=== PATIENT | female | born 1945 | race Caucasian/White ===

== ENCOUNTER 2023-09-12 13:47 | Outpatient (AMB) | payer MEDICARE, OTHER, SELFPAY ==
--- NOTE | 2023-09-12 13:58 | HO.NEPHOV_ITS ---
HPI HPI Comments History of Present Illness Details I had the privilege of seeing Destiny in follow-up of her chronic kidney disease and hypertension. She has history of diabetes and hypertension. She also has history of Raynaud's as well as arthritic symptoms. Her A1c is 6.2. She had seen a sewing machine tester in the past. She was taking nonsteroidal anti- inflammatory medications in the past. She is on RADHA-inhibitor and diuretics. She feels her blood sugar and blood pressure well controlled. She has no history of coronary disease, CVA, CARLOS, CHF, renal stones. She has a new diagnosis of carotid / subclavian stenosis She is due to have CT chest next week to R/O a lung disorder giving SOB.. [facility] Medical History (Updated 09/12/23 @ 14:28 by Aleksander Granados MD) Type 2 diabetes mellitus with renal complication Obstructive sleep apnea Lichen planus of tongue Irritable bowel syndrome Hypersomnia with sleep apnea Hyperlipidemia Hallux valgus of left foot Chronic kidney disease, stage 3a Chronic headache disorder Acquired hypothyroidism Hypertension Vital Signs 09/12/23 14:00 Height 5 ft 7 in Weight 245 lb BMI 38.4 BP 140/80 H Blood Pressure Location Rt brachial Position Sitting Physical Exam Vital Signs: Last Vital Signs BP 140/80 H 09/12/23 14:00 BMI result Body Mass Index 38.4 Const General: comfortable and no acute distress Orientation/consciousness: patient oriented x3 HEENT Head: Yes normocephalic Mouth: Normal oral and palatal mucosa present Eyes EOM: EOMs intact bilaterally Neck Neck: Yes supple Resp Auscultation: clear to auscultation bilaterally Cardio Jugular venous distension: no JVD Rate: regular rate GI Palpation (GI): Soft to palpation Auscultation: normal bowel sounds General: Yes no CVA tenderness Back/Spine/Pelvis Back: no CVA tenderness Skin General skin exam: no rashes or lesions noted Neuro General: patient oriented x3 and moves all extremities Extrem Other: Raynaud's in both upper and lower extremities but more so in the lower extremities. 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 She is on RADHA-inhibitor. She had sulfa allergy and takes only amiloride. She was encouraged to minimize nonsteroidal anti-inflammatories and maintain good hyd ration. She needs good blood sugar and blood pressure control. She may be a candidate for Doppler of renal arteries in the future. Follow-up lab work was ordered. Follow-up appointment was given. Answered all questions. Orders: Orders Creatinine Today I10 - Essential (primary) hypertension, N18.2 - Chronic kidney disease, stage 2 (mild), R80.9 - Proteinuria, unspecified Blood Urea Nitrogen Today I10 - Essential (primary) hypertension, N18.2 - Chronic kidney disease, stage 2 (mild), R80.9 - Proteinuria, unspecified Electrolytes Today I10 - Essential (primary) hypertension, N18.2 - Chronic kidney disease, stage 2 (mild), R80.9 - Proteinuria, unspecified Protein Creatinine Ratio, Ur Today I10 - Essential (primary) hypertension, N18.2 - Chronic kidney disease, stage 2 (mild), R80.9 - Proteinuria, unspecified Coding Level of Care Code Est Pt Level 3 (10828) Diagnoses Primary hypertension I10 Hypertension type: primary hypertension Other proteinuria R80.8 Proteinuria type: other CKD (chronic kidney disease) stage 2, GFR 60-89 ml/min N18.2 Results Reviewed Nephrology Results: No Data to Display
[2023-09-12 14:00] VITALS: BP 140/80; BMI 38.4
== END 2023-09-12 14:38 | disposition home or self-care (01) ==
PROVIDERS: PCP Internal Medicine; Visit Provider Internal Medicine Nephrology
DX: I12.9 Hypertensive chronic kidney disease with stage 1 through stage 4 chronic kidney disease, or unspecified chronic kidney disease (principal); R80.8 Other proteinuria; N18.2 Chronic kidney disease, stage 2 (mild)
CPT/HCPCS: 99213

== ENCOUNTER → 2023-09-12 13:47 | Outpatient (BNVA) | payer MEDICARE, OTHER, SELFPAY | PROVIDERS: PCP Internal Medicine; Visit Provider Internal Medicine Nephrology | DX: I12.9 Hypertensive chronic kidney disease with stage 1 through stage 4 chronic kidney disease, or unspecified chronic kidney disease (principal); N18.2 Chronic kidney disease, stage 2 (mild); R80.8 Other proteinuria | CPT/HCPCS: 99212 ==

== ENCOUNTER 2024-03-12 13:18 | Outpatient (AMB) | payer MEDICARE, OTHER, SELFPAY ==
--- NOTE | 2024-03-12 13:30 | HO.NEPHOV ---
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 She has history of diabetes and hypertension. She also has history of Raynaud's as well as arthritic symptoms. Her A1c is good. She had seen a portfolio manager in the past. She was taking nonsteroidal anti-inflammatory medications in the past. She is on RADHA-inhibitor and diuretics. She feels her blood sugar and blood pressure well controlled. She has no history of coronary disease, CVA, CARLOS, CHF, renal stones. She has a new diagnosis of carotid / subclavian stenosis She had CT chest which has R/O out a lung malignancy. [facility] Medical History (Updated 09/12/23 @ 14:28 by Aleksander Granados MD) Type 2 diabetes mellitus with renal complication Obstructive sleep apnea Lichen planus of tongue Irritable bowel syndrome Hypersomnia with sleep apnea Hyperlipidemia Hallux valgus of left foot Chronic kidney disease, stage 3a Chronic headache disorder Acquired hypothyroidism Hypertension Surgical History History of knee surgery History of tubal ligation History of appendectomy History of tonsillectomy Family History Father Diabetes Social History Alcohol intake: current Patient Tobacco Use Status: Former Tobacco user Use of substances other than those prescribed or required for medical reasons: No Review of Systems Const All systems reviewed & are unremarkable except as noted in HPI and below Physical Exam Vital Signs: Last Vital Signs BP 132/70 03/12/24 13:34 BMI result Body Mass Index 36.2 Const General: comfortable and no acute distress Orientation/consciousness: patient oriented x3 HEENT Head: Yes normocephalic Mouth: Normal oral and palatal mucosa present Eyes EOM: EOMs intact bilaterally Neck Neck: Yes supple Resp Auscultation: clear to auscultation bilaterally Cardio Jugular venous distension: no JVD Rate: regular rate GI Palpation (GI): Soft to palpation Auscultation: normal bowel sounds General: Yes no CVA tenderness Back/Spine/Pelvis Back: no CVA tenderness Skin General skin exam: no rashes or lesions noted Neuro General: patient oriented x3 and moves all extremities Results Reviewed Nephrology Results: No Data to Display Assessment & Plan Assessment & Plan (1) CKD (chronic kidney disease) stage 2, GFR 60-89 ml/min: Code(s): N18.2 - Chronic kidney disease, stage 2 (mild) Category: Medical (2) Hypertension: Code(s): I10 - Essential (primary) hypertension Category: Medical Qualifiers: Hypertension type: primary hypertension Qualified Code(s): I10 - Essential (primary) hypertension Plan 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 She is on RADHA-inhibitor. She had sulfa allergy and takes only amiloride. She was encouraged to minimize nonsteroidal anti-inflammatories and maintain good hydration. She needs good blood sugar and blood pressure control. She may be a candidate for Doppler of renal arteries in the future. Follow-up lab work was ordered. Follow-up appointment was given. Answered all questions Orders: Orders Creatinine Today I10 - Essential (primary) hypertension, N18.2 - Chronic kidney disease, stage 2 (mild) Blood Urea Nitrogen Today I10 - Essential (primary) hypertension, N18.2 - Chronic kidney disease, stage 2 (mild) Electrolytes Today I10 - Essential (primary) hypertension, N18.2 - Chronic kidney disease, stage 2 (mild) Coding Level of Care Code Est Pt Level 4 (15140) Diagnoses CKD (chronic kidney disease) stage 2, GFR 60-89 ml/min N18.2 Primary hypertension I10 Hypertension type: primary hypertension
[2024-03-12 13:34] VITALS: BP 132/70; BMI 36.2
== END 2024-03-12 13:48 | disposition home or self-care (01) ==
PROVIDERS: PCP Internal Medicine; Visit Provider Internal Medicine Nephrology
DX: I12.9 Hypertensive chronic kidney disease with stage 1 through stage 4 chronic kidney disease, or unspecified chronic kidney disease (principal); N18.2 Chronic kidney disease, stage 2 (mild)
CPT/HCPCS: 99214

== ENCOUNTER → 2024-03-12 13:18 | Outpatient (BNVA) | payer MEDICARE, OTHER, SELFPAY | PROVIDERS: PCP Internal Medicine; Visit Provider Internal Medicine Nephrology | DX: I12.9 Hypertensive chronic kidney disease with stage 1 through stage 4 chronic kidney disease, or unspecified chronic kidney disease (principal); N18.2 Chronic kidney disease, stage 2 (mild) | CPT/HCPCS: 99212 ==

== ENCOUNTER 2024-05-16 11:15 | Outpatient (REF) | payer MEDICARE, OTHER, SELFPAY | END 2024-05-16 11:16 | disposition home or self-care (01) | LOC: HO.HOSX 11:15 | PROVIDERS: Visit Provider Orthopaedic Surgery | DX: Z13.89 Encounter for screening for other disorder (principal) ==

== ENCOUNTER 2024-05-22 07:52 | Outpatient (AMB) | payer MEDICARE, OTHER, SELFPAY ==
--- NOTE | 2024-05-22 07:59 | A.OFFVIS_ITS ---
Intake Visit Reasons: Bilateral knee pains Intake Note: Destiny is a 78 year old female who presents with complaints of progressively worsening bilateral knee pains. The patient describes her pains as sharp in nature. Her pains have gotten worse over the last few years in spite of continued non operative treatments. She has done physical therapy exercises which aggravated her pain. She has also had cortisone injections in the past which gave her temporary relief. She has tried Tylenol and anti-inflammatory medicines which gave her minimal relief. She would like to hold off on total knee replacement surgery for as long as possible. Allergies Sulfa (Sulfonamide Antibiotics) Allergy (Verified 05/22/24 08:00) Unknown Medication List - Last Reconciled 05/22/24 by Ever Martin MD acetaminophen ER (Tylenol Arthritis Pain) 1,300 mg PO BID albuterol sulfate 90 mcg/actuation inhalation amiloride mg PO aspirin 81 mg PO BID atorvastatin 80 mg PO DAILY coenzyme Q10 (CoQ-10) 100 mg PO DAILY fluticasone propion-salmeterol 115-21 mcg/actuation (Advair HFA) 2 puffs inhalation BID levothyroxine 25 mcg PO DAILY lisinopril 20 mg PO DAILY magnesium oxide 400 mg PO DAILY mirtazapine 15 mg PO BEDTIME multivitamin 1 tab PO DAILY nortriptyline 50 mg PO BEDTIME PRN omega 0-atp-jml-fish oil 1,000 mg (120 mg-180 mg) (Fish Oil) 1 cap PO BID pen needle, diabetic (BD Ultra-Fine Mini Pen Needle) As directed semaglutide (Ozempic) mg subcut vitamin B complex 1 tab PO DAILY vitamin E mixed units PO BID [facility] Medical History Type 2 diabetes mellitus with renal complication Obstructive sleep apnea Lichen planus of tongue Irritable bowel syndrome Hypersomnia with sleep apnea Hyperlipidemia Hallux valgus of left foot Chronic kidney disease, stage 3a Chronic headache disorder Acquired hypothyroidism Hypertension Surgical History History of knee surgery History of tubal ligation History of appendectomy History of tonsillectomy Family History Father Diabetes Social History Alcohol intake: current Patient Tobacco Use Status: Former Tobacco user Physical Exam Const Other: Well-nourished well-developed very friendly female awake alert and oriented x3 in no acute distress Extrem Other: Bilateral lower extremity examination shows good capillary refill, no skin lesions noted, normal sensation light touch Bilateral knee examination shows minimal effusions, palpable crepitus with range of motion, pain with range of motion, range of motion from -3 degrees to 115 degrees, no instability Office Procedures AMB Joint Injection/Aspiration Joint Injection/Aspiration Primary Site: right knee Prep: site was prepped using aseptic technique Injected: 40 mg of, DepoMedrol and 1% plain lidocaine Procedure: The patient tolerated the procedure well Coding 57975 - Large joint Procedure code (CPT) selection complete AMB Joint Injection/Aspiration Joint Injection/Aspiration Primary Site: left knee Prep: site was prepped using aseptic technique Injected: 40 mg of, DepoMedrol and 1% plain lidocaine Procedure: The patient tolerated the procedure well Coding 14484 - Large joint Procedure code (CPT) selection complete Results Reviewed Results Reviewed: X-rays of the patient's bilateral knee show severe joint space narrowing most significant in the medial compartments and patellofemoral joints, subchondral sclerosis, osteophyte formation, no acute bony abnormalities Assessment & Plan Assessment & Plan (1) Left knee pain: Code(s): M25.562 - Pain in left knee Category: Medical (2) Right knee pain: Code(s): M25.561 - Pain in right knee Category: Medical Plan Destiny presents with bilateral knee pains due to degenerative joint disease. I had a lengthy discussion with the patient regarding the treatment options. The risks and benefits of bilateral knee cortisone injections were discussed at length with the patient. The patient wished to proceed. She tolerated the injections well. She will continue with her home exercise program. She will contact me prior to her follow-up appointment in 3 months should any questions o r concerns arise. Feel free to call me at any time should questions regarding her orthopedic management arise. Thank you very much for asking me to see this very friendly patient. I spent 21 minutes in reviewing the patient's records and imaging studies, seeing the patient and documenting in the medical record. Orders: Orders XR knee LT 3V 05/22/24 M25.562 - Pain in left knee XR knee RT 3V 05/22/24 M25.561 - Pain in right knee AMB Joint Injection/Aspiration 05/22/24 M25.562 - Pain in left knee AMB Joint Injection/Aspiration 05/24/24 M25.561 - Pain in right knee Coding Level of Care Code Est Pt Level 3 (78389) Complex EM visit Add On G2211 Diagnoses Left knee pain M25.562 Right knee pain M25.561 CPT Codes Coding - 38372 Large joint: 36774 - Large joint ([id number]) Coding - 78821 Large joint: 92038 - Large joint ([id number])
== END 2024-05-22 08:37 | disposition home or self-care (01) ==
PROVIDERS: PCP Internal Medicine; Visit Provider Orthopaedic Surgery
DX: M25.562 Pain in left knee (principal); M25.561 Pain in right knee
CPT/HCPCS: 20610; 99213

== ENCOUNTER → 2024-05-22 07:54 | Outpatient (BNV) | payer MEDICARE, OTHER, SELFPAY | PROVIDERS: Visit Provider Radiology Diagnostic Radiology | DX: M21.062 Valgus deformity, not elsewhere classified, left knee (principal); M17.12 Unilateral primary osteoarthritis, left knee | CPT/HCPCS: 73562 ==

== ENCOUNTER 2024-05-22 09:16 | Outpatient (REF) | payer MEDICARE, OTHER, SELFPAY | END 2024-05-22 09:17 | disposition home or self-care (01) | LOC: HO.HOSX 09:16 | PROVIDERS: Visit Provider Orthopaedic Surgery | DX: M25.562 Pain in left knee (principal); M25.561 Pain in right knee | CPT/HCPCS: 20610; 73562; 99212; J1010; J2003 ==

== ENCOUNTER 2024-08-22 12:42 | Outpatient (AMB) | payer MEDICARE, OTHER, SELFPAY ==
--- OUTSIDE RECORDS SUMMARY | 2024-08-22 12:44 | XMS_ITS | Clinical Summary ---
Author Organization [facility] Address [address] [facility] [place] [address] Phone Care Team Providers Care Workers' Compensation Claims Supervisor Name Role Phone ElissarosarioGeoffrey doran Primary Care Provider [phone] Allergies Active Allergy Reactions Criticality Noted Date Comments Sulfa Antibiotics Hives 04/12/2005 Medications levothyroxine (SYNTHROID, LEVOTHROID) 25 MCG tablet Take 1 tablet by mouth 1 (one) time each day 7 Active Diclofenac Sodium 1.6 % gel Apply 1 g topically 2 Active aMILoride (MIDAMOR) 5 MG tablet Take 1 tablet by mouth 1 (one) time each day 7 Active lisinopril 20 MG tablet Take 1 tablet by mouth 1 (one) time each day 8 Active mirtazapine (REMERON) 15 MG tablet Take 15 mg by mouth every night 1 hour before bed 0 Active atorvastatin (LIPITOR) 80 MG tablet Take 1 tablet by mouth 1 (one) time each day 7 Active nortriptyline (PAMELOR) 50 MG capsule Take 1 capsule by mouth at bed time 7 Active liraglutide (Victoza) 18 MG/3ML injection Inject 1.2 mg under the skin 1 (one) time each day 8 Active albuterol HFA (PROVENTIL HFA;VENTOLIN HFA) 108 (90 Base) MCG/ACT inhaler Inhale 2 puffs every 4 (four) hours if needed For wheezing 1 Active clobetasol (TEMOVATE) 0.05 % gel Apply 1 applicator topically every night 7 Active fluticasone (FLONASE) 50 MCG/ACT nasal spray Administer 1 spray into each nostril 2 (two) times a day 7 Active omega-3 (FISH OIL) 1000 MG capsule Active sertraline (ZOLOFT) 50 MG tablet Take 50 mg by mouth 1 (one) time each day 0 Active Vitamin E 500 UNIT/GM powder Activ e Bromfenac Sodium (Prolensa) 0.07 % solution INSTILL 1 DROP IN OPERATED EYE AT BEDTIME FOR 3 WEEKS Active Active Problems Problem Noted Date Diagnosed Date Stage 3a chronic kidney disease 09/15/2022 Hypertension 09/15/2022 Obstructive sleep apnea syndrome 09/25/2020 03/27/2023 Type 2 diabetes mellitus 07/09/2020 023 Hallux valgus of left foot 12/03/201903/27 Arthritis of left knee 05/03/2018 3 Primary gonarthrosis, bilateral 02/01/2018 03/27/2023 Osteoarthritis of knee 07/12/2017 3 Overview (03/27/2023): Bilateral Supartz injections by Dr Martin 06/27/17 Acquired hypothyroidism 12/01/2016 03/27/20 23 Chronic headache disorder 06/15/20112022 Irritable bowel syndrome 06/15/2011 023 Overview (03/27/2023): Alt c/d, onset age 22. Hypertensive retinopathy 12/24/2008 023 Lichen planus 12/24/2008 03/27/2023 Severe obesity 11/28/2007 03/27/2023 Hyperlipidemia 04/12/2005 03/27/2023 Hypersomnia with sleep apnea 04/12/2005 Overview (03/27/2023): IMO update Social History Tobacco Use Types Packs/Day Years Used Date Smoking Tobacco: Never Assessed Comments Unknown Sex and Gender Information Value Date Recorded Sex Assigned at Not on file Legal Sex Female 8:02 AM EST Gender Identity Not on file Sexual Orientation Not on file Last Filed Vital Signs Vital Sign Reading Time Taken Comments Blood Pressure 121/68 03/28/2023 1:37 PM EDT Pulse 102 03/28/2023 1:37 PM EDT Temperature - - Respiratory Rate - - Oxygen Saturation 96% 03/28/2023 1:37 PM EDT Inhaled Oxygen Concentration - - Weight 112 kg (247 lb 6.4 oz) 03/28/2023 1:37 PM EDT Height 167.6 cm (5' 6 ) 09/15/2022 3:13 PM EST Body Mass Index 39.93 09/15/2022 3:13 PM EST Plan of Treatment Health Maintenance Due Date Last Done Comments Diabetes: Ophthalmology Exam 06/30/2022 Diabetes: Pedal Pulse Checked 06/30/2022 Diabetes: Sensory Foot Exam 06/30/2022 Diabetes: Visual Foot Exam 06/30/2022 Diabetes: Hemoglobin A1C 05/18/2023 02/15/2023, 11/0 02/2022 Influenza Vaccine (#1) 2024 , 02/22/2020, 03/30/2019, Additional history exists Hepatitis B Vaccine Aged Out 09/09/2008, 10/13/2001, 09/18/2001 No longer eligible based on patient's age to complete this topic Pneumococcal Vaccine: 65+ Years Completed 10/06/2015, 03/13/2013 Insurance MEDICARE [facility] MEDICARE [facility] Care Teams Workers' Compensation Claims Supervisor Relationship Specialty Start Date End Date Geoffrey Dooley [address] [place] [id number] PCP - General Internal Medicine 03/28/23
--- OUTSIDE RECORDS SUMMARY | 2024-08-22 12:45 | XMS_ITS | Encounter Summary ---
Author Organization [facility] Address [address] [place] [address] Care Team Providers Care Plant Anatomy Teacher Name Role Phone Geoffrey Velasco MD Primary Care Provider [phone] Reason for Visit * Reason Onset Date Comments DME request 08/12/2024 Encounter Details Date Type Department Care Team ([facility] Contact Info) Description 08/19/2024 Telephone [facility] [address] [place] [address] [place] DME request Social History Tobacco Use Types Packs/Day Years Used Date Smoking Tobacco: Former Cigarettes 1.5 28.7 0 07/10/1965 - 04/09/1994 Smokeless Tobacco: Never Alcohol Use Standard Drinks/Week Comments Yes 0 (1 standard drink = 0.6 oz pur e alcohol) Housing Instability Answer Date Recorde d Are you worried that in the next 2 months you may not have stable housing? No 05/27/2024 Food Access & Nutrition Answer Date Rec orded Do you have access to a vari ety of food including fruits and vegetables? Yes 05/27/2024 Access to Healthcare Answer Date Record ed Within the last 3 months, ho w many times did you visit the emergency department for your medical care? 0 05/27/2024 Health Literacy Answer Date Recorded How often do you need to hav e someone help you when you read instructions, pamphlets, or other written material from your doctor or pharmacy? Never 05/27/2024 Caregiver: How often do you need to have someone help you when you read instructions, pamphlets, or other written material from your doctor or pharmacy? Not on file 05/27/2024 Financial Risk Answer Date Recorded How hard is it for you to pa y for the very basics like food, housing, medical care, and air conditioning / heating? Not very hard 05/27/2024 Transportation Answer Date Recorded Has the lack of transportati on kept you from meetings, work, or from getting things needed for daily living? No Has the lack of transportati on kept you from medical appointments or from getting medications? No 05/27/2024 Social Isolation Answer Date Recorded How often do you feel lonely or isolated from th ose around you? Never 05/27/2024 Food Risk Answer Date Recorded Within the past 12 months we worried whether our food would run out before we got money to buy more. Never true 05/27/2024 Within the past 12 months th e food we bought just didn't last and we didn't have money to get more. Never true 05/27/2024 Dependent Care Answer Date Recorded Do you need help finding or paying for care for your loved ones. For example, child care associate or elderly care for an older adult? No 05/27/2024 Education Answer Date Recorded Do you think completing more education or training, like finishing a GED, going to college, or learning a trade, would be helpful for you? No 05/27/2024 Employment and Income Answer Date Recor ded During the last four weeks, have you been actively looking for work? No 05/27/2024 Living Situation Answer Date Recorded What is your living situation? 1 07/27/2023 Comments Unknown Sex and Gender Information Value Date Recorded Sex Assigned at Not on file Legal Sex Female 2:35 AM EST Gender Identity Not on file Sexual Orientation Not on file documented as of this encounter Progress Notes * [address] [place] - 08/19/2024 10:39 AM EST Order for overnight oximetry faxed to [facility]. Fax confirmation received documented in this encounter Plan of Treatment Upcoming Encounters Date Type Department Care Team (Late st Contact Info) Description 10/04/2024 3:00 PM EDT Office Visit Internal Medicine - [facility] [address] [facility] [place] [place] [address] Tami Young, GRAEME [address] [place] [address] 12/12/2024 1:00 PM EDT Office Visit Pulmonolgy - [place] [address] [place] [address] Mignon Denis NP [address] [place] [address] 12/23/2024 12:00 PM EDT Ancillary Procedure [facility] [address] [facility] [address] [place] [phone] 03/13/2025 11:00 AM EDT Office Visit Vascular Surgery - [place] [address] [place] [address] Jez Koenig MD [address] [place] [address] documented as of this encounter Visit Diagnoses Not on filedocumented in this encounter Additional Health Concerns Assessment Noted Time PHQ-9 Depression Total Score: 0 05/27/20 24 6:16 PM EST documented as of this encounter Care Teams Plant Anatomy Teacher Relationship Specialty Start Date End Date Geoffrey Velasco MD [address] [place] [address] PCP - General Internal Medicine 04/21/20 documented as of this encounter
--- OUTSIDE RECORDS SUMMARY | 2024-08-22 12:45 | XMS_ITS | Clinical Summary ---
Author Organization [facility] Address [address] [place] [address] Care Team Providers Care Pr Specialist Name Role Phone Vy France MD Primary Care Provider [phone] Allergies Active Allergy Reactions Criticality Noted Date Comments Sulfa Antibiotics 03/20/2017 Medications Medication Sig Dispensed Refills Start Date End Date Status AMILoride (MIDAMOR) 5 MG tablet TAKE 1 TABLET BY MOUTH EVERY DAY 1 02/10/2017 Active atorvastatin (LIPITOR) tablet 80 mg TAKE 1 TABLET BY MOUTH EVERY DAY 1 02/26/2017 Active clobetasol (TEMOVATE) 0.05 % GEL APPLY TOPICALLY AT BEDTIME DIRECTED BY DR CORNELL 1 01/01/2017 Active diltiazem (CARDIZEM CD) 240 MG 24 hr capsule Take 240 mg by mouth daily. 1 01/30/2017 Active fluticasone (FLONASE) 50 MCG/ACT nasal spray USE 1 SPRAY INTO EACH NOSTRIL TWICE DAILY 5 12/19/2016 Active levothyroxine (SYNTHROID, LEVOXYL) tablet 25 mcg TAKE 1 TABLET BY MOUTH EVERY DAY 3 02/26/2017 Active lisinopril (PRINIVIL,ZESTRIL) tablet 10 mg Take 10 mg by mouth daily. 1 02/03/2017 Active nortriptyline (PAMELOR) 50 MG capsule Take 50 mg by mouth every night at bedtime. 5 02/14/2017 Active B Complex Vitamins (VITAMIN-B COMPLEX) TABS Take by mouth. 0 Active Calcium Citrate-Vitamin D (CALCIUM + D PO) Take by mouth. 0 Acti ve Coenzyme Q10 (CO Q-10) 30 MG CAPS Take by mouth. 0 Acti ve cycloSPORINE (RESTASIS) 0.05 % ophthalmic emulsion Apply to eye. 0 Ac tive Yantis-3 Fatty Acids (FISH OIL PO) by Does not apply route. 0 Active glucosamine-chondroit in 500-400 MG tablet Take by mouth. 0 Active MAGNESIUM CHLORIDE PO Take by mouth. 0 Active Melatonin ER 3 MG TBCR Take by mouth. 0 Active Multiple Vitamins-Minerals (MULTIVITAMIN PO) Take by mouth. 0 Act renetta NUTRITIONAL SUPPLEMENTS PO Take 2 tablets by mouth. 0 Active aspirin (SB LOW DOSE ASA EC) 81 MG EC tablet 1 TABLET DAILY 0 10/26/2007 Active Vitamin E 500 UNIT/GM POWD by Does not apply route. 0 Active Insulin Pen Needle (PEN NEEDLES 09/22 ) 31G X 5 MM MISC 1 each by Does not apply route. 0 01/24/2018 Active liraglutide (VICTOZA) injection 18 mg/3 mL Inject 1.2 mg under the skin. 0 01/24/2018 Active aMILoride (MIDAMOR) 5 MG tablet TAKE 1 TABLET BY MOUTH EVERY DAY 0 10/13/2017 Active atorvastatin (LIPITOR) tablet 80 mg TAKE 1 TABLET BY MOUTH EVERY DAY 0 11/20/2017 Active glucosamine-chondroit in 500-400 MG tablet Take by mouth. 0 Active levothyroxine (SYNTHROID, LEVOXYL) tablet 25 mcg TAKE 1 TABLET BY MOUTH EVERY DAY 0 11/20/2017 Active lisinopril (PRINIVIL,ZESTRIL) tablet 20 mg Take 20 mg by mouth. 0 08/29/2017 Active nortriptyline (PAMELOR) 50 MG capsule TAKE ONE CAPSULE BY MOUTH AT BEDTIME 0 09/18/2017 Active albuterol (PROVENTIL HFA;VENTOLIN HFA) 108 (90 Base) MCG/ACT inhaler Inhale 2 puffs into the lungs. 0 Active liraglutide (VICTOZA) injection 18 mg/3 mL Inject 1.2 mg under the skin. 0 10/24/2018 Active meloxicam (MOBIC) 15 MG tablet Take 15 mg by mouth. 0 05/15/2019 Active sertraline (ZOLOFT) 50 MG tablet Take 50 mg by mouth daily. 0 01/17/2020 Active mirtazapine (REMERON) 15 MG tablet TAKE 1 TABLET BY MOUTH ONE HOUR BEFORE BEDTIME 0 12/02/2019 Active ibuprofen 800 MG tablet TAKE 1 TABLET BY MOUTH 2 TIMES DAILY NEEDED FOR PAIN. 0 01/08/2021 Active methocarbamol (ROBAXIN) 500 MG tablet 0 07/16/2021 Active Diclofenac Sodium 1.6 % GEL Apply 1 g topically. 0 11/12/2021 Active Active Problems Problem Noted Date Diagnosed Date Arthritis of knee, right 05/03/2018 Arthritis of knee, left 05/03/2018 Primary osteoarthritis of both knees 02/01/2018 Family History Medical History Relation Name Comments Diabetes Father Hypertension Father Heart disease Mother Hyperlipidemia Mother Relation Name Status Comments Father Mother Social History Tobacco Use Types Packs/Day Years Used Date Smoking Tobacco: Former Smokeless Tobacco: Never Alcohol Use Standard Drinks/Week Comments Yes 0 (1 standard drink = 0.6 oz pur e alcohol) Sex and Gender Information Value Date Recorded Sex Assigned at Not on file Gender Identity Not on file Sexual Orientation Not on file Job Start Date Occupation Industry Not on file Not on file Not on file Last Filed Vital Signs Vital Sign Reading Time Taken Comments Blood Pressure - - Pulse - - Temperature - - Respiratory Rate - - Oxygen Saturation - - Inhaled Oxygen Concentration - - Weight 64.4 kg (141 lb 15.6 oz) 07/28/2017 2:36 PM EST Height 170 cm (5' 6.93 ) 07/28/2017 2:36 PM EST Body Mass Index 22.28 07/28/2017 2:36 PM EST Plan of Treatment Health Maintenance Due Date Last Done Comments Hepatitis C Screening 1945 COVID-19 Vaccine (#1) 03/30/1946 Depression Screening 1959 Preventative Health Evaluation 09/27/1965 Fall Risk Assessment 09/27/2012 Osteoporosis Screening (DEXA Scan) 09/27/2012 RSV Adult > 60+ Yrs or (1 - 1-dose 75+ series) 09/27/2022 Influenza Vaccine (#1) 2024 2, 02/22/2020, 03/30/2019, Additional history exists DTap / Tdap / Td (3 - Td or Tdap) 11/02/2028 11/02/2018, 09/09/2008, 07/24/1998 Pneumococcal Vaccine Completed 10/06/2015, 03/13/20 13 Shingrix-Zoster Vaccine Completed 01/24/2020, 09/19 Hepatitis B Vaccines Aged Out No long er eligible based on patient's age to complete this topic RSV Ped < 20 months Aged Out No longe r eligible based on patient's age to complete this topic Care Teams Pr Specialist Relationship Specialty Start Date End Date Vy France MD PCP - General Internal Medicine 02/27/17
--- OUTSIDE RECORDS SUMMARY | 2024-08-22 12:45 | XMS_ITS | Data Portability ---
Author Organization [place] [facility] Yordan Magana AONE [place] Address [address] [facility] [address] [place] [address] Care Team Providers Care Manager Vehicle Name Role Phone ABI KELLY Referring Provider ABI KELLY Primary Care Provider [phone] Assessment Encounter Date Assessment Date Assessment LastModified by Organization Details LastModified Time 11/25/2022 11/25/2022 Pleasant 77-year-old female bilateral knee arthritis grade 4 she states she is not interested in total joint replacement surgery. She gets good relief with cortisone injections. After verbal consent was obtained. The procedures were carried out independently and bilaterally on the knees. She is right these procedures well. Aftercare instructions were discussed in detail. Should her symptoms not improve or worsen she should contact my office. Otherwise I will see her back in 3 months time for repeat clinical exam. I did review her radiographs with her in detail at today's visit. Indirect care and treatment in conjunction with Dr. Corral Additional treatment plan discussed with the patient in detail included the following; - Provider focused nonsteroidal anti-inflammator y regimen (discussed were the pros, cons, benefits and risks as well as any black box warnings) in patients over 60 years old they should be very cautious in taking these medications due to potential decreased kidney function and or elevated blood pressure. - Analgesic pain medication for pain suppression (discussed were the pros, cons, benefits and risks as well as any black box warnings) - The use of topical pain relieving medication were discussed - The use of ice to decrease inflammation and pain - The use of assistive ambulatory devices for ambulation and fall prevention - Formal specific guided physical therapy program I reviewed my findings at length with the patient today. ??We discussed the nature and etiology of this problem along with current treatment options. We discussed the expected course and outcomes and what to expect. We also discussed risks and benefits. ?? All of their questions were answered today, and there was exhibited understanding and comprehension of all that was discussed. Time Spent: 10 minutes were spent reviewing previous imaging and charting. ??10 minutes were spent obtaining patient history. ??5 minutes were spent on physical exam. ??5??minutes were spent explaining diagnosis and assessment. Today's documentation was made using voice recognition software. This note may contain grammatical errors secondary to the software. Not available 11/25/2022 10:35:04 02/23/2023 02/23/2023 Pleasant 77-year-old female bilateral knee arthritis who is not interested in total joint replacement surgery. She gets good relief with cortisone injections. After verbal consent was obtained. The procedures were carried out independently and bilaterally on the knees. She tolerated the procedures well aftercare instructions were discussed in detail. Should her symptoms not improve or worsen she should contact my office. Otherwise I will see her back in 3 months time for repeat clinical exam. I did review her radiographs with her in detail at today's visit. Indirect care and treatment in conjunction with Dr. Corral Additional treatment plan discussed with the patient in detail included the following; - Provider focused nonsteroidal anti-inflammator y regimen (discussed were the pros, cons, benefits and risks as well as any black box warnings) in patients over 60 years old they should be very cautious in taking these medications due to potential decreased kidney function and or elevated blood pressure. - Analgesic pain medication for pain suppression (discussed were the pros, cons, benefits and risks as well as any black box warnings) - The use of topical pain relieving medication were discussed - The use of ice to decrease inflammation and pain - The use of assistive ambulatory devices for ambulation and fall prevention - Formal specific guided physical therapy program I reviewed my findings at length with the patient today. ??We discussed the nature and etiology of this problem along with current treatment options. We discussed the expected course and outcomes and what to expect. We also discussed risks and benefits. ?? All of their questions were answered today, and there was exhibited understanding and comprehension of all that was discussed. Time Spent: 10 minutes were spent reviewing previous imaging and charting. ??10 minutes were spent obtaining patient history. ??5 minutes were spent on physical exam. ??5??minutes were spent explaining diagnosis and assessment. Today's documentation was made using voice recognition software. This note may contain grammatical errors secondary to the software. Not available 02/24/2023 08:01:25 06/08/2023 06/08/2023 Pleasant 77-year-old female bilateral knee arthritis who is still not interested in total joint replacement surgery. She gets good relief with cortisone injections. After verbal consent was obtained. The procedures were carried out independently and bilaterally on the knees. She tolerated the procedures well aftercare instructions were discussed in detail. Should her symptoms not improve or worsen she should contact my office. Otherwise I will see her back in 3 months time for repeat clinical exam. I did review her radiographs with her in detail at today's visit. Patient was seen and evaluated by Michael Augustin PA-C in indirect conjuction with Documenting Provider: Camacho Corral MD . He/She agrees with history, physical examination, tests/diagnostic imaging, and treatment plan. Additional treatment plan discussed with the patient (only initiated if in boldface font) otherwise not applicable. Treatment may include the following; - Provider focused nonsteroidal anti-inflammator y regimen (discussed were the pros, cons, benefits and risks as well as any black box warnings) in patients over 60 years old they should be very cautious in taking these medications due to potential decreased kidney function and or elevated blood pressure. - Analgesic pain medication for pain suppression (discussed were the pros, cons, benefits and risks as well as any black box warnings) - The use of topical pain relieving medication were discussed - The use of ice to decrease inflammation and pain - The use of assistive ambulatory devices for ambulation and fall prevention - Formal specific guided physical therapy program I reviewed my findings at length with the patient today. ??We discussed the nature and etiology of this problem along with current treatment options. We discussed the expected course and outcomes and what to expect. We also discussed risks and benefits. ?? All of their questions were answered today, and there was exhibited understanding and comprehension of all that was discussed. Time Spent: 10 minutes were spent reviewing previous imaging and charting. ??10 minutes were spent obtaining patient history. ??5 minutes were spent on physical exam. ??5??minutes were spent explaining diagnosis and assessment. Today's documentation was made using voice recognition software. This note may contain grammatical errors secondary to the software. Not available 06/08/2023 12:50:18 09/14/2023 09/14/2023 Pleasant 77-year-old female bilateral knee arthritis who is still not interested in total joint replacement surgery. She gets good relief with cortisone injections. After verbal consent was obtained. The procedures were carried out independently and bilaterally on the knees. She tolerated the procedures well aftercare instructions were discussed in detail. Should her symptoms not improve or worsen she should contact my office. Patient was seen and evaluated by Michael Augustin PA-C in indirect conjuction with Documenting Provider: Camacho Corral MD . He/She agrees with history, physical examination, tests/diagnostic imaging, and treatment plan. Additional treatment plan discussed with the patient (only initiated if in boldface font) otherwise not applicable. Treatment may include the following; - Provider focused nonsteroidal anti-inflammator y regimen (discussed were the pros, cons, benefits and risks as well as any black box warnings) in patients over 60 years old they should be very cautious in taking these medications due to potential decreased kidney function and or elevated blood pressure. - Analgesic pain medication for pain suppression (discussed were the pros, cons, benefits and risks as well as any black box warnings) - The use of topical pain relieving medication were discussed - The use of ice to decrease inflammation and pain - The use of assistive ambulatory devices for ambulation and fall prevention - Formal specific guided physical therapy program I reviewed my findings at length with the patient today. ??We discussed the nature and etiology of this problem along with current treatment options. We discussed the expected course and outcomes and what to expect. We also discussed risks and benefits. ?? All of their questions were answered today, and there was exhibited understanding and comprehension of all that was discussed. Time Spent: 10 minutes were spent reviewing previous imaging and charting. ??10 minutes were spent obtaining patient history. ??5 minutes were spent on physical exam. ??5??minutes were spent explaining diagnosis and assessment. Today's documentation was made using voice recognition software. This note may contain grammatical errors secondary to the software. Not available 09/15/2023 08:47:32 12/28/2023 12/28/2023 78-year-old female with bilateral knee pain. History, examination and x-rays are consistent with advanced oaeo-sj-gdbe osteoarthritis. After discussion regarding treatment options she wishes to proceed with cortisone injections to bilateral knees. See the attached procedure note. Follow-up is as needed. This patient was seen and evaluated by Michael Robert MS, PAConcepción in indirect conjunction with documenting/supe rvising provider Camacho Corral MD. He agrees with history, physical examination, tests/diagnostic imaging, and treatment plan. This document was generated using voice recognition software. As a result, there may be unintended spelling, grammatical and/or textual errors. Not available 12/28/2023 11:12:27 Plan of Treatment Reminders Order Date Submit Date Provider Last Modified By Organization Details Last Modified Time Details Appointments None recorded. Lab None recorded. Referral None recorded. Procedures None recorded. Surgeries None recorded. Imaging XR, knee, 4 or more view 2023 024 [email or web address] 2 [facility], [address], [place], [address], 4 11:22:24 XR, knee, 4 or more view 2023 024 [email or web address] 2 [facility], [address], [place], [address], 4 11:22:24 XR, knee, 1 or 2 view - Left Knee Pain 2022 023 [facility], [address], [place], [address], 3 12:17:33 XR, knee, 1 or 2 view - Right Knee Pain 2022 023 [facility], [address], [place], [address], 3 12:17:33 XR, knee, weightbeari ng - Bilateral Knee Pain 2022 023 [facility], [address], [place], [address], 3 12:17:33 Medication Orders Marcaine (PF) 0.5 % (5 mg/mL) injection solution [address]/[id number], [address], [place], [address], 4 11:14:32 lidocaine (PF) 100 mg/5 mL (2 %) injection syringe [address], [address], [place], [address], 4 11:14:32 triamcinolo ne acetonide 40 mg/mL suspension for injection [address], [address], [place], [address], 4 11:14:32 Marcaine (PF) 0.5 % (5 mg/mL) injection solution [address]/[facility], [address], [place], [address], 4 11:14:32 lidocaine (PF) 100 mg/5 mL (2 %) injection syringe [address]/[facility]17, [address], [place], [address], 4 11:14:32 triamcinolo ne acetonide 40 mg/mL suspension for injection [address]/[facility]17, [address] [place], [address], 4 11:14:32 Kenalog 40 mg/mL suspension for injection 2023 024 Not available 4 13:26:02 lidocaine (PF) 10 mg/mL (1 %) injection solution 2023 024 Not available 4 13:26:02 Kenalog 40 mg/mL suspension for injection 2023 024 Not available 4 13:26:02 lidocaine (PF) 10 mg/mL (1 %) injection solution 2023 024 Not available 4 13:26:02 Kenalog 40 mg/mL suspension for injection 2022 023 [email or web address] Not available 4 11:32:00 lidocaine (PF) 10 mg/mL (1 %) injection solution 2022 023 [email or web address] Not available 4 11:32:03 Kenalog 40 mg/mL suspension for injection 2022 023 [email or web address] Not available 4 11:32:00 lidocaine (PF) 10 mg/mL (1 %) injection solution 2022 023 [email or web address] Not available 4 11:32:03 Kenalog 40 mg/mL suspension for injection 2022 023 [email or web address] Not available 4 11:32:00 lidocaine (PF) 10 mg/mL (1 %) injection solution 2022 023 [email or web address] Not available 4 11:32:03 Kenalog 40 mg/mL suspension for injection 2022 023 [email or web address] Not available 4 11:32:00 lidocaine (PF) 10 mg/mL (1 %) injection solution 2022 023 [email or web address] Not available 4 11:32:03 Kenalog 40 mg/mL suspension for injection 2022 023 [email or web address] [facility] #[id number], [address], [place], [address], 4 11:32:00 lidocaine (PF) 10 mg/mL (1 %) injection solution 2022 023 [address], [place], [address], 4 11:32:03 Kenalog 40 mg/mL suspension for injection 2022 023 [address], [address], [place], [address], 4 11:32:00 lidocaine (PF) 10 mg/mL (1 %) injection solution 2022 023 [address] [place], [address], 11:32:03 Patient TargetsNo targets recorded. Patient Instructions Encounter Date Encounter Id Patient Instructions Last Modified By Organization Details Last Modified Time 11/25/2022 [id number] You have been provided with a cortisone injection in order to reduce the pain and inflammation that you are experiencing. The injection consists of two medications. Cortisone (an anti-inflammatory that will take 48-72 hours to take effect) and Lidocaine (a numbing agent that will last 2-3 hours). Please note that not everyone will have a lasting response following the injection. PATIENT INSTRUCTIONS Once the Lidocaine wears off, you may have an increase in your pain. I recommend icing the affected area for 20 minutes 3-4 times per day. It is recommended that you refrain from any high level activities using the joint or limb that was injected for approximately 24-48 hours. Normal day-to-day activities are generally not a problem. POSSIBLE SIDE EFFECTS Individuals with dark complexions may experience some skin discoloration locally at the site of the injection. There is the possibility of an increase in discomfort within 48 hours following the injection. This is called a ? flare? . To help minimize the chances of this, please see the post-injection instructions above. There is a less than 1% chance of an infection. If you notice any signs of infection (redness, warmth, drainage, fever greater than 100 degrees) please call our office or contact us through the portal [facility]. Not available 11/25/2022 10:34:22 Bilateral knee x-rays 4 view AP, Alaniz, lateral, sunrise view reveals bilateral knee arthritis predominantly in the medial compartment with subchondral sclerosis, osteophyte formation. As well as notable bilateral patellofemoral joint space narrowing grade 4 no acute bony abnormality is observed. Not available 11/25/2022 10:35:40 02/23/2023 [id number] You have been provided with a cortisone injection in order to reduce the pain and inflammation that you are experiencing. The injection consists of two medications. Cortisone (an anti-inflammatory that will take 48-72 hours to take effect) and Lidocaine (a numbing agent that will last 2-3 hours). Please note that not everyone will have a lasting response following the injection. PATIENT INSTRUCTIONS Once the Lidocaine wears off, you may have an increase in your pain. I recommend icing the affected area for 20 minutes 3-4 times per day. It is recommended that you refrain from any high level activities using the joint or limb that was injected for approximately 24-48 hours. Normal day-to-day activities are generally not a problem. POSSIBLE SIDE EFFECTS Individuals with dark complexions may experience some skin discoloration locally at the site of the injection. There is the possibility of an increase in discomfort within 48 hours following the injection. This is called a ? flare? . To help minimize the chances of this, please see the post-injection instructions above. There is a less than 1% chance of an infection. If you notice any signs of infection (redness, warmth, drainage, fever greater than 100 degrees) please call our office or contact us through the portal [facility]. Not available 02/24/2023 07:59:38 06/08/2023 [id number] You have been provided with a cortisone injection in order to reduce the pain and inflammation that you are experiencing. The injection consists of two medications. Cortisone (an anti-inflammatory that will take 48-72 hours to take effect) and Lidocaine (a numbing agent that will last 2-3 hours). Please note that not everyone will have a lasting response following the injection. PATIENT INSTRUCTIONS Once the Lidocaine wears off, you may have an increase in your pain. I recommend icing the affected area for 20 minutes 3-4 times per day. It is recommended that you refrain from any high level activities using the joint or limb that was injected for approximately 24-48 hours. Normal day-to-day activities are generally not a problem. POSSIBLE SIDE EFFECTS Individuals with dark complexions may experience some skin discoloration locally at the site of the injection. There is the possibility of an increase in discomfort within 48 hours following the injection. This is called a ? flare? . To help minimize the chances of this, please see the post-injection instructions above. There is a less than 1% chance of an infection. If you notice any signs of infection (redness, warmth, drainage, fever greater than 100 degrees) please call our office or contact us through the portal [facility]. Not available 06/08/2023 12:48:41 09/14/2023 [id number] You have been provided with a cortisone injection in order to reduce the pain and inflammation that you are experiencing. The injection consists of two medications. Cortisone (an anti-inflammatory that will take 48-72 hours to take effect) and Lidocaine (a numbing agent that will last 2-3 hours). Please note that not everyone will have a lasting response following the injection. PATIENT INSTRUCTIONS Once the Lidocaine wears off, you may have an increase in your pain. I recommend icing the affected area for 20 minutes 3-4 times per day. It is recommended that you refrain from any high level activities using the joint or limb that was injected for approximately 24-48 hours. Normal day-to-day activities are generally not a problem. POSSIBLE SIDE EFFECTS Individuals with dark complexions may experience some skin discoloration locally at the site of the injection. There is the possibility of an increase in discomfort within 48 hours following the injection. This is called a ? flare? . To help minimize the chances of this, please see the post-injection instructions above. There is a less than 1% chance of an infection. If you notice any signs of infection (redness, warmth, drainage, fever greater than 100 degrees) please call our office or contact us through the portal [facility]. Not available 09/15/2023 08:46:31 12/28/2023 [id number] {{2 3 4 5 6 7 8* 9 }} view X-ray study obtained during today's office encounter show evidence of {{mild moderate se alex*}} {{right left bilat eral*}} {{hip knee*}} osteoarthritis. There is joint space narrowing, subchondral sclerosis and marginal osteophytosis. Kellgren-Alex grade {{0 1 2 3 4*}}. No evidence of acute fracture or osteolytic findings. There is complete collapse of medial joint space bilaterally. Not available 12/28/2023 11:14:18 Reason for Referral None Reported. Problems Name Problem SNOMED Code Status Onset Date Resolution Date Notes Provider Name and Address Organization Details Recorded Time Pain of bilateral knee joints 1261722074171 04 Active 2022 MICHAEL AUGUSTIN PA-C [address], [place], [address], [place] [facility] 3 07:59:43 Osteoarthri tis of right knee joint 0840421588444 00 Active 2022 MICHAEL AUGUSTIN PA-C [address], [place], [address], [place] [facility], [facility] 3 10:32:55 Osteoarthri tis of left knee joint 5265265837708 09 Active 2022 MICHAEL AUGUSTIN PA-C [address], [place], [address], [place] [facility], [facility] 3 10:33:00 Problem Notes None recorded. Procedures Surgical History Date Name Laterality Status Provider Name and Address Organization Details Recorded Time 4 MJG Knee injection w/US completed MICHAEL ROBERT PA-C [address], [place], [address], [place] [facility], P 12/28/2023 11:11:46 4 Knee Joint/Bursa Asp & Inj completed MICHAEL AUGUSTIN PA-C [address], [place], [address], [place] [facility], P 09/15/2023 08:46:31 3 Knee Joint/Bursa Asp & Inj completed MICHAEL AUGUSTIN PA-C [address], [place], [address], [place] [facility], P 06/08/2023 12:48:41 3 Knee Joint/Bursa Asp & Inj completed MICHAEL AUGUSTIN PA-C [address], [place], [address], [place] [facility], P 02/24/2023 07:59:38 3 Knee Joint/Bursa Asp & Inj completed MICHAEL AUGUSTIN PA-C [address], [place], [address], [place] [facility] P 11/25/2022 10:32:45 Imaging Results None recorded. Procedure Notes None recorded. Medical Equipment None Reported. Allergies Allergen ID Allergen Name Allergen Category Reaction Reaction Severity Criticality Documentation Date Start Date Code Code System Note Provider Name and Address Organization Details Recorded Time 89623 Substance with sulfonami de structure and antibacte rial mechanism of action (substanc e) medicatio n Not available Not available Not available 06/08/2023 77726 8003 SNOMED [facility], [place] [facility], [facility] 3 13:05:26 Medications Name Sig Start Date Stop Date Status Note LastModified by Organization Details LastModified Time atorvastati n 80 mg tablet TAKE 1 TABLET BY MOUTH EVERY DAY active Not Available Not Available No t Available lisinopril 20 mg tablet TAKE 1 TABLET BY MOUTH EVERY DAY active Not Available Not Available No t Available methylpredn isolone 4 mg tablet PLEASE SEE ATTACHED FOR DETAILED DIRECTION S active Not Available Not Available No t Available levothyroxi ne 25 mcg tablet TAKE 1 TABLET BY MOUTH EVERY DAY active Not Available Not Available No t Available amiloride 5 mg tablet TAKE 1/2 TABLET BY MOUTH DAILY FOR 180 DAYS active Not Available Not Available No t Available prednisolon e acetate 1 % eye drops,suspe nsion INSTILL 1 DROP IN LASERED EYE 3 TIMES A DAY FOR 5 DAYS active Not Available Not Available No t Available triamcinolo ne acetonide 40 mg/mL suspension for injection Take 40 mg by injection route. 2023 active Not Available Not Available Not Avai lable mirtazapine 15 mg tablet TAKE 1 TABLET BY MOUTH ONE HOUR BEFORE BEDTIME active Not Available Not Available No t Available albuterol sulfate HFA 90 mcg/actuati on aerosol inhaler INHALE 2 PUFFS BY MOUTH EVERY 4 HOURS NEEDED FOR WHEEZE OR FOR SHORTNESS OF BREATH active Not Available Not Available No t Available nortriptyli ne 50 mg capsule TAKE 1 CAPSULE BY MOUTH EVERYDAY AT BEDTIME active Not Available Not Available No t Available cyclobenzap rine 5 mg tablet TAKE 1 TABLET BY MOUTH 3 TIMES DAILY NEEDED FOR MUSCLE SPASMS FOR UP TO 5 DAYS *NOT COVD* 06/08 completed Not Available Not Available Not Available Marcaine (PF) 0.5 % (5 mg/mL) injection solution Take 4 mL by injection route. 2023 active Not Available Not Available Not Avai lable BD Ultra-Fine Mini Pen Needle 31 gauge x /16 USE 1 PEN NEEDLE ONCE DAILY active Not Available Not Available No t Available lidocaine (PF) 10 mg/mL (1 %) injection solution Take 2 mL by injection route. 2023 active Not Available Not Available Not Avai lable Advair HFA 115 mcg-21 mcg/actuati on aerosol inhaler PLEASE SEE ATTACHED FOR DETAILED DIRECTION S active Not Available Not Available No t Available lidocaine (PF) 100 mg/5 mL (2 %) injection syringe Take 4 mL by injection route. 2023 active Not Available Not Available Not Avai lable Prolensa 0.07 % eye drops INSTILL 1 DROP IN OPERATED EYE AT BEDTIME FOR 3 WEEKS 06/08 completed Not Available Not Available Not Available Victoza 3-Jeffery 0.6 mg/0.1 mL (18 mg/3 mL) subcutaneou s pen injector INJECT 1.2 MG UNDER THE SKIN ONCE DAILY active Not Available Not Available No t Available Ozempic 0.25 mg or 0.5 mg (2 mg/3 mL) subcutaneou s pen injector INJECT 0.25 MG INTO THE SKIN EVERY 7 DAYS FOR 14 DAYS, THEN 0.5 MG EVERY 7 DAYS FOR 90 DAYS. active Not Available Not Available No t Available Vitals None Recorded Social History None recorded. Functional Status None recorded. Mental Status None recorded. Family History Nothing Reported. Medical History No medical history recorded. Gynecological HistoryNo gynecological history recorded. Obstetrics History GPAL:G 0 P 0 0 0 0 Past Encounters Encounter ID Performer Location Encounter Start Date Encounter Closed Date Diagnosis/Indication Diagnosis SNOMED-CT Code Diagnosis ICD10 Code Diagnosis Note [id number] MD ADOLFO [facility]ek[facility] [address] [place] [address] 11/25/2022 10:01:15 11/25/2022 10:39:21 Pain of bilateral knee joints 4711757234 04148 M25.561 M25.562 Osteoarthr itis of right knee joint 3245556787 M17.11 Osteoarthr itis of left knee joint 8459275748 90581 M17.12 [id number] [facility] [address] [address] 02/23/2023 12:55:08 02/23/2023 13:29:47 Osteoarthritis of right knee joint 8039836473 M17.11 Osteoarthr itis of left knee joint 3950768891 18874 M17.12 Pain of bi lateral knee joints 2978182820 09873 M25.561 M25.562 [id number] MD ADOLFO Cheek [address] [place] [address] 06/08/2023 12:47:14 06/08/2023 13:30:34 Osteoarthritis of right knee joint 3440948099 21885 M17.11 Osteoarthr itis of left knee joint 9642703460 86002 M17.12 Pain of bi lateral knee joints 6468500601 80695 M25.561 M25.562 [id number] MD ADOLFO [facility]eky[facility] [address] [address] 09/14/2023 11:29:49 09/14/2023 11:50:47 Osteoarthritis of left knee joint 3493982748 01573 M17.12 Osteoarthr itis of right knee joint 4064113386 M17.11 Pain of bi lateral knee joints 6158338326 02261 M25.561 M25.562 [id number] [facility] [address] [address] 12/28/2023 10:35:48 12/28/2023 11:22:24 Pain of right knee joint 5263168693 40227 M25.561 Additional diagnosis detail: Pain in joint of right knee Pain of le ft knee joint 3982870700 70825 M25.562 Additional diagnosis detail: Pain in joint of left knee Osteoarthr itis of right knee joint 7948293058 95215 M17.11 Osteoarthr itis of left knee joint 0998366049 80546 M17.12 Health Concerns Section Related Observation LastModified by Organization Detai ls LastModified Time None Recorded Concern Status LastModified by Organization Details LastModified Time None Recorded Advance Directives Directive None Recorded Payers Encounter Date Sequence Insurance Name Policy Number Policy Harman Covered Member ID Harman Member ID Guarantor Name 11/25/2022 2 [facility] 1 (MEDICARE SUPPLEMENT) [id number] Destiny A Papirio [id number] Destiny Papirio 11/25/2022 1 [place] [employer] Destiny A Papirio [id number] Destiny Papirio 02/23/2023 2 [facility] 1 (MEDICARE SUPPLEMENT) [id number] 1 Destiny A Papirio [id number] Destiny Papirio 02/23/2023 1 [place] Destiny A Papirio [id number] Destiny Papirio 06/08/2023 2 [facility] 1 (MEDICARE SUPPLEMENT) [id number] Destiny A Papirio [id number] Destiny Papirio 06/08/2023 1 [place] [employer] Destiny A Papirio [id number] Destiny Papirio 09/14/2023 2 [facility] 1 (MEDICARE SUPPLEMENT) [id number] 1 Destiny A Papirio [id number] Destiny Papirio 09/14/2023 1 [place] Destiny A Papirio [id number] Destiny Papirio 12/28/2023 2 [facility] 1 (MEDICARE SUPPLEMENT) [id number] 1 Destiny A Papirio [id number] Destiny Papirio 12/28/2023 1 [place] [employer] Destiny A Papirio [id number] Destiny Lundy Notes Date Note Type Note Provider Name and Address Organization Details Recorded Time 11/25/2022 text/html This is a 77-year-old female last seen by Dr. Martin on 08/16/2022. Patient had bilateral cortisone injections at that time. She states this gave her good relief however they have since worn off. She is not interested in surgery. She states her pain is medial nature that is worse with walking. No other complaints at this time. MICHAEL AUGUSTIN PA-C 299 [facility],[address], [place], [address], [place] [facility] 11/25/2022 10:36:26 02/23/2023 text/html This is a 77-year-old female last seen on 11/25/2022 for which she had cortisone injections which gave her good satisfactory relief. She states this gives her approximately 3 months of relief however her symptoms have started to return of medial joint space pain. She takes dnav-vrw-cjtwslh pain medication which gives her some relief. Denies swelling denies fevers or chills here for evaluation and treatment. MICHAEL AUGUSTIN PA-C 299 [facility],[address] [facility], [place], [address], [facility] - [facility] 02/24/2023 08:02:14 06/08/2023 text/html This is a 77-year-old female last seen on 02/23/2023 for which she had cortisone injections which gave her good satisfactory relief. She states this gives her approximately 3 months of relief however her symptoms have started to return of medial/generalized bilateral joint space pain. She takes xnvs-jwd-zgxrbyu pain medication which gives her some relief. Denies swelling denies fevers or chills here for evaluation and treatment. MICHAEL AUGUSTIN PA-C [address] [facility],[address], [place], [address], [facility] - [facility], [facility] 06/08/2023 13:30:46 09/14/2023 text/html This is a 77-year-old female last seen on 06/08/2023 for which she had cortisone injections which gave her good satisfactory relief. She states this gives her approximately 3 months of relief however her symptoms have started to return of medial/generalized bilateral joint space pain. She takes qrmk-ogj-pcvscow pain medication which gives her some relief. Denies swelling denies fevers or chills here for evaluation and treatment. MICHAEL AUGUSTIN PA-C 299 [facility],[address] [address], [place], [address], [place] [facility] 09/15/2023 13:26:31 12/28/2023 text/html 78-year-old fema quinn presents with bilateral knee pain. She is known to have advanced osteoarthritis of the knees. She reports that her cortisone injection 3 months ago gave her significant relief of her pain but only lasted for 2 to 2-1/2 months. She has been using Tylenol as well as CBD products topically and Voltaren gel. These I will give her some slight reduction of the severity of her pain. She describes for me a constant ache even while at rest which is made worse with standing and walking. She reports that it also become disruptive of sleep. She understands the potential role for joint arthroplasty though she declines this intervention as she has self described vascular issues with her lower extremities and does not consider herself to be a good surgical candidate. MICHAEL ROBERT PA-C 299 [facility] [address], [place], [address], [place] - [facility] 12/28/2023 11:14:25 OBGyn Episode No OBEpisode recorded.
--- OUTSIDE RECORDS SUMMARY | 2024-08-22 12:45 | XMS_ITS | Clinical Summary ---
Author Organization 175 [facility] Address [address] [place] [address] Phone Care Team Providers Care Assistant Associate Full Professor Name Role Phone Geoffrey Velasco MD Primary Care Provider [phone] Allergies Active Allergy Reactions Criticality Noted Date Comments Sulfa (Sulfonamide Antibiotics) Hives 10/2004 Medications levothyroxine (SYNTHROID, LEVOTHROID) 25 mcg tablet Take 1 tablet (25 mcg total) by mouth 1 (one) time each day. 02/27/20 17 Active nortriptyline (PAMELOR) 50 mg capsule Take 1 capsule (50 mg total) by mouth at bedtime. 02/15/20 17 Active atorvastatin (LIPITOR) 80 mg tablet Take 1 tablet (80 mg total) by mouth 1 (one) time each day. 02/27/20 17 Active Pen Needle 31 gauge x 3/16 needle 1 each by Not Applicable route. 01/25/20 18 Active omega-3 acid ethyl esters (LOVAZA) 1 gram capsule Take 1 capsule (1 g total) by mouth 1 (one) time each day. Active clobetasoL (TEMOVATE) 0.05 % gel Apply 1 applicator topically 1 (one) time each day. APPLY TOPICALLY AT BEDTIME DIRECTED BY DR ULLOA - Topical 01/02/20 17 Active magnesium chloride 71.5 mg tablet,delayed release (DR/EC) Take 1 tablet (71.5 mg total) by mouth 1 (one) time each day. Active aspirin 81 mg EC tablet Take 1 tablet (81 mg total) by mouth 1 (one) time each day. 10/26/19 08 Active glucosamine cordova 2KCl-chondroit 500-400 mg tablet Take 1 tablet by mouth 1 (one) time each day. Active ubidecarenone (COENZYME Q10 ORAL) Take by mouth daily. Active B complex tablet Take by mouth. Active docosahexaenoic acid/epa (FISH OIL ORAL) by Does not apply route. Active medical supply, miscellaneous (MISCELLANEOUS MEDICAL SUPPLY [facility]) 8 cm at bedtime. Nasal pillows/ [employer] Active calcium carbonate/vitami n D3 (CALCIUM + D ORAL) 1 cap bid Active vitamin E acetate (VITAMIN E ORAL) daily Active MULTIVITAMIN ORAL None Entered Active fluticasone propion-salmeter oL (ADVAIR HFA) 230-21 mcg/actuation inhaler Inhale 2 puffs by mouth 2 (two) times a day. Rinse mouth with water after use to reduce aftertaste and incidence of candidiasis. Do not swallow. Active albuterol HFA (PROAIR HFA ; PROVENTIL HFA ; VENTOLIN HFA) 90 mcg/actuation inhalerIndicatio ns:Obstructive sleep apnea (adult) (pediatric),Mild intermittent asthma, uncomplicated INHALE 2 PUFFS BY MOUTH EVERY 4 HOURS NEEDED FOR WHEEZE OR FOR SHORTNESS OF BREATH 8.5 each 3 06/05/20 24 Active aMILoride (MIDAMOR) 5 mg tablet Take 0.5 tablets (2.5 mg total) by mouth 1 (one) time each day. 45 each 06/19/20 24 032 Active Ozempic 0.25 mg or 0.5 mg (2 mg/3 mL) injection penIndications:T ype 2 diabetes mellitus without complication, without long-term current use of insulin ([facility]) Inject 0.5 mg under the skin every 7 (seven) days. 9 mL 1 07/02/20 24 Active mirtazapine (REMERON) 7.5 mg tabletIndication s:Psychophysiolo gic insomnia TAKE 1 TABLET BY MOUTH EVERYDAY AT BEDTIME 90 tablet 1 07/22/19 25 Active lisinopriL (PRINIVIL,ZESTRI L) 20 mg tabletIndication s:Essential (primary) hypertension,Chr onic kidney disease, stage 3 unspecified (CMS/HCC) TAKE 1 TABLET BY MOUTH EVERY DAY 90 tablet 1 08/16/19 25 Active lisinopriL (PRINIVIL,ZESTRI L) 20 mg tablet Take 1 tablet (20 mg total) by mouth 1 (one) time each day. 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 She is on aspirin and statin therapy. If his dizziness worsens, she will require surgery. Dyspnea 06/27/2023 Overview (09/13/2023): Last Assessment & Plan: . Echocardiogram demonstrated normal biventricular size and systolic function without obvious valvular abnormalities. She has multiple risk factor for coronary artery disease. I will schedule a pharmacological nuclear stress test for further evaluation. She was a former smoker and quit many years ago. I will suggest her to have a PFT and possible chest CT. Obstructive sleep apnea syndrome 09/25/2020 Type 2 diabetes mellitus 07/09/2020 DM (diabetes mellitus), type 2 with renal compli cations 07/09/2020 Assessment & Plan (05/28/2024 6:06 PM EST): Diabetic diet discussed. Will monitor A1c. Continue current regimen of Ozempic. Patient is on an RADHA inhibitor for microalbuminuria. Orders: Hemoglobin A1c; Future Hallux valgus of left foot 12/03/2019 Osteoarthritis of knee 07/12/2017 Overview (04/16/2024): DJD (degenerative joint disease) of knee Bilateral Supartz injections by Dr Martin 06/27/17 Bilateral Supartz injections by Dr Martin 06/27/17 Acquired hypothyroidism 12/01/2016 Assessment & Plan (05/28/2024 6:06 PM EST): Continue regimen of levothyroxine. CKD (chronic kidney disease) stage 3, GFR 30-59 ml/min 02/25/2014 Overview (09/13/2023): Assessment & Plan (05/28/2024 6:06 PM EST): She does follow-up nephrology. Patient avoid NSAIDs. Will monitor creatinine routinely. IBS (irritable bowel syndrome) 06/15/2011 Overview (09/13/2023): Alt c/d, onset age 22. Alt c/d, onset age 22. Chronic headache disorder 06/15/2011 Lichen planus 12/24/2008 Overview (04/16/2024): left tongue Hypertensive retinopathy 12/24/2008 Overview (04/16/2024): stage II Severe obesity 11/28/2007 Overview (04/16/2024): (BMI 35.0-39.9) with comorbidity (HCC) Hypertension 04/12/2005 Overview (09/13/2023): Last Assessment & Plan: Control reasonably well. Assessment & Plan (05/28/2024 6:06 PM EST): Patient follow sodium diet. Continue current regimen of amiloride, lisinopril. Hypersomnia with sleep apnea 04/12/2005 Overview (04/16/2024): HYPERSOMNIA W SLEEP APNEA NOS IMO update IMO update Hyperlipidemia 04/12/2005 Overview (09/13/2023): Last Assessment & Plan: LDL at target. Triglycerides slightly elevated. Continue current regimen. Assessment & Plan (05/28/2024 6:06 PM EST): Follow low-cholesterol diet. Continue atorvastatin. Encounters Date Type Department Care Team Description [facility] [address] [phone] [place] DME request 08/09/2024 11:30 AM EST [facility] [address] [phone] Mignon Denis NP Obstructive sleep apnea syndrome (Primary Dx); Insomnia, unspecified type; Moderate persistent reactive airway disease without complication; Pneumonia due to infectious organism, unspecified laterality, unspecified part of lung 05/28/2024 2:45 PM EST Office Visit Internal Medicine - [facility] [address] [place] [phone] Geoffrey Velasco MD Steal syndrome, subclavian (Primary Dx); Type 2 diabetes mellitus with diabetic microalbuminuria, without long-term current use of insulin (CMS/HCC); Hypertension, unspecified type; Hyperlipidemia, unspecified hyperlipidemia type; Acquired hypothyroidism; Stage 3 chronic kidney disease, unspecified whether stage 3a or 3b CKD (CMS/HCC) from Last 3 Months Immunizations Name Administration Dates Next Due H1N1 Inj Preservative Free 06/26/2009 Hepatitis A Adult (Havrix; V aqta) 19yo and older 09/18/2001 Hepatitis A Pediatric (Havri x; Vaqta) 12mo to less than 19yo 09/03/2008 Hepatitis B (Tizrmto-K-Jrbue , Recombivax HB-Adult) 19yo and older 09/09/2008,10/13/2001,09/18/2001 IPV Inactivated polio (Ipol) 6wks and older 09/03/2008,09/03/2008 Influenza Quadravalent, 0.5m l (Fluad) 65yo and older 03/30/2023,04/04/2021 Influenza Quadravalent, MDCK , 0.5ml, with preservative (Flucelvax) 6mo and older 05/24/2017 Influenza trivalent, 0.5mL ( Fluzone High-dose) 65yo and older 03/07/2024,03/30/2023,05/17/2022,02/21,03/30/2019,03/31/2018 Influenza trivalent, with pr eservative (Fluzone; Afluria) 6mo and older 05/10/2016,04/30/2015,04/08/2014,03/13,06/08/2012,05/27/2011,05/10/2010 ,06/26/2009,06/03/2008,06/21/2007 Moderna (age 6mo-5yr) Bivale nt Additional Dose, COVID-19 05/17/2022 Moderna SARS-CoV-2 COVID-19, mRNA, LNP-S, preservative free 03/30/2023,12/02/2021,02/21/2021,09/26,08/29/2020 Pfizer (ages 12 & older) Biv alent, COVID-19 12/02/2022 Pfizer SARS-CoV-2 COVID-19, mRNA, LNP-S, preservative free 03/07/2024 Pneumococcal conjugate 13 va lent (Prevnar 13, PCV13) 2mo and older 10/06/2015 Pneumococcal polysaccharide 23 valent (Pneumovax 23) 2yo and older 03/13/2013 Td Tetanus diptheria (Tdvax) 7yo and older 11/02/2018,07/24/1998 Tdap Tetanus diptheria acell ular pertussis (Boostrix; Adacel) 7yo and older 09/09/2008 Typhoid VICPS (Typhim Vi) 2y o and older 09/03/2008 Zoster Live 11/25/2011 Zoster recombinant (Shingrix ) 19yo and older 01/24/2020,09/20/2019 Surgical History Surgery Date Site/Laterality Comments APPENDECTOMY PROCEDURE: HISTORICAL APPENDECTOMY TONSILLECTOMY PROCEDURE: HISTORICAL TONSILLECTOMY OTHER SURGICAL HISTORY left lateral 10/16 PROCEDURE: IL BIOPSY TONGUE ANTERIOR TWO-THIRDS; COMMENT: Leukoplakia, 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 Also sees Dr. Ulloa ANKLE FRACTURE SURGERY 05/03/2009 Left PROCEDURE: IL OPEN TREATMENT MEDIAL MALLEOLUS FRACTURE; COMMENT: trimalleolar ORIF TUBAL LIGATION PROCEDURE: HISTORICAL TUBAL LIGATION COLONOSCOPY 11/05/2003 PROCEDURE: HISTORICAL COLONOSCOPY; COMMENT: good for 10 yrs. OTHER SURGICAL HISTORY 01/28/2014 PROCEDURE: COLON CA SCRN NOT HI RSK IND; COMMENT: tics; completed to hepatic flexure; would not repeat OTHER SURGICAL HISTORY 01/09/2024 PROCEDURE: IL SLCTV CATH CAROTID/INNOM ART ANGIO INTRCRANL ART OTHER SURGICAL HISTORY 01/09/2024 Bilateral PROCEDURE: IL SLCTV CATH SUBCLAVIAN ART ANGIO VERTEBRAL ARTERY Medical History Medical History Date Comments Hypersomnia with sleep apnea , unspecified 04/12/2005 DX:Hypersomnia with sleep ap lola, unspecified Symptomatic menopausal or fe male climacteric states 04/12/2005 DX:Symptomatic menopausal or female climacteric states Mixed hyperlipidemia 04/12/2005 DX:Mixed hy perlipidemia Foot fracture 11/13/07 DX:Foot fracture ; COMMENT: right 5th metatarsal Obesity 11/28/2007 DX:Obesity Essential hypertension, benign 04/12/2005 D X:Essential hypertension, benign Fracture of ankle, trimalleo lar, left, closed 11/12/2010 DX:Fracture of ankle, trimal leolar, left, closed IBS (irritable bowel syndrome) 06/15/2011 D X:IBS (irritable bowel syndrome) Chronic headache disorder 06/15/2011 DX:Chr onic headache disorder Chest pain, atypical 06/15/2011 DX:Chest pa in, atypical Diet-controlled type 2 diabe gayla mellitus ([facility]/HCC) 10/07/2015 DX:Diet-controlled type 2 di abetes mellitus (HCC) Acquired hypothyroidism 12/01/2016 DX:Acqui red hypothyroidism Severe obesity (BMI 35.0-39. 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, subclavian 07/27/2023 DX:St eal syndrome, subclavian Family History Medical History Relation Name Comments Liver cancer Brother 1 Hypertension Brother 2 Stroke Brother 2 Diabetes Father late Hypertension Father Arthritis Mother Coronary artery disease Mother Hypertension Mother Leukemia Mother Colon cancer Paternal Grandfather Heart attack Sister 1 Arthritis Sister 2 Hypertension Sister 2 Heart attack Sister 3 No Known Problems Son Breast cancer Neg Hx Ovarian cancer Neg Hx Relation Name Status Comments Brother 1 (Age 40's) Pancreat ic cancer Brother 2 Alive HTN, stroke age 39 Father Diabetes, HTN, Mother (Age 53) aggressive leukemia Paternal Grandfather Sister 1 (Age 49) unknown, m assive [place]?, niece wouldn't share autopsy results Sister 2 Alive Lupus & HTN Sister 3 (Age 45) cerebral h emorrhage Sister 4 Alive Son Alive Social History Tobacco Use Types Packs/Day Years Used Date Smoking Tobacco: Former Cigarettes 1.5 28.7 0 07/10/1965 - 04/09/1994 Smokeless Tobacco: Never Tobacco Cessation:Counseling Given: Not Answered Alcohol Use Standard Drinks/Week Comments Yes 0 [...] care for your loved ones. For example, children's service worker or elderly care for an older adult? [...] on file Sexual Orientation Not on file Obstetrics History Last Filed Vital Signs Vital Sign Reading Time Taken Comments Blood Pressure 132/70 08/09/2024 11:22 AM EST Pulse 102 08/09/2024 11:22 AM EST Temperature 36.4 ??C (97.6 ??F) 08/09/2024 11:[address] Respiratory Rate 16 08/09/2024 11:22 AM EST Oxygen Saturation 98% 08/09/2024 11:22 AM EST Inhaled Oxygen Concentration - - Weight 102 kg (225 lb 12.8 oz) 08/09/2024 11:22 AM EST Height 170.2 cm (5' 7 ) 08/09/2024 11:22 AM EST Body Mass Index 35.37 08/09/2024 11:22 AM EST Plan of Treatment Upcoming Encounters Date Type Department Care Team (Late st Contact Info) Description 10/04/2024 3:00 PM EDT Office Visit Internal Medicine - [facility] [address] [place] [phone] Tami Young, GRAEME [address] [place] [address] 12/12/2024 1:00 PM EDT Office Visit Pulmonolgy - [place] 175 [facility] [address] [place] [phone] Mignon Denis NP 175 [facility] [address] [place] [address] 12/23/2024 12:00 PM EDT Ancillary Procedure [facility] [address] [facility] [address] [place] [address] 03/13/2025 11:00 AM EDT Office Visit Vascular Surgery - [place] [address] [facility] [address] [place] [address] Jez Koenig MD [address] [facility] [address] [place] [address] Health Maintenance Due Date Last Done Comments IPV Vaccines (2 of 3 - Adult catch-up series) 10/01/2008 09/03/2008, 09/03/2008 Falls Risk Assessment 11/16/2023 11/15/2022 Osteoporosis Screening (Bone Density Screening) 11/27/2023 11/26/2018 COVID-19 Vaccine (3 - Pfizer risk series) 04/04/2024 03/07/2024, 03/30/2023, 12/02/2022, Additional history exists Medicare Annual Wellness Visit 05/16/2024 05/16/2023 Diabetes: Annual Foot Exam 05/17/202405/17, 05/17/2022, 05/17/2022, Additional history exists Diabetes: Annual Retina Eye Exam 10/08/2024 10/09/2023, 11/08/2022 Diabetes: Blood Sugar Control Test (HGBA1C) 11/25/2024 05/28/2024, 01/25/2024, 01/25/2024, Additional history exists Diabetes: Annual Urine Albumin-Creatinine Ratio (uACR) 01/24/2025 01/25/2024, 11/10/2022 Diabetes: Annual GFR (Glomerular Filtration Rate) 02/05/2025 02/06/2024, 02/06/2024, 01/25/2024 Hypertension/CHF/CAD Annual BMP Blood Test 02/05/2025 02/06/2024, 02/06/2024, 01/25/2024, Additional history exists Depression Screening 05/27/2025 05/27/2024, 05/16/2023, 05/16/2023 Social Influencers of Health Screening 05/27/2025 05/27/2024 DTaP,Tdap,and Td Vaccines (4 - Td or Tdap) 11/02/2028 11/02/2018, 09/09/2008, 07/24/1998 Cholesterol Screening (Lipid Panel) 01/24/2029 01/25/2024, 01/25/2024, 11/10/2022 Colorectal Cancer Screening: Colonoscopy Discontinued 11/05/2003 Hepatitis A Vaccines Aged Out 09/03/2008, 09/19/19 02 No longer eligible based on patient's age to complete this topic Hepatitis B Vaccines Completed 09/09/2008, 10/13/2001, 09/18/2001 Pneumococcal Vaccine: 50+ Years Completed 10/06/2015, 03/13/2013 Zoster Vaccines Completed 01/24/2020, 09/07, 11/25/2011 Breast Cancer Screening Discontinued 11/19/19, 06/12/2020, 01/28/2019, Additional history exists Hepatitis C Screening Completed 06/09/2022, 014 Influenza Vaccine Completed 03/07/2024, , 03/30/2023, Additional history exists RSV Immunization Patients 60+ Years Old Completed 05/09/2024 HIB Vaccines Aged Out No longer eligi ble based on patient's age to complete this topic HPV Vaccines Aged Out No longer eligi ble based on patient's age to complete this topic MMR Vaccines Aged Out No longer eligi ble based on patient's age to complete this topic Meningococcal ACWY Vaccine Aged Out N o longer eligible based on patient's age to complete this topic Meningococcal B Vacine Aged Out No lo nger eligible based on patient's age to complete this topic RSV Immunization Patients Under 20 months Aged Out No longer eligible based on patient's age to complete this topic Varicella Vaccines Aged Out No longer eligible based on patient's age to complete this topic Procedures Procedure Name Priority Date/Time Associated Diagnosis Comments HEMOGLOBIN A1C Routine 05/28/2024 4:17 PM EST Type 2 diabetes mellitus with diabetic microalbuminuria, without long-term current use of insulin ([facility]) ANNUAL BMP BLOOD TEST Routine 02/06/2024 URINE ALBUMIN CREATININE RATIO Routine 01/25/2024 LIPID PANEL Routine 01/25/2024 DIABETES EYE EXAM Routine 10/09/2023 DEPRESSION SCREENING Routine 05/16/2023 HEPATITIS C SCREENING Routine 06/09/2022 DEBORAH SCREENING DIGITAL Routine 11/18/2021 6:52 PM EDT Encounter for screening mammogram for malignant neoplasm of breast DXA BONE DENSITY STUDY 1+ SITS AXIAL SKEL Routine 11/26/2018 3:53 PM EDT Asymptomatic menopausal state from Last 3 Months or Most Recently Relevant to Health Maintenance Results * Hemoglobin A1c (05/28/2024 4:17 PM EST) Hemoglobin A1C 5.8 <6.5 % LAB CHEMISTRY METHOD 05/29/2024 12:59 PM EST [facility] Mean Bld Glu Estim. 120 mg/dL LAB CHEMISTRY METHOD 05/29/2024 12:59 PM EST [facility] Blood Venous blood specimen / Unknown Venipuncture / Unknown 05/28/2024 4:17 PM EST 05/28/2024 4:17 PM EST Result [facility] Geoffrey Velasco MD LAB BLOOD ORDERABLES Kyara l Result [facility] [address] [place] [address], [place] [phone] * Annual BMP Blood Test (02/06/2024) [facility] Annual BMP Blood Test Abstracted [facility] Provider HEALTH MAINTENANCE Final Result * Urine Albumin Creatinine Ratio (01/25/2024) [facility] Urine Albumin Creatinine Ratio Abstracted Result [facility] Provider HEALTH MAINTENANCE Final Result * (ABNORMAL) Lipid panel (01/25/2024) [facility] LDL/HDL Ratio 3 0 - 4 Triglycerides 207(A) 0 - 150 mg/dL Cholesterol 167 0 - 200 mg/dL HDL 61 >=40 mg/dL LDL Cholesterol 65 0 - 100 mg/dL Blood Venous blood specimen / Unknown Result [facility] Provider LAB BLOOD ORDERABLES Kyara l Result * Diabetes Eye Exam (10/09/2023) [facility] Diabetes: Annual Retina Eye Exam Abstracted Historical Provider HEALTH MAINTENANCE Final Result * Depression Screening (05/16/2023) [facility] Depression Screening Abstracted Historical Provider HEALTH MAINTENANCE Final Result * Hepatitis C Screening (06/09/2022) [facility] Hepatitis C Screening Abstracted Result [facility] Provider HEALTH MAINTENANCE Final Result * DEBORAH SCREENING DIGITAL (11/18/2021 6:52 PM EDT) Anatomical Region Laterality Modality Mammography 11/18/2021 2:08 PM EDT Narrative 11/18/2021 6:52 PM EDT [facility] Diagnostic Imaging Department [address] [place] [address] Patient: ??LIUDMILA LUNDYRA Pruett ?/Age/Sex: 1945 76 - F Unit#: ??[id number] ? Location/Status: ??SPDIMAM/REG CLI ? Mnemonic/Ordering Site: ??DIGSC/SPMAM Ordering Physician: ??SHEILA AGUILAR NP [facility] Screening Digital - 11/18/21 - 1445 History: Bilateral breast cancer screening. Technique: Digital mammography. Conventional CC and MLO projections with tomosynthesis MLO views and computer aided detection. Comparison: 06/12/2020 through 01/04/2017. Findings: ??Breast tissue consists of a combination of fatty and fibroglandular elements (category b density) (as calculated by [employer] Vol[employer] software). There are benign calcifications and stable asymmetries bilaterally. ??No suspicious group of calcification, architectural distortion, suspicious mass or suspicious asymmetry. Impression: ??No evidence of malignancy. BIRADS Category 2, benign findings, 3342F [address]5488, [id number] Note: Patient information entered into a reminder system with a target due date for the next mammogram: ??CPT II 7025F Dictating Physician: ??BIJAN YOU MD Electronically Signed by: ??BIJAN YOU MD Dic Date/Time: ??11/18/211849 Sign date/Time: ??11/18/211851 Procedure Note Bijan You MD - 06/29/2022 [facility] Diagnostic Imaging Department [address] [place] [address] Patient: RUDOLPHLATONIADESTINYRA Seble ChaseB./Age/Sex: 1945 - 76 - F Unit#: [id number] [facility] CLI Mnemonic/Ordering Site: [facility] Ordering Physician: SHEILA AGUILAR NEONATAL DOCTOR Deborah Screening Digital - 11/18/21 - 1445 History: Bilateral breast cancer screening. Technique: Digital mammography. Conventional CC and MLO projections with tomosynthesis MLO views and computer aided detection. Comparison: 06/12/2020 through 01/04/2017. Findings: Breast tissue consists of a combination of fatty andfibroglandular elements (category b density) (as calculated by [employer] software).There are benign calcifications and stable asymmetries bilaterally. Nosuspicious group of calcification, architectural distortion, suspicious mass orsuspicious asymmetry. Impression: No evidence of malignancy. BIRADS Category 2, benign findings, 3342F 12711, [id number] Note: Patient information entered into a reminder system with a target duedate for the next mammogram: CPT II 7025F Dictating Physician: BIJAN YOU MD Electronically Signed by: BIJAN YOU MD Dic Date/Time: 11/18/211849 Sign date/Time: 11/18/211851 us Sheila Aguilar NEONATAL DOCTOR IMG BI PROCEDURES Final Result * DXA BONE DENSITY STUDY 1+ SITS AXIAL SKEL (11/26/2018 3:53 PM EDT) Anatomical Region Laterality Modality Bone Densitometr y 11/02/2018 3:06 PM EDT Narrative 11/26/2018 4:40 PM EDT BONE DENSITY ? Lumbar Spine T-score is +2.2 ?? (SD relative to 20-29 y/o adult) Z-score is +4.3 ??(SD relative to age matched peers) This is normal by criteria defined by the WHO. Left Hip T-score is -2.0 Z-score is -0.2 This is consistent with osteopenia by criteria defined by the WHO. Comparison exam(s): significant increase in bone density of ??hip and lumbar spine when compared to most recent bone density examination ?? Confidence level is +/-95%. Impression: Based on the World Health Organization criteria, Destiny Lundy should be classified as having osteopenia. This patient has a 11% risk of major osteoporotic fracture and a 2% risk of hip fracture over the next 10 years. (World Health Organization Fracture Risk Assessment) [facility] Department of Internal Medicine recommends using National Osteoporosis Foundation (NOF) guidelines in treatment decisions related to osteoporosis. NOF guidelines suggest considering treatment for postmenopausal women and men aged 50 or older presenting with the following: History of hip or vertebral fracture. T-score less than or equal to -2.5 (DXA) at the femoral neck, total hip, or spine, after appropriate evaluation to exclude secondary causes. Low bone mass (T-score between -1.0 and -2.5 at the femoral neck or spine) AND a 10-year probability of a hip fracture greater than or equal to 3% OR a 10-year probability of a major osteoporosis-related fracture greater than or equal to 20% based on the [place]-adapted WHO algorithm Please note that all treatment decisions require clinical judgment and consideration of individual patient factors, including patient preferences, co-morbidities, previous drug use, risk factors not captured in the FRAX model (e.g., frailty, falls, vitamin D deficiency, increased bone turnover, interval significant decline in bone density) and possible under- or over-estimation of fracture risk by FRAX. Procedure Note Nicole Golden MD - 06/28/2022 BONE DENSITY Lumbar Spine T-score is +2.2 (SD relative to 20-29 y/o adult) Z-score is +4.3 (SD relative to age matched peers) This is normal by criteria defined by the WHO. Left Hip T-score is -2.0 Z-score is -0.2 This is consistent with osteopenia by criteria defined by the WHO. Comparison exam(s): significant increase in bone density of hip andlumbar spine when compared to most recent bone density examination Confidence level is +/-95%. Impression: Based on the World Health Organization criteria, Destiny Lundy shouldbe classified as having osteopenia. This patient has a 11% risk of majorosteoporotic fracture and a 2% risk of hip fracture over the next 10years. (World Health Organization Fracture Risk Assessment) [facility] Department of Internal Medicine recommendsusing National Osteoporosis Foundation (NOF) guidelines in treatmentdecisions related to osteoporosis. NOF guidelines suggest consideringtreatment for postmenopausal women and men aged 50 or older presentingwith the following: History of hip or vertebral fracture. T-score less than or equal to -2.5 (DXA) at the femoral neck, total hip,or spine, after appropriate evaluation to exclude secondary causes. Low bone mass (T-score between -1.0 and -2.5 at the femoral neck or spine)AND a 10-year probability of a hip fracture greater than or equal to 3% ORa 10-year probability of a major osteoporosis-related fracture greaterthan or equal to 20% based on the [place]-adapted WHO algorithm Please note that all treatment decisions require clinical judgment andconsideration of individual patient factors, including patientpreferences, co-morbidities, previous drug use, risk factors not capturedin the FRAX model (e.g., frailty, falls, vitamin D deficiency, increasedbone turnover, interval significant decline in bone density) and possibleunder- or over-estimation of fracture risk by FRAX. Vy France MD IMG DXA PROCEDURES Final Re sult from Last 3 Months or Most Recently Relevant to Health Maintenance Insurance MEDICARE [facility] [address] [place] [address] Care Teams Assistant Associate Full Professor Relationship Specialty Start Date End Date Geoffrey Velasco MD [address] [place] [id number] PCP - General Internal Medicine 04/21/20
--- OUTSIDE RECORDS SUMMARY | 2024-08-22 12:45 | XMS_ITS ---
Author Name [facility] Organization Unknown History of Medication Use Medication Directions Dispensed Refills Start Date End Date Stat us Ozempic 0.25 mg or 0.5 mg (2 mg/3 mL) subcutaneous pen injector INJECT 0.25 MG INTO THE SKIN EVERY 7 DAYS FOR 14 DAYS, THEN 0.5 MG EVERY 7 DAYS FOR 90 DAYS. active amiloride 5 mg tablet TAKE 1 TABLET BY MOUTH EVERY DAY active prednisolone acetate 1 % eye drops,suspension PLACE 1 DROP BOTH EYES 4 TIMES A DAY DIRECTED FOR 3 WEEKS 3 completed lidocaine (PF) 10 mg/mL (1 %) injection solution Take 2 mL by injection route. 11/25/2022 3 active lidocaine (PF) 100 mg/5 mL (2 %) injection syringe Take 4 mL by injection route. 12/28/2023 active Prolensa 0.07 % eye drops INSTILL 1 DROP IN OPERATED EYE AT BEDTIME FOR 3 WEEKS 3 completed cyclobenzaprine 5 mg tablet TAKE 1 TABLET BY MOUTH 3 TIMES DAILY NEEDED FOR MUSCLE SPASMS FOR UP TO 5 DAYS *NOT COVD* 3 completed Allergies Allergen Reaction Severity Comment Documented Date Source Statu s SULFA (SULFONAMIDE ANTIBIOTICS) ENS_AONECT Problems Problem Status Onset Date Problem Type Date of Resoluti on Source Osteoarthritis of right knee joint active 2022-11-25 ProblemAct ENS_[facility] Osteoarthritis of left knee joint active 2022-11-25 ProblemAct E[facility] Pain of bilateral knee joints active 2023-02-24 ProblemAct ENS_[facility]
--- OUTSIDE RECORDS SUMMARY | 2024-08-22 12:45 | XMS_ITS | Encounter Summary ---
Author Organization [facility] Address [address] [place] [address] Care Team Providers Care Food Mixer Repairer Name Role Phone Geoffrey Velasco MD Primary Care Provider [phone] Reason for Visit * Reason Comments Asthma Sleep Apnea Encounter Details Date Type Department Care Team ([facility] st Contact Info) Description 08/09/2024 11:30 AM EST Office Visit Pulmonolgy - [place] [address] [place] [address] Mignon Denis NP [address] [place] [address] Obstructive sleep apnea syndrome (Primary Dx); Insomnia, unspecified type; Moderate persistent reactive airway disease without complication; Pneumonia due to infectious organism, unspecified laterality, unspecified part of lung Social History Tobacco Use Types Packs/Day Years [...] care for your loved ones. For example, home child care provider or elderly care for an older adult? [...] on file documented as of this encounter Last Filed Vital Signs Vital Sign Reading [...] Mass Index 35.37 08/09/2024 11:22 AM EST documented in this encounter Progress Notes * Mignon Denis, GRAEME - 08/09/2024 11:30 AM EST ADULT PULMONARY CONSULT CHIEF COMPLAINT or REASON FOR CONSULTATION: Asthma and Sleep Apnea IDENTIFIER Destiny Lundy is a 78 y.o. years old, female History of Present Illness The patient is a 78-year-old female who comes for reevaluation of asthma and sleep apnea. Her last visit was on 05/09/2024, and she reports no hospitalizations but had prednisone/antibiotic treatment. She began experiencing respiratory distress following the holiday season, which necessitated a medical consultation on 07/15/2024 at [facility]. She was diagnosed with pneumonia and bronchitis, severe enough to cause dyspnea during speech. She was advised to rest and avoid talking until her breathing improved. She was prescribed a course of prednisone and doxycycline, which she completed. She reports animprovement in her condition, with the resolution of her cough towards the end of the treatment. However, she continues to experience fatigue. Her cough has transitioned from productive, with yellow-greenish phlegm, to a dry cough. She reports occasional mild wheezing but no chest tightness. She exp eriences shortness of breath during physical exertion, such as walking, but notes a gradual improvement. She can ascend one flight of stairs but requires a minute or two to recover her breath. She iscurrently not on any allergy medications. She had previously taken Flonase daily for unspecified allergies but discontinued it due to nasal and sinus irritation. She reports no change in her symptomssince stopping Flonase. She experiences postnasal drip and uses pillows for support. She also reports frequent throat clearing and increased coughing. She underwent a chest x-ray at the urgent care center but has not had a follow-up x-ray since. Her current medication regimen includes Advair 230/21, administered as 2 puffs in the morning and 2 puffs at night, and albuterol, used sparingly once ortwice a week. ACT is 18 today due to [place]. She has received her CPAP supplies and uses CPAP daily. She reports that the CPAP machine has improved her energy levels and sleep quality but still have fatigue. She does not snore unless she is extremely fatigued. She did not receive the overnight oxymetry that was supposed to be sent to her. She continues to experience intermittent insomnia. She takes amitriptyline an hour before bedtime and mirtazapine at bedtime. She reports that these medications help her sleep well for 3 days, after which she experiences disrupted sleep for the next 2 or 3 days. She often wakes up hourly, either to use the bathroom or check the time. She sometimes falls asleep immediately but wakes up after an hour and a half, and then struggles to fall back asleep for the next 2 or 3 hours. ALLERGIES: Allergies Allergen Reactions Sulfa (Sulfonamide Antibiotics) Hives ACTIVE MEDICATIONS: Outpatient Medications Marked as Taking for the 08/09/24 encounter (Office Visit) with Mignon Denis NP Medication Sig Dispense Refill albuterol HFA (PROAIR HFA ; PROVENTIL HFA ; VENTOLIN HFA) 90 mcg/actuation inhaler INHALE 2 PUFFS BY MOUTH EVERY 4 HOURS NEEDED FOR WHEEZE OR FOR SHORTNESS OF BREATH 8.5 each 3 aMILoride (MIDAMOR) 5 mg tablet Take 0.5 tablets (2.5 mg total) by mouth 1 (one) time each day. 45 each 0 aspirin 81 mg EC tablet Take 1 tablet (81 mg total) by mouth 1 (one) time each day. atorvastatin (LIPITOR) 80 mg tablet Take 1 tablet (80 mg total) by mouth 1 (one) time each day. clobetasoL (TEMOVATE) 0.05 % gel Apply 1 applicator topically 1 (one) time each day. APPLY TOPICALLY AT BEDTIME DIRECTED BY DR CORNELL - Topical docosahexaenoic acid/epa (FISH OIL ORAL) by Does not apply route. fluticasone propion-salmeteroL (ADVAIR HFA) 230-21 mcg/actuation inhaler Inhale 2 puffs by mouth 2 (two) times a day. Rinse mouth with water after use to reduce aftertaste and incidence of candidiasis. Do not swallow. glucosamine cordova 2KCl-chondroit 500-400 mg tablet Take 1 tablet by mouth 1 (one) time each day. levothyroxine (SYNTHROID, LEVOTHROID) 25 mcg tablet Take 1 tablet (25 mcg total) by mouth 1 (one) time each day. lisinopriL (PRINIVIL,ZESTRIL) 20 mg tablet Take 1 tablet (20 mg total) by mouth 1 (one) time each day. magnesium chloride 71.5 mg tablet,delayed release (DR/EC) Take 1 tablet (71.5 mg total) by mouth 1 (one) time each day. medical supply, miscellaneous (MISCELLANEOUS MEDICAL SUPPLY MISC) 8 cm at bedtime. Nasal pillows/ [employer] mirtazapine (REMERON) 7.5 mg tablet TAKE 1 TABLET BY MOUTH EVERYDAY AT BEDTIME 90 tablet 1 MULTIVITAMIN ORAL None Entered nortriptyline (PAMELOR) 50 mg capsule Take 1 capsule (50 mg total) by mouth at bedtime. omega-3 acid ethyl esters (LOVAZA) 1 gram capsule Take 1 capsule (1 g total) by mouth 1 (one) time each day. Ozempic 0.25 mg or 0.5 mg (2 mg/3 mL) injection pen Inject 0.5 mg under the skin every 7 (seven) days. 9 mL 1 Pen Needle 31 gauge x 3/16 needle 1 each by Not Applicable route. ubidecarenone (COENZYME Q10 ORAL) Take by mouth daily. vitamin E acetate (VITAMIN E ORAL) daily PROVIDER ATTESTS THAT THE MEDICATION LIST WAS OBTAINED, REVIEWED AND UPDATED. REVIEW OF SYSTEMS: GENERAL: Negative for malaise, significant weight loss and fever,+fatigue HEENT: No changes in hearing or vision, no nose bleeds or other nasal problems NECK: Negative for lumps, goiter, pain and significant neck swelling RESPIRATORY: see HPI CARDIOVASCULAR: No chest pain, leg swelling or palpitations GI: No abdominal discomfort, blood in stools or black stools, or acid reflex : No dysuria, frequency or incontinence or nocturia x 2-3 MUSCULOSKELETAL: No joint pain or swelling, back pain, or muscle pain. SKIN: No lesions, rash or itching PSYCH: +sleep disturbance, but no anxiety, depression, claustrophobia or SI/HI. HEMATOLOGY/LYMPHOLOGY No prolonged bleeding, easy bruisability or swollen nodes ENDOCRINE: No cold or heat intolerance, polyuria, polydipsia or goiter. 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, subclavian 07/27/2023 Dyspnea 06/27/2023 Obstructive sleep apnea syndrome 09/25/2020 Type 2 diabetes mellitus ([facility]) 07/09/2020 DM (diabetes mellitus), type 2 with renal complications ([facility]) 07/09/2020 Hallux valgus of left foot 12/03/2019 Osteoarthritis of knee 07/12/2017 Acquired hypothyroidism 12/01/2016 CKD (chronic kidney disease) stage 3, GFR 30-59 ml/min ([facility]) 02/25/2014 IBS (irritable bowel syndrome) 06/15/2011 Chronic headache disorder 06/15/2011 Lichen planus 12/24/2008 Hypertensive retinopathy 12/24/2008 Severe obesity ([facility]) 11/28/2007 Hypertension 04/12/2005 Hypersomnia with sleep apnea 04/12/2005 Hyperlipidemia 04/12/2005 Past Surgical History: Procedure Laterality Date ANKLE FRACTURE SURGERY Left 05/03/2009 PROCEDURE: MA OPEN TREATMENT MEDIAL MALLEOLUS FRACTURE; COMMENT: trimalleolar ORIF APPENDECTOMY PROCEDURE: HISTORICAL APPENDECTOMY COLONOSCOPY 11/05/2003 PROCEDURE: HISTORICAL COLONOSCOPY; COMMENT: good for 10 yrs. 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 Also sees Dr. Cornell OTHER SURGICAL HISTORY 01/28/2014 PROCEDURE: COLON CA SCRN NOT HI RSK IND; COMMENT: tics; completed to hepatic flexure; would not repeat OTHER SURGICAL HISTORY 01/09/2024 PROCEDURE: MA SLCTV CATH CAROTID/INNOM ART ANGIO INTRCRANL ART OTHER SURGICAL HISTORY Bilateral 01/09/2024 PROCEDURE: MA SLCTV CATH SUBCLAVIAN ART ANGIO VERTEBRAL ARTERY TONSILLECTOMY PROCEDURE: HISTORICAL TONSILLECTOMY TUBAL LIGATION PROCEDURE: HISTORICAL TUBAL LIGATION SOCIAL HISTORY: TOBACCO: Started 18 years old, Quit: 46(1993), around 1.5 pack daily at the most, for at least 30 years. Patient is 47 PPY. ALCOHOL: socially DRUGS: none OCCUPATION OR OCCUPATION EXPOSURE:not that she knows. LUNGS FAMILY HISTORY: IMMUNIZATION: 2021 Influenza Vaccine 2016 Pneumococcal 13 2012 Pneumococcal 23 2021 Moderna x5 PULMONARY HOSPITALIZATION Hx: Never PHYSICAL EXAM: Visit Vitals BP 132/70 Pulse 102 Temp 36.4 ??C (97.6 ??F) (Temporal) Resp 16 Ht 1.702 m (67 ) Wt 102 kg (225 lb 12.8 oz) SpO2 98% BMI 35.37 kg/m?? Smoking Status Former BSA 2.13 m?? Physical Exam General Appearance: Obese(35.37). Alert and in no acute distress. Speaks in full sentences. No stridor. Eyes: Conjunctiva and sclera normal. Nose/Sinus: Nares normal. Septum midline. Mucosa pink with no drainage or sinus tenderness. Mouth/Throat: Moist, pink with excudates or erythema, Mallampati class IV Neck: Neck supple, thyroid symmetric and neck size 15.5 inches. Respiratory: Vesicular sounds adequate bilaterally without wheezes,crackles, rhonchi, rales or rubs. Normal chest expansion and tactile fremitus. Cardiovascular: RRR with normal S1 and S2, no murmurs, no gallops, no JVD appreciated. Gastrointestinal: Bowel sounds normoactive, soft, non-tender. Lymphatic: No cervical and supra-clavicular lymphadenopathy. Extremities: Warm, well perfused without clubbing, cyanosis, or edema. Skin: Warm and dry, no rash. Neurological: Awake, alert and oriented x 3, no focalization. DIAGNOSTIC DATA: Peripheral oxygen saturation or SpO2 on RA today is 98%. SLEEP TESTS: Polysomnogram: Merc 12-03 RDI 49.8, Optimal CPAP 8-> RDI 29 Merc CPAP titration 03-03-06 SE 88% PLMs <5, no time spent supine, Optimal CPAP 5-8, at 5 for 129 min AHI 2.7, at 8for 133 min AHI 0.6 ASSESSMENT: 1. Obstructive sleep apnea syndrome 2. Insomnia, unspecified type 3. Moderate persistent reactive airway disease without complication 4. Pneumonia due to infectious organism, unspecified laterality, unspecified part of lung Assessment & Plan 1. Asthma: Stable. Occasional mild wheezing and dry cough, no significant chest tightness but shortness of breath with exertion. Her oxygen is 98% today on RA which is good - Continue Advair 230/21, 2 puffs twice daily - Continue albuterol as needed - Request chest x-[facility] from [facility] for 07/15/2024 - Obtain CXR in 2 weeks to reevaluate. 2. Sleep Apnea: - Continue using CPAP machine daily - Send oximeter to monitor oxygen levels during sleep - If oxygen levels are low, order sleep study to adjust CPAP settings 3. Insomnia: - Continue nortriptyline and mirtazapine - Monitor sleep patterns 4. Postnasal Drip: - Use nasal saline gel with aloe twice daily - Restart Flonase - Apply nasal saline gel an hour before bedtime and upon waking, followed by Flonase after 30 minutes - The patient was educated about respiratory problems, where assessment and plan was reviewed and explained, some educational material about his pulmonary problems was given with the discharge summary. All questions were answered.The above assessment and plan was discussed with Stephanie Bautista MD ( ). Diagnostic testing results were available for review during the discussion. Based on physical exam, symptomatology, tests requested and baseline pulmonary evaluation/disease, I instructed the patient to follow-up with in 4 months and as needed in the interim if other concerns/worsening symptoms. - Follow up with Geoffrey Velasco MD for the other co-morbidities. Thanks Geoffrey Velasco MD for allowing me to have the opportunity to assist in the care of this patient. I have obtained verbal consent from Destiny Lundy prior to the recording. I have advised Destiny Seble Lundy that she may refuse the recording and require the recording to be turned off at any time during this encounter. documented in this encounter Plan of Treatment Upcoming Encounters Date Type Department Care Team (Late st Contact Info) Description 10/04/2024 3:00 PM EDT [facility] [address] [place] [address] Tami Young, GRAEME [address] [place] [address] 12/12/2024 1:00 PM EDT Office Visit Pulmonolgy - [place] [address] [place] [address] Mignon Denis NP [address] [place] [address] 12/23/2024 12:00 PM EDT Ancillary Procedure [facility] - [facility] [address] [facility] [address] [place] [address] 03/13/2025 11:00 AM EDT Office Visit Vascular Surgery - [place] [address] [place] [address] Jez Koenig MD [address] [place] [address] Scheduled Orders Name Type Priority Associated Diagnoses Orde r Schedule Overnight Pulse Oximetry Respiratory Care Routine Obstructive sleep apnea syndrome Insomnia, unspecified type Expected: 08/09/2024, Expires: 08/09/2025 XR Chest 2 Views Imaging Routine Moderate persistent reactive airway disease without complication Pneumonia due to infectious organism, unspecified laterality, unspecified part of lung Expected: 08/23/2024, Expires: 08/09/2025 documented as of this encounter Visit Diagnoses Diagnosis Obstructive sleep apnea syndrome- Primary Obstructive sleep apnea (adult) (pediatric) Insomnia, unspecified type Moderate persistent reactive airway disease without complication Pneumonia due to infectious organism, unspecified laterality, unspecified part of lung documented in this encounter Additional Health Concerns Assessment Noted Time PHQ-9 Depression Total Score: 0 05/27/20 24 6:16 PM EST documented as of this encounter Care Teams Food Mixer Repairer Relationship Specialty Start Date End Date Geoffrey Velasco MD [address] [place] [place] [id number] PCP - General Internal Medicine 04/21/20 documented as of this encounter
--- NOTE | 2024-08-22 12:51 | MHC.OFFVIS ---
Vital Signs 08/22/24 12:56 Height 5 ft 7 in Weight 231 lb 6 oz BMI 36.2 Intake Visit Reasons: Bilateral knee pains Intake Note: Destiny is a 78 year old female who presents with complaints of bilateral knee pains. She describes her pains as sharp in nature. She has tried Tylenol and anti-inflammatory medicines which gave her minimal relief. She has had cortisone injections in the past which gave her fairly good relief. She wishes to hold off on surgery for as long as possible. Allergies Sulfa (Sulfonamide Antibiotics) Allergy (Verified 08/22/24 12:56) Unknown Medication List - Last Reconciled 08/22/24 by Ever Martin MD acetaminophen ER (Tylenol Arthritis Pain) 1,300 mg PO BID albuterol sulfate 90 mcg/actuation inhalation amiloride mg PO aspirin 81 mg PO BID atorvastatin 80 mg PO DAILY coenzyme Q10 (CoQ-10) 100 mg PO DAILY fluticasone propion-salmeterol 115-21 mcg/actuation (Advair HFA) 2 puffs inhalation BID levothyroxine 25 mcg PO DAILY lisinopril 20 mg PO DAILY magnesium oxide 400 mg PO DAILY mirtazapine 15 mg PO BEDTIME multivitamin 1 tab PO DAILY nortriptyline 50 mg PO BEDTIME PRN omega 4-ufm-pli-fish oil 1,000 (120-180) mg (Fish Oil) 1 cap PO BID pen needle, diabetic (BD Ultra-Fine Mini Pen Needle) As directed semaglutide (Ozempic) mg subcut vitamin B complex 1 tab PO DAILY vitamin E mixed units PO BID [facility] Medical History Type 2 diabetes mellitus with renal complication Obstructive sleep apnea Lichen planus of tongue Irritable bowel syndrome Hypersomnia with sleep apnea Hyperlipidemia Hallux valgus of left foot Chronic kidney disease, stage 3a Chronic headache disorder Acquired hypothyroidism Hypertension Surgical History History of knee surgery History of tubal ligation History of appendectomy History of tonsillectomy Family History Father Diabetes Social History Alcohol intake: current Patient Tobacco Use Status: Former Tobacco user Physical Exam Vital Signs: BMI result Body Mass Index 36.2 Const Other: Well-nourished well-developed very friendly female awake alert and oriented x3 in no acute distress Extrem Other: Bilateral upper extremity examination shows good capillary refill, no skin lesions noted, normal sensation light touch Bilateral knee examination shows minimal effusions, palpable crepitus with range of motion, pain with range of motion, range of motion from -3 degrees to 115 degrees, no instability Office Procedures AMB Joint Injection/Aspiration Joint Injection/Aspiration Primary Site: left knee Prep: site was prepped using aseptic technique Injected: 40 mg of, DepoMedrol and 1% plain lidocaine Procedure: The patient tolerated the procedure well Coding 13781 - Large joint Procedure code (CPT) selection complete AMB Joint Injection/Aspiration Joint Injection/Aspiration Primary Site: right knee Prep: site was prepped using aseptic technique Injected: 40 mg of, DepoMedrol and 1% plain lidocaine Procedure: The patient tolerated the procedure well Coding 06281 - Large joint Procedure code (CPT) selection complete Results Reviewed Results Reviewed: X-rays of the patient's bilateral knees taken previously show joint space narrowing, subchondral sclerosis, no acute bony abnormalities Assessment & Plan Assessment & Plan (1) Arthritis of left knee: Code(s): M17.12 - Unilateral primary osteoarthritis, left knee Category: Medical (2) Arthritis of right knee: Code(s): M17.11 - Unilateral primary osteoarthritis, right knee Category: Medical Plan Ms. Lundy presents with bilateral knee pains due to degenerative joint disease. The risks and benefits of bilateral knee cortisone injections were discussed at length with the patient. The patient wished to proceed. She tolerated the injections well. She will continue with her home exercise program. She will contact me prior to her follow-up appointment in 3 months should any questions or concerns arise. Feel free to call me at any time should questions regarding her orthopedic management arise. I spent 22 minutes in reviewing the patient's records and imaging studies, seeing the patient and documenting in the medical record. Orders: Orders AMB Joint Injection/Aspiration 08/22/24 M17.12 - Unilateral primary osteoarthritis, left knee AMB Joint Injection/Aspiration 08/22/24 M17.11 - Unilateral primary osteoarthritis, right knee Coding Level of Care Code Est Pt Level 3 (80697) Complex EM visit Add On G2211 Diagnoses Arthritis of left knee M17.12 Arthritis of right knee M17.11 CPT Codes Coding - 17136 Large joint: 01453 - Large joint ([id number]) Coding - 85974 Large joint: 34111 - Large joint ([id number])
[2024-08-22 12:56] VITALS: BMI 36.2
== END 2024-08-22 13:17 | disposition home or self-care (01) ==
PROVIDERS: PCP Internal Medicine; Visit Provider Orthopaedic Surgery
DX: M17.0 Bilateral primary osteoarthritis of knee (principal)
CPT/HCPCS: 20610; 99213

== ENCOUNTER → 2024-08-22 12:42 | Outpatient (BNVA) | payer MEDICARE, OTHER, SELFPAY | PROVIDERS: PCP Internal Medicine; Visit Provider Orthopaedic Surgery | DX: M17.0 Bilateral primary osteoarthritis of knee (principal) | CPT/HCPCS: 20610; 99212; J1010; J2003 ==

== ENCOUNTER 2024-09-12 13:28 | Outpatient (AMB) | payer MEDICARE, OTHER, SELFPAY ==
--- NOTE | 2024-09-12 13:30 | HO.NEPHOV_ITS ---
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 She has history of diabetes and hypertension. She also has history of Raynaud's as well as arthritic symptoms. Her A1c is good. She had seen a plate painter apprentice in the past. She was taking nonsteroidal anti-inflammatory medications in the past. She is on RADHA-inhibitor and diuretics. She feels her blood sugar and blood pressure well controlled. She has no history of coronary disease, CVA, CARLOS, CHF, renal stones. She has a diagnosis of carotid / subclavian stenosis. She had a pneumonia this July. [facility] Medical History Type 2 diabetes mellitus with renal complication Obstructive sleep apnea Lichen planus of tongue Irritable bowel syndrome Hypersomnia with sleep apnea Hyperlipidemia Hallux valgus of left foot Chronic kidney disease, stage 3a Chronic headache disorder Acquired hypothyroidism Hypertension Surgical History History of knee surgery History of tubal ligation History of appendectomy History of tonsillectomy Family History Father Diabetes Social History Alcohol intake: current Patient Tobacco Use Status: Former Tobacco user Review of Systems Const All systems reviewed & are unremarkable except as noted in HPI and below Physical Exam Vital Signs: Last Vital Signs Pulse 94 09/12/24 13:36 BP 130/70 09/12/24 13:36 Pulse Ox 98 09/12/24 13:36 Oxygen Delivery Method Room Air 09/12/24 13:36 BMI result Body Mass Index 35.3 Const General: comfortable and no acute distress Orientation/consciousness: patient oriented x3 HEENT Head: Yes normocephalic Mouth: Normal oral and palatal mucosa present Eyes EOM: EOMs intact bilaterally Neck Neck: Yes supple Resp Auscultation: clear to auscultation bilaterally Cardio Jugular venous distension: no JVD Rate: regular rate GI Palpation (GI): Soft to palpation Auscultation: normal bowel sounds Skin General skin exam: no rashes or lesions noted Neuro General: patient oriented x3 and moves all extremities Extrem General: Yes no pedal edema Results Reviewed Nephrology Results: No Data to Display Assessment & Plan Assessment & Plan (1) CKD (chronic kidney disease) stage 2, GFR 60-89 ml/min: Code(s): N18.2 - Chronic kidney disease, stage 2 (mild) Category: Medical (2) Hypertension: Code(s): I10 - Essential (primary) hypertension Category: Medical Qualifiers: Hypertension type: primary hypertension Qualified Code(s): I10 - Essential (primary) hypertension Plan 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 She is on RADHA-inhibitor. She had sulfa allergy and takes only amiloride. She was encouraged to minimize nonsteroidal anti-inflammatories and maintain good hydration. She needs good blood sugar and blood pressure control. Her renal function is quite stable. She may be a candidate for Doppler of renal arteries in the future. Follow-up lab work was ordered. Answered all questions Orders: Orders Protein Creatinine Ratio, Ur 6 Months I10 - Essential (primary) hypertension, N18.2 - Chronic kidney disease, stage 2 (mild) Creatinine 6 Months I10 - Essential (primary) hypertension, N18.2 - Chronic kidney disease, stage 2 (mild) Blood Urea Nitrogen 6 Months I10 - Essential (primary) hypertension, N18.2 - Chronic kidney disease, stage 2 (mild) Electrolytes 6 Months I10 - Essential (primary) hypertension, N18.2 - Chronic kidney disease, stage 2 (mild) Coding Level of Care Code Est Pt Level 4 (25523) Diagnoses CKD (chronic kidney disease) stage 2, GFR 60-89 ml/min N18.2 Primary hypertension I10 Hypertension type: primary hypertension
[2024-09-12 13:36] VITALS: BP 130/70; PULSE 94; O2SAT 98; BMI 35.3
--- OUTSIDE RECORDS SUMMARY | 2024-09-12 16:26 | XMS_ITS | Clinical Summary ---
Author Organization [address] [facility] Address [address] [place] [address] Phone Care Team Providers Care Water Quality Analyst Name Role Phone Geoffrey Velasco MD Primary Care Provider [phone] Allergies Active Allergy Reactions Criticality Noted Date [...] Active medical supply, miscellaneous (MISCELLANEOUS MEDICAL SUPPLY [facility]) 8 cm at bedtime. Nasal pillows/ [employer] [...] complication, without long-term current use of insulin ([facility]) Inject 0.5 mg under the skin [...] Encounters Date Type Department Care Team Description 08/23/2024 12:38 PM EST - 08/23/2024 11:59 PM EST Hospital [facility] [address] [place] [id number] Moderate persistent reactive airway disease without complication; Pneumonia due to infectious organism, unspecified laterality, unspecified part of lung Discharge Disposition: Home or Self Care 08/19/2024 Telephone [facility] [address] [place] [phone] [place] DME request 08/09/2024 11:30 AM EST Office Visit [facility] [address] [place] [phone] Mignon Denis NP Obstructive sleep apnea syndrome (Primary Dx); Insomnia, unspecified type; Moderate persistent reactive airway disease without complication; Pneumonia due to infectious organism, unspecified laterality, unspecified part of lung from Last 3 Months Immunizations Name Administration Dates Next Due H1N1 Inj Preservative Free 06/26/2009 Hepatitis A Adult (Havrix; V aqta) 19yo and older 09/18/2001 Hepatitis A Pediatric (Havri x; Vaqta) 12mo to less than 19yo 09/03/2008 Hepatitis B (Juynawl-D-Brlqx , Recombivax HB-Adult) 19yo and older 09/09/2008,10/13/2001,09/18/2001 [...] OTHER SURGICAL HISTORY left lateral 10/16 PROCEDURE: [place] BIOPSY TONGUE ANTERIOR TWO-THIRDS; COMMENT: Leukoplakia, 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 Also sees Dr. Ulloa ANKLE FRACTURE SURGERY 05/03/2009 Left PROCEDURE: [place] OPEN TREATMENT MEDIAL MALLEOLUS FRACTURE; COMMENT: trimalleolar ORIF TUBAL LIGATION PROCEDURE: HISTORICAL TUBAL LIGATION COLONOSCOPY 11/05/2003 PROCEDURE: HISTORICAL COLONOSCOPY; COMMENT: good for 10 yrs. OTHER SURGICAL HISTORY 01/28/2014 PROCEDURE: COLON CA SCRN NOT HI RSK IND; COMMENT: tics; completed to hepatic flexure; would not repeat OTHER SURGICAL HISTORY 01/09/2024 PROCEDURE: [place] SLCTV CATH CAROTID/INNOM ART ANGIO INTRCRANL ART OTHER SURGICAL HISTORY 01/09/2024 Bilateral PROCEDURE: [place] SLCTV CATH SUBCLAVIAN ART ANGIO VERTEBRAL ARTERY [...] atypical Diet-controlled type 2 diabe gayla mellitus ([facility]/HCC) 10/07/2015 DX:Diet-controlled type 2 di abetes mellitus (HCC) Acquired hypothyroidism 12/01/2016 DX:Acqui red hypothyroidism Severe obesity (BMI 35.0-39. 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 For example, child monitor or elderly care for an older adult? [...] PM EDT Office Visit Internal Medicine - [facility] [address] [place] [address] Tami Young, GRAEME [address] [place] [address] 12/12/2024 1:00 PM EDT Office Visit Pulmonolgy - [place] 175 [facility] [address] [place] [address] Mignon Denis, GRAEME 175 [facility] [address] [place] [address] 12/23/2024 12:00 PM EDT Ancillary Procedure [facility] - [facility] [address] [facility] [address] [place] [address] 02/06/2025 3:10 PM EDT Appointment Radiology Department - [address] [address] 03/13/2025 11:00 AM EDT Office Visit Vascular Surgery - [place] 300 [facility] [address] [place] [address] Jez Koenig MD 300 [facility] [address] [place] [address] Health Maintenance Due Date Last Done Comments [...] Urine Albumin-Creatinine Ratio (uACR) 01/24/2025 01/25/2024, 11/10/2022 Depression Screening 05/27/2025 05/27/2024, 05/16/2023, 05/16/2023 Social Influencers of Health Screening 05/27/2025 05/27/2024 Diabetes: Annual GFR (Glomerular Filtration Rate) 08/23/2025 08/23/2024, 02/06/2024, 02/06/2024, Additional history exists Hypertension/CHF/CAD Annual BMP Blood Test 08/23/2025 08/23/2024, 02/06/2024, 02/06/2024, Additional history exists DTaP,Tdap,and Td Vaccines (4 - Td or [...] Procedure Name Priority Date/Time Associated Diagnosis Comments CREATININE, SERUM Routine 08/23/2024 1:0 4 PM EST Chronic kidney disease, stage II (mild) Essential hypertension, malignant BUN Routine 08/23/2024 1:04 PM EST Chronic kidney disease, stage II (mild) Essential hypertension, malignant ELECTROLYTE PANEL Routine 08/23/2024 1:0 4 PM EST Chronic kidney disease, stage II (mild) Essential hypertension, malignant XR CHEST 2 VIEWS Routine 08/23/2024 12:4 3 PM EST Moderate persistent reactive airway disease without complication Pneumonia due to infectious organism, unspecified laterality, unspecified part of lung HEMOGLOBIN A1C Routine 05/28/2024 4:17 PM EST Type 2 diabetes mellitus with diabetic microalbuminuria, without long-term current use of insulin ([facility]) URINE ALBUMIN CREATININE RATIO Routine 01/25/2024 LIPID [...] Recently Relevant to Health Maintenance Results * (ABNORMAL) Creatinine (08/23/2024 1:04 PM EST) Pathologist [facility] Creatinine 1.07 0.50 - 1.10 mg/dL LAB CHEMISTRY METHOD 08/23/2024 4:11 PM EST [facility] eGFR 54(L) >=60 mL/min/1. 73m2 LAB CHEMISTRY METHOD 08/23/2024 4:11 PM EST [facility] Comment:Calculation based on the??Chronic Kidney Disease Epidemiology Collaboration (CKD-EPI) equation refit??without adjustment for race. Blood Venous blood specimen / Unknown Venipuncture / Unknown 08/23/2024 1:04 PM EST 08/23/2024 1:04 PM EST us Aleksander Granados MD LAB BLOOD ORDERABLES Final Resul t Performing Organization Address City/[facility]/ZIP Co de Phone Number [facility] [address] [place] [address], [place] [phone] * BUN (08/23/2024 1:04 PM EST) [facility] BUN 24 5 - 25 mg/dL LAB CHEMISTRY METHOD 08/23/2024 4:11 PM EST [facility] Blood Venous blood specimen / Unknown Venipuncture / Unknown 08/23/2024 1:04 PM EST 08/23/2024 1:04 PM EST us Aleksander Granados MD LAB BLOOD ORDERABLES Final Resul t [facility] [address] [place] [address], [place] [phone] * Electrolyte panel (08/23/2024 1:04 PM EST) Sodium 137 133 - 145 mmol/L LAB CHEMISTRY METHOD 08/23/2024 4:11 PM EST [facility] Potassium 4.6 3.5 - 5.5 mmol/L LAB CHEMISTRY METHOD 08/23/2024 4:11 PM EST [facility] Chloride 102 96 - 110 mmol/L LAB CHEMISTRY METHOD 08/23/2024 4:11 PM EST [facility] CO2 28 21 - 32 mmol/L LAB CHEMISTRY METHOD 08/23/2024 4:11 PM EST [facility] Anion Gap 7 3 - 11 LAB CHEMISTRY METHOD 08/23/2024 4:11 PM EST [facility] Blood Venous blood specimen / Unknown Venipuncture / Unknown 08/23/2024 1:04 PM EST 08/23/2024 1:04 PM EST us Aleksander Granados MD LAB BLOOD ORDERABLES Final Resul t [facility] [address] [place] [address], [place] [phone] * XR Chest 2 Views (08/23/2024 12:43 PM EST) Anatomical Region Laterality Modality Body Radiographic Lucia ging 08/23/2024 1:16 PM EST Impressions 08/23/2024 1:18 PM EST Streaky opacities within the left lower lung zone could represent atelectasis. ?? -------- FINAL REPORT -------- Dictated By: Tenzin Beckwith Dictated Date: 08/23/2024 13:16 ET Assigned Physician: Tenzin Beckwith Reviewed and Electronically Signed By: Tenzin Beckwith Signed Date: 08/23/2024 13:18 ET Workstation ID: [id number] Transcribed By: Self Edit Transcribed Date: 08/23/2024 13:16 ET Narrative 08/23/2024 1:18 PM EST HISTORY: upper respiratory infection follow up on PNA diagnosed in 07/15/2024 TECHNIQUE: PA and lateral radiographs of the chest COMPARISON: Chest radiograph from 05/16/2023 FINDINGS: There is a normal cardiomediastinal silhouette. ??Atherosclerosis of thoracic aorta. ??Thin linear streaky opacities within the left lower lung zone. ??Mild degenerative changes of thoracic spine. Procedure Note Tenzin Beckwith MD - 08/23/2024 HISTORY: upper respiratory infection follow up on PNA diagnosed in 07/15/2024 TECHNIQUE: PA and lateral radiographs of the chest COMPARISON: Chest radiograph from 05/16/2023 FINDINGS: There is a normal cardiomediastinal silhouette. Atherosclerosis ofthoracic aorta. Thin linear streaky opacities within the left lower lungzone. Mild degenerative changes of thoracic spine. IMPRESSION: Streaky opacities within the left lower lung zone could representatelectasis. -------- FINAL REPORT -------- Dictated By: Tenzin Beckwith Dictated Date: 08/23/2024 13:16 ET Assigned Physician: Tenzin Beckwith Reviewed and Electronically Signed By: Tenzin Beckwith Signed Date: 08/23/2024 13:18 ET Workstation ID: [id number] Transcribed By: Self Edit Transcribed Date: 08/23/2024 13:16 ET Mignon Denis HEAD MILLER IMG XR PROCEDURES Final Result * Hemoglobin A1c (05/28/2024 4:17 PM EST) Hemoglobin A1C 5.8 <6.5 % LAB CHEMISTRY METHOD 05/29/2024 12:59 PM EST [facility] Mean Bld Glu Estim. 120 mg/dL LAB CHEMISTRY METHOD 05/29/2024 12:59 PM EST [facility] Blood Venous blood specimen / Unknown Venipuncture / Unknown 05/28/2024 4:17 PM EST 05/28/2024 4:17 PM EST us Geoffrey Velasco MD LAB BLOOD ORDERABLES Kyara l Result [facility] [address] [place] [address], * Urine Albumin Creatinine Ratio (01/25/2024) [facility] Urine Albumin Creatinine Ratio Abstracted Historical Provider HEALTH MAINTENANCE Final Result * (ABNORMAL) Lipid panel (01/25/2024) [facility] LDL/HDL Ratio 3 0 - 4 Triglycerides 207(A) 0 - 150 mg/dL Cholesterol 167 0 - 200 mg/dL HDL 61 >=40 mg/dL LDL Cholesterol 65 0 - 100 mg/dL Blood Venous blood specimen / Unknown Historical Provider LAB BLOOD ORDERABLES Kyara l Result * Diabetes Eye Exam (10/09/2023) [facility] Diabetes: Annual Retina Eye Exam Abstracted Historical Provider HEALTH MAINTENANCE Final Result * Depression Screening (05/16/2023) [facility] Depression Screening Abstracted Historical Provider HEALTH MAINTENANCE Final Result * Hepatitis C Screening (06/09/2022) [facility] Hepatitis C Screening Abstracted Historical Provider HEALTH MAINTENANCE Final Result * DEBORAH SCREENING DIGITAL (11/18/2021 6:52 PM EDT) Anatomical Region Laterality Modality Mammography 11/18/2021 2:08 PM EDT Narrative 11/18/2021 6:52 PM EDT [facility] Diagnostic Imaging Department [address] [place], [place] [id number] Patient: ??DESTINY LUNDY ?/Age/Sex: 1945 - 76 - F Unit#: ??[id number] ? Location/Status: ??SPDIMAM/REG CLI ? Mnemonic/Ordering Site: ??DIGSC/SPMAM Ordering Physician: ??SHEILA AGUILAR HEAD MILLER Deborah Screening Digital - 11/18/21 - 1445 History: Bilateral breast cancer screening. Technique: Digital mammography. Conventional CC and MLO projections with tomosynthesis MLO views and computer aided detection. Comparison: 06/12/2020 through 01/04/2017. Findings: ??Breast tissue consists of a combination of fatty and fibroglandular elements (category b density) (as calculated by DigitalMRpara software). There are benign calcifications and stable asymmetries bilaterally. ??No suspicious group of calcification, architectural distortion, suspicious mass or suspicious asymmetry. Impression: ??No evidence of malignancy. BIRADS Category 2, benign findings, 3342F 57321, [address]9775 Note: Patient information entered into a reminder system with a target due date for the next mammogram: ??CPT II 7025F Dictating Physician: ??BIJAN YOU MD Electronically Signed by: ??BIJAN YOU MD Dic Date/Time: ??11/18/211849 Sign date/Time: ??11/18/211851 Procedure Note Bijan You MD - 06/29/2022 [facility] Diagnostic Imaging Department [address] [place], [place] [address] Patient: DESTINY LUNDY Seble Mary./Age/Sex: 1945 - 76 - F Unit#: [id number] Location/Status: SPDIMAM/REG CLI Mnemonic/Ordering Site: [facility] Ordering Physician: SHEILA AGUILAR NP Deborah Screening Digital - 11/18/21 - 1445 History: Bilateral breast cancer screening. Technique: Digital mammography. Conventional CC and MLO projections with tomosynthesis MLO views and computer aided detection. Comparison: 06/12/2020 through 01/04/2017. Findings: Breast tissue consists of a combination of fatty andfibroglandular elements (category b density) (as calculated by DigitalMRpara software).There are benign calcifications and stable asymmetries bilaterally. Nosuspicious group of calcification, architectural distortion, suspicious mass orsuspicious asymmetry. Impression: No evidence of malignancy. BIRADS Category 2, benign findings, 3342F 51456, [address]199 Note: Patient information entered into a reminder system with a target duedate for the next mammogram: CPT II 7025F Dictating Physician: BIJAN YOU MD Electronically Signed by: BIJAN YOU MD Dic Date/Time: 11/18/211849 Sign date/Time: 11/18/211851 us Sheila Aguilar HEAD MILLER IMG BI PROCEDURES Final Result * DXA [...] (World Health Organization Fracture Risk Assessment) [facility] Department of Internal Medicine recommends using National [...] (World Health Organization Fracture Risk Assessment) [facility] Department of Internal Medicine recommendsusing National Osteoporosis [...] fracture risk by FRAX. Vy France MD [facility] DXA PROCEDURES Final Re sult from Last 3 Months or Most Recently Relevant to Health Maintenance Insurance [facility]ICARE [facility] Care Teams Water Quality Analyst Relationship Specialty Start Date End Date Geoffrey Velasco MD [address] [place] [id number] PCP - General Internal Medicine 04/21/20
--- OUTSIDE RECORDS SUMMARY | 2024-09-12 16:26 | XMS_ITS | Clinical Summary ---
Author Organization [facility] Address [address] [place] [address] Care Team Providers Care Commissary Helper Name Role Phone Vy France MD Primary Care Provider [phone] Allergies Active Allergy Reactions Criticality Noted Date [...] emulsion Apply to eye. 0 Ac tive Trappe-3 Fatty Acids (FISH OIL PO) by Does [...] age to complete this topic Care Teams Commissary Helper Relationship Specialty Start Date End Date Vy France MD PCP - General Internal Medicine 02/27/17
--- OUTSIDE RECORDS SUMMARY | 2024-09-12 16:26 | XMS_ITS | Data Portability ---
Author Organization [facility] Yordan Magana [place] Address [address] [facility] [address] [place] [address] Care Team Providers Care Training And Documentation Specialist Name Role Phone ABI KELLY Referring Provider [phone] ABI KELLY Primary Care Provider [phone] Assessment Encounter Date Assessment Date Assessment LastModified [...] findings at length with the patient today. ? ? ?We discussed the nature and etiology of this problem along with current treatment options. We discussed the expected course and outcomes and what to expect. We also discussed risks and benefits. ? ? ? All of their questions were answered today, and there was exhibited understanding and comprehension of all that was discussed. Time Spent: 10 minutes were spent reviewing previous imaging and charting. ? ? ?10 minutes were spent obtaining patient history. ? ? ?5 minutes were spent on physical exam. ? ? ?5? ? ?minutes were spent explaining diagnosis and assessment. Today's [...] findings at length with the patient today. ? ? ?We discussed the nature and etiology of this problem along with current treatment options. We discussed the expected course and outcomes and what to expect. We also discussed risks and benefits. ? ? ? All of their questions were answered today, and there was exhibited understanding and comprehension of all that was discussed. Time Spent: 10 minutes were spent reviewing previous imaging and charting. ? ? ?10 minutes were spent obtaining patient history. ? ? ?5 minutes were spent on physical exam. ? ? ?5? ? ?minutes were spent explaining diagnosis and assessment. Today's [...] findings at length with the patient today. ? ? ?We discussed the nature and etiology of this problem along with current treatment options. We discussed the expected course and outcomes and what to expect. We also discussed risks and benefits. ? ? ? All of their questions were answered today, and there was exhibited understanding and comprehension of all that was discussed. Time Spent: 10 minutes were spent reviewing previous imaging and charting. ? ? ?10 minutes were spent obtaining patient history. ? ? ?5 minutes were spent on physical exam. ? ? ?5? ? ?minutes were spent explaining diagnosis and assessment. Today's [...] findings at length with the patient today. ? ? ?We discussed the nature and etiology of this problem along with current treatment options. We discussed the expected course and outcomes and what to expect. We also discussed risks and benefits. ? ? ? All of their questions were answered today, and there was exhibited understanding and comprehension of all that was discussed. Time Spent: 10 minutes were spent reviewing previous imaging and charting. ? ? ?10 minutes were spent obtaining patient history. ? ? ?5 minutes were spent on physical exam. ? ? ?5? ? ?minutes were spent explaining diagnosis and assessment. Today's documentation was made using voice recognition software. This note may contain grammatical errors secondary to the software. Not available 09/15/2023 08:47:32 12/28/2023 12/28/2023 78-year-old female with bilateral knee pain. History, examination and x-rays are consistent with advanced qail-ck-klyv osteoarthritis. After discussion regarding treatment options she wishes to proceed with cortisone injections to bilateral knees. See the attached procedure note. Follow-up is as needed. This patient was seen and evaluated by Michael Robert MS, PACelyC in indirect conjunction with documenting/supe rvising provider [...] view 2023 024 [email or web address] 2 [facility], [address], [place], [address], 4 11:22:24 XR, knee, 4 or more view 2023 024 [email or web address] 2 [facility], [address], [place], [address], 4 11:22:24 XR, knee, 1 or 2 view - Left Knee Pain 2022 023 [facility], [address], [place], [address], 3 12:17:33 XR, knee, 1 or 2 view - Right Knee Pain 2022 023 [facility], [address], [place], [address], 3 12:17:33 XR, knee, weightbeari ng - Bilateral Knee Pain 2022 023 [facility], [address], [place], [address], 3 12:17:33 Medication Orders Marcaine (PF) 0.5 % (5 mg/mL) injection solution [address]/[facility] #0517, [address], [place], [address], 4 11:14:32 lidocaine (PF) 100 mg/5 mL (2 %) injection syringe [address]0517, [address], [place], [address], 4 11:14:32 triamcinolo ne acetonide 40 mg/mL suspension for injection [address]/[facility]0517, [address], [place], [address], 4 11:14:32 Marcaine (PF) 0.5 % (5 mg/mL) injection solution [address]/[facility]0517, [address], [place], [address], 4 11:14:32 lidocaine (PF) 100 mg/5 mL (2 %) injection syringe [address]/[facility] #0517, [address], [place], [address], 4 11:14:32 triamcinolo ne acetonide 40 mg/mL suspension for injection [address]/[facility] #0517, [address], [place], [address], 4 11:14:32 Kenalog 40 mg/mL suspension for [...] mg/mL suspension for injection 2022 023 [email or web address] [facility]acy #5419, [address], [place], [address], 4 11:32:00 lidocaine (PF) 10 mg/mL (1 %) injection solution 2022 023 [address], [address], [place], [address], 11:32:03 Kenalog 40 mg/mL suspension for injection 2022 023 [address], [address], [place], [address], 4 11:32:00 lidocaine (PF) 10 mg/mL (1 %) injection solution 2022 023 [address], [address], [place], [address], 11:32:03 Patient TargetsNo targets recorded. Patient Instructions Encounter Date Encounter Id Patient Instructions Last Modified By Organization Details Last Modified Time 11/25/2022 [id number] You have been provided with a cortisone [...] the injection. This is called a ? f lare? . To help minimize the chances of [...] is observed. Not available 11/25/2022 10:35:40 02/23/2023 [id number] You have been provided with a cortisone [...] the injection. This is called a ? f lare? . To help minimize the chances of this, please see the post-injection instructions above. There is a less than 1% chance of an infection. If you notice any signs of infection (redness, warmth, drainage, fever greater than 100 degrees) please call our office or contact us through the portal GISELA. Not available 02/24/2023 07:59:38 06/08/2023 [id number] You have been provided with a cortisone [...] the injection. This is called a ? f lare? . To help minimize the chances of this, please see the post-injection instructions above. There is a less than 1% chance of an infection. If you notice any signs of infection (redness, warmth, drainage, fever greater than 100 degrees) please call our office or contact us through the portal GISELA. Not available 06/08/2023 12:48:41 09/14/2023 [id number] You have been provided with a cortisone [...] the injection. This is called a ? f lare? . To help minimize the chances of this, please see the post-injection instructions above. There is a less than 1% chance of an infection. If you notice any signs of infection (redness, warmth, drainage, fever greater than 100 degrees) please call our office or contact us through the portal GISELA. Not available 09/15/2023 08:46:31 12/28/2023 [id number] {{2 3 4 5 6 7 8* [...] Recorded Time Pain of bilateral knee joints 4940248139506 04 Active 2022 MICHAEL AUGUSTIN PA-C [address], [place], [address], [place] [facility] 3 07:59:43 Osteoarthri tis of right knee joint 3217797307226 00 Active 2022 MICHAEL AUGUSTIN PA-C [address], [place], [address], [place] [facility], [facility] 3 10:32:55 Osteoarthri tis of left knee joint 4430827059931 09 Active 2022 MICHAEL AUGUSTIN PA-C [address], [place], [address], [place] [facility] 3 10:33:00 Problem Notes None recorded. Procedures Surgical History Date Name Laterality Status Provider Name and Address Organization Details Recorded Time 4 MJG Knee injection w/US completed MICHAEL ROBERT PA-C [address], [place], [address], [place] [facility] 12/28/2023 11:11:46 4 Knee Joint/Bursa Asp & Inj completed MICHAEL AUGUSTIN PA-C [address], [place], [address], [place] [facility] 09/15/2023 08:46:31 3 Knee Joint/Bursa Asp & Inj completed MICHAEL AUGUSTIN PA-C [address], [place], [address], [place] [facility] 06/08/2023 12:48:41 3 Knee Joint/Bursa Asp & Inj completed MICHAEL AUGUSTIN PA-C [address], [place], [address], [place] [facility] 02/24/2023 07:59:38 3 Knee Joint/Bursa Asp & Inj completed MICHAEL AUGUSTIN PA-C [address], [place], [address], [place] [facility] 11/25/2022 10:32:45 Imaging Results None recorded. Procedure Notes None recorded. Medical Equipment None Reported. Allergies Allergen ID Allergen Name Allergen Category Reaction Reaction Severity Criticality Documentation Date Start Date Code Code System Note Provider Name and Address Organization Details Recorded Time 28013 Substance with sulfonami de structure and antibacte rial mechanism of action (substanc e) medicatio n Not available Not available Not available 06/08/2023 39945 8003 SNOMED [facility], [place] [facility] 3 13:05:26 Medications Name Sig Start [...] 2023 active Not Available Not Available Not Avflorida labquinn mirtazapine 15 mg tablet TAKE 1 TABLET [...] 2023 active Not Available Not Available Not Avflorida rossi BD Ultra-Fine Mini Pen Needle 31 gauge x 3/16 USE 1 PEN NEEDLE ONCE DAILY active Not Available Not Available No t Available lidocaine (PF) 10 mg/mL (1 %) injection solution Take 2 mL by injection route. 2023 active Not Available Not Available Not Paty rossi Advair HFA 115 mcg-21 mcg/actuati on aerosol [...] SNOMED-CT Code Diagnosis ICD10 Code Diagnosis Note [id number] [facility] [address] [address] 11/25/2022 10:01:15 11/25/2022 10:39:21 Pain of bilateral knee joints 7307303125 62052 M25.561 M25.562 Osteoarthr itis of right knee joint 4319437130 M17.11 Osteoarthr itis of left knee joint 9704580883 54271 M17.[id number] [facility] [address] [address] 02/23/2023 12:55:08 02/23/2023 13:29:47 Osteoarthritis of right knee joint 1277808469 M17.11 Osteoarthr itis of left knee joint 1447450151 47338 M17.12 Pain of bi lateral knee joints 4876691211 91063 M25.561 M25.562 [id number] [facility] [address] [address] 06/08/2023 12:47:14 06/08/2023 13:30:34 Osteoarthritis of right knee joint 6128638801 M17.11 Osteoarthr itis of left knee joint 0208337311 78489 M17.12 Pain of bi lateral knee joints 3122664627 72806 M25.561 M25.[id number] [facility] [address] [address] 09/14/2023 11:29:49 09/14/2023 11:50:47 Osteoarthritis of left knee joint 8024525683 47957 M17.12 Osteoarthr itis of right knee joint 0758076113 M17.11 Pain of bi lateral knee joints 8109766678 56456 M25.561 M25.562 [address] [place] [address] 12/28/2023 10:35:48 12/28/2023 11:22:24 Pain of right knee joint 8567733752 39758 M25.561 Additional diagnosis detail: Pain in joint of right knee Pain of le ft knee joint 2291889545 22145 M25.562 Additional diagnosis detail: Pain in joint of left knee Osteoarthr itis of right knee joint 8207699776 87426 M17.11 Osteoarthr itis of left knee joint 2582812291 73079 M17.12 Health Concerns Section Related Observation LastModified by Organization Detai ls LastModified Time None Recorded Concern Status LastModified by Organization Details LastModified Time None Recorded Advance Directives Directive None Recorded Payers Encounter Date Sequence Insurance Name Policy Number Policy Harman Covered Member ID Harman Member ID Guarantor Name 11/25/2022 2 [facility] 1 (MEDICARE SUPPLEMENT) [id number] 1 Destiny A Papirio [id number] Destiny Papirio 11/25/2022 1 [place] Destiny A Papirio [id number] Destiny Papirio 02/23/2023 2 [facility] 1 (MEDICARE SUPPLEMENT) [id number] 1 Destiny A Papirio [id number] Destiny Papirio 02/23/2023 1 [place] [employer] Destiny A Papirio [id number] Destiny Papirio 06/08/2023 2 [facility] 1 (MEDICARE SUPPLEMENT) [id number] 1 Destiny A Papirio [id number] Destiny Papirio 06/08/2023 1 [place] [employer] Destiny A Papirio [id number] Destiny Papirio 09/14/2023 2 [facility] 1 (MEDICARE SUPPLEMENT) [id number] 1 Destiny A Papirio [id number] Destiny Papirio 09/14/2023 1 [place] [employer] Destiny A Papirio [id number] Destiny Papirio 12/28/2023 [facility] (MEDICARE SUPPLEMENT) [id number] 1 Destiny Lundy [id number] Destiny Delatorreana m 12/28/2023 1 [place] [facility] Destiny Lundy [id number] Destiny Lundy Notes Date Note Type Note [...] at this time. MICHAEL AUGUSTIN PA-C [address] [facility],[address] [address], [place], [address], [facility] - [facility] P 11/25/2022 10:36:26 02/23/2023 text/html This is a 77-year-old female last seen on 11/25/2022 for which she had cortisone injections which gave her good satisfactory relief. She states this gives her approximately 3 months of relief however her symptoms have started to return of medial joint space pain. She takes iadb-xtf-udlsoql pain medication which gives her some relief. Denies swelling denies fevers or chills here for evaluation and treatment. MICHAEL AUGUSTIN PA-C [address] [facility],[address] [address], [place], [address], [place] [facility] 02/24/2023 08:02:14 06/08/2023 text/html This is a 77-year-old female last seen on 02/23/2023 for which she had cortisone injections which gave her good satisfactory relief. She states this gives her approximately 3 months of relief however her symptoms have started to return of medial/generalized bilateral joint space pain. She takes ejho-oti-tijgalq pain medication which gives her some relief. Denies swelling denies fevers or chills here for evaluation and treatment. MICHAEL AUGUSTIN PA-C [address] [facility],[address], [place], [address], [facility] 06/08/2023 13:30:46 09/14/2023 text/html This is a 77-year-old female last seen on 06/08/2023 for which she had cortisone injections which gave her good satisfactory relief. She states this gives her approximately 3 months of relief however her symptoms have started to return of medial/generalized bilateral joint space pain. She takes hboz-ykh-fucludl pain medication which gives her some relief. Denies swelling denies fevers or chills here for evaluation and treatment. MICHAEL AUGUSTIN PA-C [address] [facility],[address] [address], [place], [address], [place] [facility] 09/15/2023 13:26:31 12/28/2023 text/html 78-year-old fema [...] good surgical candidate. MICHAEL ROBERT PA-C [address] [facility],[address] [address], [place], [address], [place] [facility] 12/28/2023 11:14:25 OBGyn Episode No OBEpisode recorded.
--- OUTSIDE RECORDS SUMMARY | 2024-09-12 16:26 | XMS_ITS | Encounter Summary ---
Author Organization [facility] Address [address] [place] [address] Care Team Providers Care Referral Nurse Name Role Phone Geoffrey Velasco MD Primary Care Provider [phone] Encounter Details Date Type Department Care Team (Latest Contact Info) Description 08/23/2024 12:38 PM EST - 08/23/2024 11:59 PM EST Hospital Encounter [facility] [address] [place] [address] Moderate persistent reactive airway disease without complication; Pneumonia due to infectious organism, unspecified laterality, unspecified part of lung Discharge Disposition: Home or Self Care Social History Tobacco Use Types Packs/Day Years [...] Record ed Within the last 3 months, maribel w many times did you visit the [...] your loved ones. For example, child care sitter or elderly care for an older adult? [...] on file documented as of this encounter Medications at Time of Discharge albuterol HFA (PROAIR HFA ; PROVENTIL HFA ; VENTOLIN HFA) 90 mcg/actuation inhalerIndications: Obstructive sleep apnea (adult) (pediatric),Mild intermittent asthma, uncomplicated INHALE 2 PUFFS BY MOUTH EVERY 4 HOURS NEEDED FOR WHEEZE OR FOR SHORTNESS OF BREATH 8.5 each 3 06/05/2024 aMILoride (MIDAMOR) 5 mg tablet Take 0.5 tablets (2.5 mg total) by mouth 1 (one) time each day. 45 each 06/19/2024 2 aspirin 81 mg EC tablet Take 1 tablet (81 mg total) by mouth 1 (one) time each day. 10/26/2007 atorvastatin (LIPITOR) 80 mg tablet Take 1 tablet (80 mg total) by mouth 1 (one) time each day. 02/26/2017 B complex tablet Take by mouth. calcium carbonate/vitamin D3 (CALCIUM + D ORAL) 1 cap bid clobetasoL (TEMOVATE) 0.05 % gel Apply 1 applicator topically 1 (one) time each day. APPLY TOPICALLY AT BEDTIME DIRECTED BY DR CORNELL - Topical 01/01/2017 docosahexaenoic acid/epa (FISH OIL ORAL) by Does [...] by mouth 1 (one) time each day. 02/26/2017 lisinopriL (PRINIVIL,ZESTRIL) 20 mg tabletIndications:E ssential (primary) hypertension,Chroni c kidney disease, stage 3 unspecified (CMS/HCC) TAKE 1 TABLET BY MOUTH EVERY DAY 90 tablet 1 08/16/2024 magnesium chloride 71.5 mg tablet,delayed release (DR/EC) Take 1 tablet (71.5 mg total) by mouth 1 (one) time each day. medical supply, miscellaneous (MISCELLANEOUS MEDICAL SUPPLY MISC) 8 cm at bedtime. Nasal pillows/ [employer] mirtazapine (REMERON) 7.5 mg tabletIndications:P sychophysiologic insomnia TAKE 1 TABLET BY MOUTH EVERYDAY AT BEDTIME 90 tablet 1 07/22/2024 MULTIVITAMIN ORAL None Entered nortriptyline (PAMELOR) 50 mg capsule Take 1 capsule (50 mg total) by mouth at bedtime. 02/14/2017 omega-3 acid ethyl esters (LOVAZA) 1 gram capsule Take 1 capsule (1 g total) by mouth 1 (one) time each day. Ozempic 0.25 mg or 0.5 mg (2 mg/3 mL) injection penIndications:Type 2 diabetes mellitus without complication, without long-term current use of insulin ([facility]) Inject 0.5 mg under the skin every 7 (seven) days. 9 mL 1 07/02/2024 Pen Needle 31 gauge x /16 needle 1 each by Not Applicable route. 01/24/2018 ubidecarenone (COENZYME Q10 ORAL) Take by mouth daily. vitamin E acetate (VITAMIN E ORAL) daily documented as of this encounter Discharge Disposition Disposition Code Departure Means Destination Home or Self Care documented in this encounter Plan of Treatment Upcoming Encounters Date Type Department Care Team (Late st Contact Info) Description 10/04/2024 3:00 PM EDT Office Visit Internal Medicine - [facility] [address] [place] [address] Tami Young NP [address] [place] [address] 12/12/2024 1:00 PM EDT Office Visit Pulmonolgy - [place] [address] [facility] [address] [place] [address] Mignon Denis NP [address] [facility] [address] [place] [address] 12/23/2024 12:00 PM EDT Ancillary Procedure [facility] - [facility] 101 [address] [facility] [address] [place] [address] 02/06/2025 3:10 PM EDT Appointment Radiology Department - [address] [address] 03/13/2025 11:00 AM EDT Office Visit Vascular Surgery - [place] [address] [facility] [address] [place] [address] Jez Koenig MD [address] [place] [address] documented as of this encounter Procedures Procedure Name Priority Date/Time Associated Diagnosis Comments XR CHEST 2 VIEWS Routine 08/23/2024 12:4 3 PM EST Moderate persistent reactive airway disease without complication Pneumonia due to infectious organism, unspecified laterality, unspecified part of lung documented in this encounter Results * XR Chest 2 Views (08/23/2024 12:43 [...] Signed Date: 08/23/2024 13:18 ET Workstation ID: [id number] Transcribed By: Self Edit Transcribed Date: 08/23/2024 [...] Signed Date: 08/23/2024 13:18 ET Workstation ID: [id number] Transcribed By: Self Edit Transcribed Date: 08/23/2024 13:16 ET us Mignon Denis AIR DRIER MACHINE OPERATOR IMG XR PROCEDURES Final Result documented in this encounter Visit Diagnoses Diagnosis Moderate persistent reactive airway disease without complication Pneumonia due to infectious organism, unspecified laterality, unspecified part of lung documented in this encounter Additional Health Concerns Assessment Noted Time PHQ-9 Depression Total Score: 0 05/27/20 24 6:16 PM EST documented as of this encounter Care Teams Referral Nurse Relationship Specialty Start Date End Date Geoffrey Velasco MD [address] [place] [address] PCP - General Internal Medicine 04/21/20 documented as of this encounter
--- OUTSIDE RECORDS SUMMARY | 2024-09-12 16:26 | XMS_ITS | Clinical Summary ---
Author Organization [facility] Address [address] [facility] [address] [place] [address] Phone Care Team Providers Care Director Consumer Name Role Phone ElissarosarioGeoffrey doran Primary Care Provider [phone] Allergies Active Allergy Reactions Criticality Noted Date [...] 10/06/2015, 03/13/2013 Insurance MEDICARE [facility] MEDICARE [facility] Care Teams Director Consumer Relationship Specialty Start Date End Date Geoffrey Doolye [address] [place] [address] PCP - General Internal Medicine 03/28/23
--- OUTSIDE RECORDS SUMMARY | 2024-09-12 16:26 | XMS_ITS | Encounter Summary ---
Author Organization [facility] Address [address] [place] [address] Care Team Providers Care Skiing Instructor Name Role Phone Geoffrey Velasco MD Primary Care Provider [phone] Reason for Visit * Reason Onset Date Comments DME request 08/12/2024 Encounter Details Date Type Department Care Team ([facility] Contact Info) Description 08/19/2024 Telephone [facility] [address] [facility] [address] [place] [address] [place] DME request [...] care for your loved ones. For example, childbirth and infant care teacher or elderly care for an older adult? [...] Office Visit Internal Medicine - [facility] [address] [place] [address] Tami Young, GRAEME [address] [place] [address] 12/12/2024 1:00 PM EDT Office Visit Pulmonolgy - [place] [address] [place] [address] Mignon Denis NP [address] [place] [address] 12/23/2024 12:00 PM EDT Ancillary Procedure [facility] [address] [facility] [address] [place] [address] 02/06/2025 3:10 PM EDT Appointment Radiology Department - [address] [address] 03/13/2025 11:00 AM EDT Office Visit Vascular Surgery - [place] [address] [place] [address] Jez Koenig MD [address] [facility] [address] [place] [address] documented as of this encounter Visit Diagnoses Not on filedocumented in this encounter Additional Health Concerns Assessment Noted Time PHQ-9 Depression Total Score: 0 05/27/20 24 6:16 PM EST documented as of this encounter Care Teams Skiing Instructor Relationship Specialty Start Date End Date Geoffrey Velasco MD [address] [place] [address] PCP - General Internal Medicine 04/21/20 documented as of this encounter
== END 2024-09-12 13:59 | disposition home or self-care (01) ==
PROVIDERS: PCP Internal Medicine; Visit Provider Internal Medicine Nephrology
DX: I12.9 Hypertensive chronic kidney disease with stage 1 through stage 4 chronic kidney disease, or unspecified chronic kidney disease (principal); N18.2 Chronic kidney disease, stage 2 (mild)
CPT/HCPCS: 99214

== ENCOUNTER → 2024-09-12 13:28 | Outpatient (BNVA) | payer MEDICARE, OTHER, SELFPAY | PROVIDERS: PCP Internal Medicine; Visit Provider Internal Medicine Nephrology | DX: E11.22 Type 2 diabetes mellitus with diabetic chronic kidney disease (principal); I12.9 Hypertensive chronic kidney disease with stage 1 through stage 4 chronic kidney disease, or unspecified chronic kidney disease; N18.2 Chronic kidney disease, stage 2 (mild) | CPT/HCPCS: 99212 ==

== ENCOUNTER 2024-11-21 13:16 | Outpatient (AMB) | payer MEDICARE, OTHER, SELFPAY ==
[2024-11-21 13:18] VITALS: BMI 35.2
--- NOTE | 2024-11-21 13:18 | A.OFFVIS_ITS ---
Vital Signs 11/21/24 13:18 Height 5 ft 7 in Weight 225 lb BMI 35.2 Intake Visit Reasons: Bilateral knee pain Intake Note: Destiny is a 79 year old female who presents with complaints of bilateral knee pains. She describes her pains as sharp in nature. She has had cortisone injections in the past which gave her fairly good relief. She has tried Tylenol and anti-inflammatory medicines which gave her minimal relief. She wishes to hold off on surgery if at all possible. Allergies Sulfa (Sulfonamide Antibiotics) Allergy (Verified 11/21/24 13:23) Unknown Medication List - Last Reconciled 11/21/24 by Ever Martin MD acetaminophen ER (Tylenol Arthritis Pain) 1,300 mg PO BID albuterol sulfate 90 mcg/actuation inhalation amiloride mg PO aspirin 81 mg PO BID atorvastatin 80 mg PO DAILY coenzyme Q10 (CoQ-10) 100 mg PO DAILY fluticasone propion-salmeterol 115-21 mcg/actuation (Advair HFA) 2 puffs inhalation BID levothyroxine 25 mcg PO DAILY lisinopril 20 mg PO DAILY magnesium oxide 400 mg PO DAILY mirtazapine 15 mg PO BEDTIME multivitamin 1 tab PO DAILY nortriptyline 50 mg PO BEDTIME PRN omega 4-gxz-swu-fish oil 1,000 (120-180) mg (Fish Oil) 1 cap PO BID pen needle, diabetic (BD Ultra-Fine Mini Pen Needle) As directed semaglutide (Ozempic) mg subcut vitamin B complex 1 tab PO DAILY vitamin E mixed units PO BID [facility] Medical History Type 2 diabetes mellitus with renal complication Obstructive sleep apnea Lichen planus of tongue Irritable bowel syndrome Hypersomnia with sleep apnea Hyperlipidemia Hallux valgus of left foot Chronic kidney disease, stage 3a Chronic headache disorder Acquired hypothyroidism Hypertension Surgical History History of knee surgery History of tubal ligation History of appendectomy History of tonsillectomy Family History Father Diabetes Social History Alcohol intake: current Patient Tobacco Use Status: Former Tobacco user Physical Exam Vital Signs: BMI result Body Mass Index 35.2 Const Other: Well-nourished well-developed very friendly female awake alert and oriented x3 in no acute distress Extrem Other: Bilateral lower extremity examination shows good capillary refill, no skin lesions noted, normal sensation light touch Bilateral knee examination shows minimal effusions, palpable crepitus with range of motion, pain with range of motion, no instability Office Procedures AMB Joint Injection/Aspiration Joint Injection/Aspiration Primary Site: left knee Prep: site was prepped using aseptic technique Injected: 40 mg of, DepoMedrol and 1% plain lidocaine Procedure: The patient tolerated the procedure well Coding 18804 - Large joint Procedure code (CPT) selection complete AMB Joint Injection/Aspiration Joint Injection/Aspiration Primary Site: right knee Prep: site was prepped using aseptic technique Injected: 40 mg of, DepoMedrol and 1% plain lidocaine Procedure: The patient tolerated the procedure well Coding 00254 - Large joint Procedure code (CPT) selection complete Results Reviewed Results Reviewed: X-rays of the patient's bilateral knee show joint space narrowing, subchondral sclerosis, no acute bony abnormalities Assessment & Plan Assessment & Plan (1) Arthritis of left knee: Code(s): M17.12 - Unilateral primary osteoarthritis, left knee Category: Medical (2) Arthritis of right knee: Code(s): M17.11 - Unilateral primary osteoarthritis, right knee Category: Medical (3) Pain in both knees: Code(s): M25.561 - Pain in right knee; M25.562 - Pain in left knee Plan Ms. Lundy presents with bilateral knee pains due to degenerative joint disease. The risks and benefits of bilateral knee cortisone injections were discussed at length with the patient. The patient wished to proceed. She tolerated the injections well. She will continue with her home exercise program. She will contact me prior to her follow-up appointment in 3 months should any questions or concerns arise. Feel free to call me at any time should questions regarding her orthopedic management arise. I spent 21 minutes in reviewing the patient's records and imaging studies, seeing the patient and documenting in the medical record. Orders: Orders AMB Joint Injection/Aspiration 11/21/24 M17.12 - Unilateral primary osteoarthritis, left knee AMB Joint Injection/Aspiration 11/21/24 M17.11 - Unilateral primary osteoarthritis, right knee Coding Level of Care Code Est Pt Level 3 (76516) Complex EM visit Add On G2211 Diagnoses Arthritis of left knee M17.12 Arthritis of right knee M17.11 Pain in both knees M25.561; M25.562 CPT Codes Coding - 55481 Large joint: 48595 - Large joint ([id number]) Coding - 61634 Large joint: 94394 - Large joint ([id number])
--- OUTSIDE RECORDS SUMMARY | 2024-11-21 13:51 | XMS_ITS | Data Portability ---
Author Organization [facility] [place] Address [address] [facility] [address] [place] [address] Care Team Providers Care Pulp Mill Team Leader Name Role Phone ABI KELLY Referring Provider ABI KELLY Primary Care Provider Assessment Encounter Date Assessment Date Assessment LastModified [...] examination and x-rays are consistent with advanced unfx-or-rpuz osteoarthritis. After discussion regarding treatment options she [...] view 2023 024 [email or web address] 2 [facility], [address], [place], [address], 4 11:22:24 XR, knee, 4 or more view 2023 024 [email or web address] 2 [facility], [address], [place], [address], 4 11:22:24 XR, knee, 1 or 2 view - Left Knee Pain 2022 023 [facility], [address], [place], [address], 3 12:17:33 XR, knee, 1 or 2 view - Right Knee Pain 2022 023 [facility], [address], [place], [address], 3 12:17:33 XR, knee, weightbeari ng - Bilateral Knee Pain 2022 023 [facility], [address], [place], [address], 3 12:17:33 Medication Orders Marcaine (PF) 0.5 % (5 mg/mL) injection solution [address]/[facility]17, [address], [place], [address], 4 11:14:32 lidocaine (PF) 100 mg/5 mL (2 %) injection syringe [address]/[facility]0517, [address], [place], [address], 4 11:14:32 triamcinolo ne acetonide 40 mg/mL suspension for injection [address], [address], [place], [address], 4 11:14:32 Marcaine (PF) 0.5 % (5 mg/mL) injection solution [address]/[facility]0517, [address], [place], [address], 4 11:14:32 lidocaine (PF) 100 mg/5 mL (2 %) injection syringe [address]/[facility]0517, [address], [place], [address], 4 11:14:32 triamcinolo ne acetonide 40 mg/mL suspension for injection [address]/[facility]0517, [address], [place], [address], 4 11:14:32 Kenalog 40 mg/mL suspension for [...] mg/mL suspension for injection 2022 023 [email or web address] [facility]acy #6131, [address], [place], [address], 4 11:32:00 lidocaine (PF) 10 mg/mL (1 %) injection solution 2022 023 [address], [place], [address], 11:32:03 Kenalog 40 mg/mL suspension for injection 2022 023 [address], [address], [place], [address], 4 11:32:00 lidocaine (PF) 10 mg/mL (1 %) injection solution 2022 023 [address], [address], [place], [address], 11:32:03 Patient TargetsNo targets recorded. Patient Instructions Encounter Date Encounter Id Patient Instructions Last Modified By Organization Details Last Modified Time 11/25/2022 [id number] You have been provided with a cortisone [...] is observed. Not available 11/25/2022 10:35:40 02/23/2023 [id number] You have been provided with a cortisone [...] portal GISELA. Not available 02/24/2023 07:59:38 06/08/2023 [id number] You have been provided with a cortisone [...] portal GISELA. Not available 06/08/2023 12:48:41 09/14/2023 [id number] You have been provided with a cortisone [...] portal GISELA. Not available 09/15/2023 08:46:31 12/28/2023 [id number] {{2 3 4 5 6 7 8* [...] Recorded Time Pain of bilateral knee joints 2265388742759 04 Active 2022 MICHAEL AUGUSTIN PA-C [address], [facility] [place], [address], [place] [facility], [facility] 3 07:59:43 Osteoarthri tis of right knee joint 5184726880323 00 Active 2022 MICHAEL AUGUSTIN PA-C [address], [place], [address], [place] [facility], [facility] 3 10:32:55 Osteoarthri tis of left knee joint 7986198802274 09 Active 2022 MICHAEL AUGUSTIN PA-C [address], [place], [address], [place] [facility] 3 10:33:00 Problem Notes None recorded. Procedures Surgical History Date Name Laterality Status Provider Name and Address Organization Details Recorded Time 4 MJG Knee injection w/US completed MICHAEL ROBERT PA-C [address], [place], [address], [place] [facility] P 12/28/2023 11:11:46 4 Knee Joint/Bursa Asp & Inj completed MIHCAEL AUGUSTIN PA-C [address], [place], [address], [place] [facility] 09/15/2023 08:46:31 3 Knee Joint/Bursa Asp & Inj completed MICHAEL AUGUSTIN PA-C [address], [place], [address], [place] [facility] 06/08/2023 12:48:41 3 Knee Joint/Bursa Asp & Inj completed MICHAEL AUGUSTIN PA-C [address], [place], [address], [place] [facility] 02/24/2023 07:59:38 3 Knee Joint/Bursa Asp & Inj completed MICHAEL AUGUSTIN PA-C [address], [place], [address], [place] [facility] 11/25/2022 10:32:45 Imaging Results None recorded. Procedure Notes None recorded. Medical Equipment None Reported. Allergies Allergen ID Allergen Name Allergen Category Reaction Reaction Severity Criticality Documentation Date Start Date Code Code System Note Provider Name and Address Organization Details Recorded Time 28964 Substance with sulfonami de structure and antibacte rial mechanism of action (substanc e) medicatio n Not available Not available Not available 06/08/2023 81710 8003 SNOMED [facility], [place] [facility] 3 13:05:26 Medications Name Sig Start [...] SNOMED-CT Code Diagnosis ICD10 Code Diagnosis Note [id number] GUERRERO BLACK [facility] [address] [address] 11/25/2022 10:01:15 11/25/2022 10:39:21 Pain of bilateral knee joints 8268416206 50223 M25.561 M25.562 Osteoarthr itis of right knee joint 3002610200 M17.11 Osteoarthr itis of left knee joint 9445179290 83775 M17.12 [id number] GUERRERO BLACK [facility] [address] [address] 02/23/2023 12:55:08 02/23/2023 13:29:47 Osteoarthritis of right knee joint 5066839168 M17.11 Osteoarthr itis of left knee joint 6974510159 15494 M17.12 Pain of bi lateral knee joints 7153330179 08719 M25.561 M25.562 [id number] GUERRERO BLACK [facility] [address] [address] 06/08/2023 12:47:14 06/08/2023 13:30:34 Osteoarthritis of right knee joint 2092840040 M17.11 Osteoarthr itis of left knee joint 8960795971 11820 M17.12 Pain of bi lateral knee joints 5363522713 80650 M25.561 M25.562 [id number] GUERRERO BLACK [facility] [address] [address] 09/14/2023 11:29:49 09/14/2023 11:50:47 Osteoarthritis of left knee joint 8623797207 M17.12 Osteoarthr itis of right knee joint 4014408252 19921 M17.11 Pain of bi lateral knee joints 7778395928 78482 M25.561 M25.562 [id number] GUERRERO SMALL [facility] [address] [facility] [address] [place] [address] 12/28/2023 10:35:48 12/28/2023 11:22:24 Pain of right knee joint 6802964377 11364 M25.561 Additional diagnosis detail: Pain in joint of right knee Pain of le ft knee joint 1899672322 24768 M25.562 Additional diagnosis detail: Pain in joint of left knee Osteoarthr itis of right knee joint 0226418724 62562 M17.11 Osteoarthr itis of left knee joint 8707494588 44424 M17.12 Health Concerns Section Related Observation LastModified by Organization Detai ls LastModified Time None Recorded Concern Status LastModified by Organization Details LastModified Time None Recorded Advance Directives Directive None Recorded Payers Encounter Date Sequence Insurance Name Policy Number Policy Harman Covered Member ID Harman Member ID Guarantor Name 11/25/2022 1 [place] [employer] Destiny A Papirio [id number] Destiny Papirio 11/25/2022 2 [facility] 1 (MEDICARE SUPPLEMENT) [id number] Destiny A Papirio [id number] Destiny Papirio 02/23/2023 1 [place] [employer] Destiny A Papirio [id number] Destiny Papirio 02/23/2023 2 [facility] 1 (MEDICARE SUPPLEMENT) [id number] Destiny A Papirio [id number] Destiny Papirio 06/08/2023 1 [place] [employer] Destiny A Papirio [id number] Destiny Papirio 06/08/2023 2 [facility] 1 (MEDICARE SUPPLEMENT) [id number] Destiny A Papirio [id number] Destiny Papirio 09/14/2023 1 [facility] Destiny A Papirio [id number] Destiny Papirio 09/14/2023 2 [facility] 1 (MEDICARE SUPPLEMENT) [id number] 1 Destiny A Papirio [id number] Destiny Lundy 12/28/2023 1 [place] [facility] Destiny Lundy [id number] Destiny Lundy 12/28/2023 2 [facility] 1 (MEDICARE SUPPLEMENT) [id number] 1 Destiny Delatorreo [id number] Destiny Lundy Notes Date Note Type Note [...] at this time. MICHAEL AUGUSTIN PA-C [address] [facility],[address], [address], [place] [facility] 11/25/2022 10:36:26 02/23/2023 text/html This is a 77-year-old female last seen on 11/25/2022 for which she had cortisone injections which gave her good satisfactory relief. She states this gives her approximately 3 months of relief however her symptoms have started to return of medial joint space pain. She takes lkpj-vrv-vqttoqx pain medication which gives her some relief. Denies swelling denies fevers or chills here for evaluation and treatment. MICHAEL AUGUSTIN PA-C [address] [facility],[address], [address], [place] [facility] 02/24/2023 08:02:14 06/08/2023 text/html This is a 77-year-old female last seen on 02/23/2023 for which she had cortisone injections which gave her good satisfactory relief. She states this gives her approximately 3 months of relief however her symptoms have started to return of medial/generalized bilateral joint space pain. She takes ylbi-waw-awgjbgx pain medication which gives her some relief. Denies swelling denies fevers or chills here for evaluation and treatment. MICHAEL AUGUSTIN PA-C [address] [facility],[address] [facility], [place], [address], [place] [facility] 06/08/2023 13:30:46 09/14/2023 text/html This is a 77-year-old female last seen on 06/08/2023 for which she had cortisone injections which gave her good satisfactory relief. She states this gives her approximately 3 months of relief however her symptoms have started to return of medial/generalized bilateral joint space pain. She takes ruvc-qsb-qyuzwad pain medication which gives her some relief. Denies swelling denies fevers or chills here for evaluation and treatment. MICHAEL AUGUSTIN PA-C [address] [address], [place], [address], [facility] P 09/15/2023 13:26:31 12/28/2023 text/html 78-year-old fema [...] good surgical candidate. MICHAEL ROBERT PA-C [address] [address], [place], [address], [facility] - [facility], P 12/28/2023 11:14:25 OBGyn Episode No OBEpisode recorded.
--- OUTSIDE RECORDS SUMMARY | 2024-11-21 13:51 | XMS_ITS | Clinical Summary ---
Author Organization [facility] Address [address] [facility] [address] [place] [address] Phone Care Team Providers Care Radiologist Name Role Phone ElissarosarioGeoffrey doran Primary Care Provider [phone] Allergies Active Allergy Reactions Criticality Noted Date [...] A1C 05/18/2023 02/15/2023, 11/0 02/2022 Influenza Vaccine (Season Ended) 2025 05/17/2022, 02/22/2020, 03/30/2019, Additional history exists Hepatitis B Vaccine Aged Out 09/09/2008, 10/13/2001, 09/18/2001 No longer eligible based on patient's age to complete this topic Pneumococcal Vaccine: 50+ Years Completed 10/06/2015, 03/13/2013 Insurance Medicare [facility] Medicare [facility] Care Teams Radiologist Relationship Specialty Start Date End Date Geoffrey Dooley [address] [place] [address] PCP - General Internal Medicine 03/28/23
--- OUTSIDE RECORDS SUMMARY | 2024-11-21 13:51 | XMS_ITS | Clinical Summary ---
Author Organization [facility] Address [address] [place] [address] Care Team Providers Care Field Organizer Name Role Phone Vy France MD Primary Care Provider [phone] Allergies Active Allergy Reactions Criticality Noted Date [...] emulsion Apply to eye. 0 Ac tive [place]-3 Fatty Acids (FISH OIL PO) by Does [...] age to complete this topic Care Teams Field Organizer Relationship Specialty Start Date End Date Vy France MD PCP - General Internal Medicine 02/27/17
--- OUTSIDE RECORDS SUMMARY | 2024-11-21 13:51 | XMS_ITS | Clinical Summary ---
Author Organization 175 [facility] Address [address] [place] [address] Phone Care Team Providers Care Licensed Physical Therapist Name Role Phone Geoffrey Velasco MD Primary Care Provider [phone] Allergies Active Allergy Reactions Criticality Noted Date Comments Sulfa (Sulfonamide Antibiotics) Hives 10/2004 Medications Pen Needle 31 gauge x 09/22 needle 1 each by Not Applicable route. [...] Active medical supply, miscellaneous (MISCELLANEOUS MEDICAL SUPPLY MISC) 8 cm at bedtime. Nasal pillows/ [employer] Active calcium carbonate/vitami n D3 (CALCIUM + D ORAL) Active vitamin E acetate (VITAMIN E ORAL) daily Active MULTIVITAMIN ORAL None Entered Active albuterol HFA (PROAIR HFA ; PROVENTIL HFA ; VENTOLIN HFA) 90 mcg/actuation inhalerIndicatio ns:Obstructive sleep apnea (adult) (pediatric),Mild intermittent asthma, uncomplicated INHALE 2 PUFFS BY MOUTH EVERY 4 HOURS NEEDED FOR WHEEZE OR FOR SHORTNESS OF BREATH 8.5 each 3 06/05/20 24 Active Ozempic 0.25 mg or 0.5 mg (2 mg/3 mL) injection penIndications:T ype 2 diabetes mellitus without complication, without long-term current use of insulin ([facility] V24, [facility] V28) Inject 0.5 mg under the skin every 7 (seven) days. 9 mL 1 07/02/20 24 Active mirtazapine (REMERON) 7.5 mg tabletIndication s:Psychophysiolo gic insomnia TAKE 1 TABLET BY MOUTH EVERYDAY AT BEDTIME 90 tablet 1 07/22/19 25 Active lisinopriL (PRINIVIL,ZESTRI L) 20 mg tabletIndication s:Essential (primary) hypertension,Chr onic kidney disease, stage 3 unspecified ([facility] V24, [facility] V28) TAKE 1 TABLET BY MOUTH EVERY DAY 90 tablet 1 08/16/19 25 Active aMILoride (MIDAMOR) 5 mg tablet TAKE 0.5 TABLETS BY MOUTH 1 TIME EACH DAY. 45 tablet 09/17/19 25 Active atorvastatin (LIPITOR) 80 mg tabletIndication s:Type 2 diabetes mellitus with diabetic chronic kidney disease ([facility] V24, [facility] V28) TAKE 1 TABLET BY MOUTH EVERY DAY 90 tablet 10/05/19 25 Active nortriptyline (PAMELOR) 50 mg capsuleIndicatio ns:Headache, unspecified TAKE 1 CAPSULE BY MOUTH EVERYDAY AT BEDTIME 90 capsule 10/05/19 25 Active polyethylene glycol (PEG) 17 gram/dose oral powder DISSOLVE 17 GRAMS IN 8 OZ OF FLUID LIQUID DRINK DAILY DIRECTED 238 g 10/05/19 25 Active levothyroxine (SYNTHROID, LEVOTHROID) 25 mcg tabletIndication s:Hypothyroidism , unspecified TAKE 1 TABLET BY MOUTH EVERY DAY 90 tablet 1 10/15/19 25 Active Advair HFA 230-21 mcg/actuation inhalerIndicatio ns:Mild persistent asthma, uncomplicated INHALE 2 PUFFS BY MOUTH TWICE A DAY *RINSE MOUTH AFTER USE* 12 each 5 11/15/19 25 Active fluticasone propion-salmeter oL (ADVAIR HFA) 230-21 mcg/actuation inhaler Inhale 2 puffs by mouth 2 (two) times a day. Rinse mouth with water after use to reduce aftertaste and incidence of candidiasis. Do not swallow. 025 Discontinued Active Problems Problem Noted Date [...] apnea syndrome 09/25/2020 Type 2 diabetes mellitus ([facility] V24, [facility] V 28) 07/09/2020 DM (diabetes mellitus), type 2 with renal complications ([facility] V24, [facility] V28) 07/09/2020 Assessment & Plan (05/28/2024 6:06 PM EST): Diabetic diet discussed. Will monitor A1c. Continue current regimen of Ozempic. Patient is on an RADHA inhibitor for microalbuminuria. Orders: Hemoglobin A1c; Future Hallux valgus of left foot 12/03/2019 Osteoarthritis of knee 07/12/2017 Overview (04/16/2024): DJD (degenerative joint disease) of knee Bilateral Supartz injections by Dr Martin 06/27/17 Bilateral Supartz injections by Dr Matrin 06/27/17 Acquired hypothyroidism 12/01/2016 Assessment & Plan (05/28/2024 6:06 PM EST): Continue regimen of levothyroxine. CKD (chronic kidney disease) stage 3, GFR 30-59 ml/min (CMS/HCC V24, CMS/HCC V28) 02/25/2014 Overview (09/13/2023): Assessment & Plan (05/28/2024 6:06 PM EST): She does follow-up nephrology. Patient avoid NSAIDs. Will monitor creatinine routinely. IBS (irritable bowel syndrome) 06/15/2011 Overview (09/13/2023): Alt c/d, onset age 22. Alt c/d, onset age 22. Chronic headache disorder 06/15/2011 Lichen planus 12/24/2008 Overview (04/16/2024): left tongue Hypertensive retinopathy 12/24/2008 Overview (04/16/2024): stage II Severe obesity (CMS/HCC V24, CMS/HCC V28) 2007 Overview (04/16/2024): (BMI 35.0-39.9) with comorbidity (HCC) Hypertension 04/12/2005 Overview (09/13/2023): Last Assessment & Plan: Control reasonably well. Assessment & Plan (05/28/2024 6:06 PM EST): Patient follow sodium diet. Continue current regimen of amiloride, lisinopril. Hypersomnia with sleep apnea 04/12/2005 Overview (04/16/2024): HYPERSOMNIA W SLEEP APNEA NOS [place] update IMO update Hyperlipidemia 04/12/2005 Overview (09/13/2023): Last Assessment & Plan: LDL at target. Triglycerides slightly elevated. Continue current regimen. Assessment & Plan (05/28/2024 6:06 PM EST): Follow low-cholesterol diet. Continue atorvastatin. Encounters Date Type Department Care Team Description 10/22/2024 Telephone Internal Medicine - [address] [phone] Diana Mcmahon RN Medicare Annual Wellness Visit Subsequent 10/04/2024 4:00 PM EDT Lab Draw [address] Type 2 diabetes mellitus without complication, without long-term current use of insulin ([facility] V24, [facility] V28) (Primary Dx); Hyperlipidemia, unspecified hyperlipidemia type; Screening for metabolic disorder 10/04/2024 3:00 PM EDT Office Visit Internal Medicine [address] [phone] Tami Young NP Hypertensive retinopathy, unspecified laterality (Primary Dx); Type 2 diabetes mellitus without complication, without long-term current use of insulin ([facility] V24, [facility] V28); Chronic intractable headache, unspecified headache type; CPAP (continuous positive airway pressure) dependence; Obstructive sleep apnea syndrome; Dyspnea, unspecified type; Hypertension, unspecified type; Severe obesity ([facility] V24, [facility] V28); Irritable bowel syndrome with both constipation and diarrhea; Type 2 diabetes mellitus with diabetic microalbuminuria, without long-term current use of insulin ([facility] V24, [facility] V28); Stage 3 chronic kidney disease, unspecified whether stage 3a or 3b CKD ([facility] V24, [facility] V28); Osteoarthritis of both knees, unspecified osteoarthritis type; Hyperlipidemia, unspecified hyperlipidemia type; Acquired hypothyroidism; Screening for metabolic disorder from Last 3 Months Immunizations Name Administration Dates Next Due H1N1 Inj Preservative Free 06/26/2009 Hepatitis A Adult (Havrix; V aqta) 19yo and older 09/18/2001 Hepatitis A Pediatric (Havri x; Vaqta) 12mo to less than 19yo 09/03/2008 Hepatitis B (Xxiluwu-W-Vsegb , Recombivax HB-Adult) 19yo and older 09/09/2008,10/13/2001,09/18/2001 [...] OTHER SURGICAL HISTORY left lateral 10/16 PROCEDURE: TN BIOPSY TONGUE ANTERIOR TWO-THIRDS; COMMENT: Leukoplakia, 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 Also sees Dr. Ulloa ANKLE FRACTURE SURGERY 05/03/2009 Left PROCEDURE: TN OPEN TREATMENT MEDIAL MALLEOLUS FRACTURE; COMMENT: trimalleolar ORIF TUBAL LIGATION PROCEDURE: HISTORICAL TUBAL LIGATION COLONOSCOPY 11/05/2003 PROCEDURE: HISTORICAL COLONOSCOPY; COMMENT: good for 10 yrs. OTHER SURGICAL HISTORY 01/28/2014 PROCEDURE: COLON CA SCRN NOT HI RSK IND; COMMENT: tics; completed to hepatic flexure; would not repeat OTHER SURGICAL HISTORY 01/09/2024 PROCEDURE: TN SLCTV CATH CAROTID/INNOM ART ANGIO INTRCRANL ART OTHER SURGICAL HISTORY 01/09/2024 Bilateral PROCEDURE: TN SLCTV CATH SUBCLAVIAN ART ANGIO VERTEBRAL ARTERY [...] atypical Diet-controlled type 2 diabe gayla mellitus ([facility] V24, [facility] V28) 10/07/2015 DX:Diet-controlled type 2 diabetes mellitus (HCC) Acquired hypothyroidism 12/01/2016 DX:Acqui red hypothyroidism Severe obesity (BMI 35.0-39. 9) with comorbidity ([facility] V24, [facility] V28) 11/28/2007 DX:Severe obesity (BMI 35.0- 39.9) with comorbidity ([facility]) DM type 2 causing eye diseas e ([facility] V24, [facility] V28) 10/07/2015 DX:DM type 2 causing eye di sease (HCC) DM (diabetes mellitus), type 2 with renal complications ([facility] V24, [facility] V28) 07/09/2020 DX:DM (diabetes mellitus), t ype 2 with renal complications ([facility]) 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 For example, child care associate teacher or elderly care for an older [...] is your living situation? 1 07/27/2023 Comments No Sex and Gender Information Value Date Recorded Sex Assigned at Not on file Legal Sex Female 2:35 AM EST Gender Identity Not on file Sexual Orientation Not on file Obstetrics History Last Filed Vital Signs Vital Sign Reading Time Taken Comments Blood Pressure 116/69 10/04/2024 4:37 PM EDT Pulse 83 10/04/2024 4:37 PM EDT Temperature 37.1 ??C (98.8 ??F) 10/04/2024 3:12 PM ED T Respiratory Rate 16 08/09/2024 11:22 AM EST Oxygen Saturation 98% 08/09/2024 11:22 AM EST Inhaled Oxygen Concentration - - Weight 103 kg (227 lb 6.4 oz) 10/04/2024 3:12 PM EDT Height 170.2 cm (5' 7 ) 08/09/2024 11:22 AM EST Body Mass Index 35.62 08/09/2024 11:22 AM EST Plan of Treatment Upcoming Encounters Date Type Department Care Team (Late st Contact Info) Description 12/12/2024 1:00 PM EDT Office Visit Pulmonolgy - [place] [address] [facility] [address] [place] [phone] Mignon Denis, GRAEME [address] [facility] [address] [place] [address] 12/23/2024 12:00 PM EDT Ancillary Procedure [facility] - [facility] [address] [facility] [address] [place] [address] 02/06/2025 3:10 PM EDT Appointment Radiology Department [address] [phone] 03/13/2025 11:00 AM EDT Office Visit Vascular Surgery - [place] [address] [place] [address] Jez Koenig MD 300 [facility] [address] [place] [address] 04/04/2025 2:30 PM EDT Office Visit Internal Medicine - [facility] [address] [place] [address] Tami Young, GRAEME [address] [place] [address] Health Maintenance Due Date Last Done Comments IPV Vaccines (2 of 3 - Adult catch-up series) 10/01/2008 09/03/2008, 09/03/2008 Osteoporosis Screening (Bone Density Screening) 11/27/2023 11/26/2018 COVID-19 Vaccine (3 - Pfizer risk series) 04/04/2024 03/07/2024, 03/30/2023, 12/02/2022, Additional history exists Medicare Annual Wellness Visit 05/16/2024 05/16/2023 Diabetes: Annual Foot Exam 05/17/202405/17, 05/17/2022, 05/17/2022, Additional history exists Diabetes: Annual Urine Albumin-Creatinine Ratio (uACR) 01/24/2025 01/25/2024, 11/10/2022 Diabetes: Blood Sugar Control Test (HGBA1C) 04/06/2025 10/04/2024, 05/28/2024, 01/25/2024, Additional history exists Social Influencers of Health Screening 05/27/2025 05/27/2024 Depression Screening 09/27/2025 09/27/2024, 05/16/2023, 05/16/2023 Diabetes: Annual GFR (Glomerular Filtration Rate) 10/04/2025 10/04/2024, 08/23/2024, 02/06/2024, Additional history exists Falls Risk Assessment 10/04/2025 10/04/2024, 023 Hypertension/CHF/CAD Annual BMP Blood Test 10/04/2025 10/04/2024, 08/23/2024, 02/06/2024, Additional history exists Diabetes: Annual Retina Eye Exam 10/15/2025 10/15/2024, 10/09/2023, 11/08/2022 DTaP,Tdap,and Td Vaccines (4 - Td or Tdap) 11/02/2028 11/02/2018, 09/09/2008, 07/24/1998 Cholesterol Screening (Lipid Panel) 10/04/2029 10/04/2024, 01/25/2024, 01/25/2024, Additional history exists Colorectal Cancer Screening: Colonoscopy Discontinued 11/05/2003 Hepatitis [...] , 03/30/2023, Additional history exists RSV Immunization Adult Patients Completed 05/09/2024 HIB Vaccines Aged Out No [...] age to complete this topic Meningococcal B Vaccine Aged Out No l onger eligible based on patient's age to complete this topic RSV Immunization Patients Under 20 months Aged Out No longer eligible based on patient's age to complete this topic Varicella Vaccines Aged Out No longer eligible based on patient's age to complete this topic Procedures Procedure Name Priority Date/Time Associated Diagnosis Comments EXTERNAL DIABETIC RETINA EYE EXAM 10/15/2024 HEMOGLOBIN A1C Routine 10/04/2024 4:27 PM EDT Type 2 diabetes mellitus without complication, without long-term current use of insulin ([facility] V24, [facility] V28) COMPREHENSIVE METABOLIC PANEL Routine 10/04/2024 4:27 PM EDT Screening for metabolic disorder MAGNESIUM Routine 10/04/2024 4:27 PM EDT Hyperlipidemia, unspecified hyperlipidemia type Screening for metabolic disorder LIPID PANEL WITH REFLEX TO DIRECT LDL Routine 10/04/2024 4:27 PM EDT Type 2 diabetes mellitus without complication, without long-term current use of insulin (CMS/HCC V24, CMS/HCC V28) HM URINE ALBUMIN CREATININE RATIO Routine 01/25/2024 HM DEPRESSION SCREENING Routine 05/16/2023 HM HEPATITIS C SCREENING Routine 06/09/2022 DEBORAH SCREENING DIGITAL Routine 11/18/2021 6:52 PM EDT Encounter for screening mammogram for malignant neoplasm of breast DXA BONE DENSITY STUDY 1+ SITS AXIAL SKEL Routine 11/26/2018 3:53 PM EDT Asymptomatic menopausal state from Last 3 Months or Most Recently Relevant to Health Maintenance Results * External Diabetic Retina Eye Exam Report (10/15/2024) Anatomical Region Laterality Modality Ultrasound us Provider [facility] US PROCEDURES Final Result * (ABNORMAL) Lipid panel with reflex to direct LDL (10/04/2024 4:27 PM EDT) Cholesterol 181 0 - 200 mg/dL LAB CHEMISTRY METHOD 10/04/2024 7:00 PM EDT [facility] Triglycerides 153(H) 0 - 150 mg/dL LAB CHEMISTRY METHOD 10/04/2024 7:00 PM EDT [facility] HDL 68 >=40 mg/dL LAB CHEMISTRY METHOD 10/04/2024 7:00 PM EDT [facility] LDL Calculated 82 0 - 100 mg/dL LAB CHEMISTRY METHOD 10/04/2024 7:00 PM EDT [facility] VLDL Cholesterol Romaine 30.6 mg/dL LAB CHEMISTRY METHOD 10/04/2024 7:00 PM EDT [facility] Non HDL Chol. (LDL+VLDL) 113 <145 mg/dL LAB CHEMISTRY METHOD 10/04/2024 7:00 PM EDT [facility] Chol/HDL Ratio 2.7 0.0 - 4.4 LAB CHEMISTRY METHOD 10/04/2024 7:00 PM EDT [facility] Blood Venous blood specimen / Unknown Venipuncture / Unknown 10/04/2024 4:27 PM EDT 10/04/2024 4:27 PM EDT Tami Angeles NP LAB BLOOD ORDERABLES Final R esult Performing Organization Address City/[facility]/ZIP Co de Phone Number [facility] [address] [place] [address], [place] [phone] * Magnesium (10/04/2024 4:27 PM EDT) Magnesium 2.2 1.9 - 2.6 mg/dL LAB CHEMISTRY METHOD 10/04/2024 6:58 PM EDT [facility] Blood Venous blood specimen / Unknown Venipuncture / Unknown 10/04/2024 4:27 PM EDT 10/04/2024 4:27 PM EDT Tami Angeles LODGING MANAGER LAB BLOOD ORDERABLES Final R esult [facility] [address] [place] [address], * Hemoglobin A1c (10/04/2024 4:27 PM EDT) Hemoglobin A1C 6.4 <6.5 % LAB CHEMISTRY METHOD 10/04/2024 8:20 PM EDT [facility] Mean Bld Glu Estim. 137 mg/dL LAB CHEMISTRY METHOD 10/04/2024 8:20 PM [facility] Blood Venous blood specimen / Unknown Venipuncture / Unknown 10/04/2024 4:27 PM EDT 10/04/2024 4:27 PM EDT us Tami Angeles LODGING MANAGER LAB BLOOD ORDERABLES Final R esult [facility] [address] [place] [address], [place] [phone] * Comprehensive metabolic panel (10/04/2024 4:27 PM EDT) Sodium 139 133 - 145 mmol/L LAB CHEMISTRY METHOD 10/04/2024 7:00 PM [facility] Potassium 4.7 3.5 - 5.5 mmol/L LAB CHEMISTRY METHOD 10/04/2024 7:00 PM [facility] Chloride 105 96 - 110 mmol/L LAB CHEMISTRY METHOD 10/04/2024 7:00 PM [facility] CO2 25 21 - 32 mmol/L LAB CHEMISTRY METHOD 10/04/2024 7:00 PM [facility] Anion Gap 9 3 - 11 LAB CHEMISTRY METHOD 10/04/2024 7:00 PM [facility] Glucose 94 70 - 100 mg/dL LAB CHEMISTRY METHOD 10/04/2024 7:00 PM [facility] BUN 25 5 - 25 mg/dL LAB CHEMISTRY METHOD 10/04/2024 7:00 PM [facility] Creatinine 0.88 0.50 - 1.10 mg/dL LAB CHEMISTRY METHOD 10/04/2024 7:00 PM [facility] eGFR 68 >=60 mL/min/1. 73m2 LAB CHEMISTRY METHOD 10/04/2024 7:00 PM EDT [facility] Comment:Calculation based on the??Chronic Kidney Disease Epidemiology Collaboration (CKD-EPI) equation refit??without adjustment for race. BUN/Creatinine Ratio 28.4 LAB CHEMISTRY METHOD 10/04/2024 7:00 PM [facility] Calcium 10.0 8.5 - 10.5 mg/dL LAB CHEMISTRY METHOD 10/04/2024 7:00 PM [facility] AST (SGOT) 24 10 - 42 unit/L LAB CHEMISTRY METHOD 10/04/2024 7:00 PM [facility] ALT (SGPT) 36 10 - 60 unit/L LAB CHEMISTRY METHOD 10/04/2024 7:00 PM [facility] Alkaline Phosphatase 118 42 - 121 unit/L LAB CHEMISTRY METHOD 10/04/2024 7:00 PM [facility] Total Protein 7.0 6.0 - 8.0 g/dL LAB CHEMISTRY METHOD 10/04/2024 7:00 PM [facility] Albumin 4.1 3.2 - 5.0 g/dL LAB CHEMISTRY METHOD 10/04/2024 7:00 PM [facility] Total Bilirubin 1.1 0.0 - 1.4 mg/dL LAB CHEMISTRY METHOD 10/04/2024 7:00 PM [facility] Blood Venous blood specimen / Unknown Venipuncture / Unknown 10/04/2024 4:27 PM EDT 10/04/2024 4:27 PM EDT Tami Angeles LODGING MANAGER LAB BLOOD ORDERABLES Final R esult [facility] [address] [place] [address], [place] [phone] * Urine Albumin Creatinine Ratio (01/25/2024) Urine Albumin Creatinine Ratio Abstracted Historical Provider HEALTH MAINTENANCE Final Result * Depression Screening (05/16/2023) Depression Screening Abstracted us Historical Provider HEALTH MAINTENANCE Final Result * Hepatitis C Screening (06/09/2022) Hepatitis C Screening Abstracted us Historical Provider HEALTH MAINTENANCE Final Result * DEBORAH SCREENING DIGITAL (11/18/2021 6:52 PM EDT) Anatomical Region Laterality Modality Mammography 11/18/2021 2:08 PM EDT Narrative 11/18/2021 6:52 PM EDT [facility] Diagnostic Imaging Department [address] [place] [address] [phone] Patient: ??DESTINY LUNDY ?/Age/Sex: 1945 - 76 - F Unit#: ??[id number] ? Location/Status: ??SPDIMAM/REG CLI ? Mnemonic/Ordering Site: ??DIGSC/SPMAM Ordering Physician: ??SHEILA AGUILAR LODGING MANAGER Deborah Screening Digital - 11/18/21 - 1445 History: Bilateral breast cancer screening. Technique: Digital mammography. Conventional CC and MLO projections with tomosynthesis MLO views and computer aided detection. Comparison: 06/12/2020 through 01/04/2017. Findings: ??Breast tissue consists of a combination of fatty and fibroglandular elements (category b density) (as calculated by [employer] software). There are benign calcifications and stable asymmetries bilaterally. ??No suspicious group of calcification, architectural distortion, suspicious mass or suspicious asymmetry. Impression: ??No evidence of malignancy. BIRADS Category 2, benign findings, 3342F [id number], 37034 Note: Patient information entered into a reminder system with a target due date for the next mammogram: ??CPT II 7025F Dictating Physician: ??BIJAN YOU MD Electronically Signed by: ??BIJAN YOU MD Dic Date/Time: ??11/18/211849 Sign date/Time: ??11/18/211851 Procedure Note Bijan You MD - 06/29/2022 [facility] Diagnostic Imaging Department [address] [place] [id number] Patient: RUDOLPHLATONIADESTINY /Age/Sex: 1945 - 76 - F Unit#: [id number] Location/Status: [facility] Mnemonic/Ordering Site: [facility] Ordering Physician: SHEILA AGUILAR LODGING MANAGER Deborah Screening Digital - 11/18/21 - 3771 History: Bilateral breast cancer screening. Technique: Digital mammography. Conventional CC and MLO projections with tomosynthesis MLO views and computer aided detection. Comparison: 06/12/2020 through 01/04/2017. Findings: Breast tissue consists of a combination of fatty andfibroglandular elements (category b density) (as calculated by [employer] software).There are benign calcifications and stable asymmetries bilaterally. Nosuspicious group of calcification, architectural distortion, suspicious mass orsuspicious asymmetry. Impression: No evidence of malignancy. BIRADS Category 2, benign findings, 3342F [id number], 85044 Note: Patient information entered into a reminder system with a target duedate for the next mammogram: CPT II 7025F Dictating Physician: BIJAN YOU MD Electronically Signed by: BIJAN YOU MD Dic Date/Time: 11/18/211849 Sign date/Time: 11/18/211851 us Sheila Augilar LODGING MANAGER IMG BI PROCEDURES Final Result * DXA [...] (World Health Organization Fracture Risk Assessment) [facility] Department of Internal Medicine recommends using National [...] (World Health Organization Fracture Risk Assessment) [facility] Department of Internal Medicine recommendsusing National Osteoporosis [...] fracture risk by FRAX. Vy France MD IM DXA PROCEDURES Final Re sult from Last 3 Months or Most Recently Relevant to Health Maintenance Insurance MEDICARE [facility] [address] [place] [address] Care Teams Licensed Physical Therapist Relationship Specialty Start Date End Date Geoffrey Velasco MD [address] [place] [address] [phone] PCP - General Internal Medicine 04/21/20
== END 2024-11-21 13:53 | disposition home or self-care (01) ==
LOC: HO.HOS 13:17
PROVIDERS: PCP Internal Medicine; Visit Provider Orthopaedic Surgery
DX: M17.0 Bilateral primary osteoarthritis of knee (principal); M25.561 Pain in right knee; M25.562 Pain in left knee
CPT/HCPCS: 20610; 99213

== ENCOUNTER → 2024-11-21 13:16 | Outpatient (BNVA) | payer MEDICARE, OTHER, SELFPAY | PROVIDERS: PCP Internal Medicine; Visit Provider Orthopaedic Surgery | DX: M17.0 Bilateral primary osteoarthritis of knee (principal) | CPT/HCPCS: 20610; 99212; J1010; J2003 ==

== ENCOUNTER 2025-02-20 13:32 | Outpatient (AMB) | payer MEDICARE, OTHER, SELFPAY ==
--- NOTE | 2025-02-20 13:34 | A.OFFVIS_ITS ---
Vital Signs 02/20/25 13:36 Height 5 ft 7 in Weight 225 lb BMI 35.2 Intake Visit Reasons: inj-B/L knee injection-last inj 11/21/24 Intake Note: Destiny is a 79 year old female who presents with complaints of bilateral knee pains. She describes her pains as sharp in nature. She has had cortisone injections in the past which gave her fairly good relief. She has tried Tylenol which gives only mild relief. She is not able to take anti-inflammatory medicines because of kidney disease. She wishes to hold off on surgery if at all possible. Allergies Sulfa (Sulfonamide Antibiotics) Allergy (Verified 02/20/25 13:38) Unknown Medication List - Last Reconciled 02/20/25 by Ever Martin MD acetaminophen ER (Tylenol Arthritis Pain) 1,300 mg PO BID albuterol sulfate 90 mcg/actuation inhalation amiloride mg PO aspirin 81 mg PO BID atorvastatin 80 mg PO DAILY coenzyme Q10 (CoQ-10) 100 mg PO DAILY fluticasone propion-salmeterol 115-21 mcg/actuation (Advair HFA) 2 puffs inhalation BID levothyroxine 25 mcg PO DAILY lisinopril 20 mg PO DAILY magnesium oxide 400 mg PO DAILY mirtazapine 15 mg PO BEDTIME multivitamin 1 tab PO DAILY nortriptyline 50 mg PO BEDTIME PRN omega 4-szc-zry-fish oil 1,000 (120-180) mg (Fish Oil) 1 cap PO BID pen needle, diabetic (BD Ultra-Fine Mini Pen Needle) As directed semaglutide (Ozempic) mg subcut vitamin B complex 1 tab PO DAILY vitamin E mixed units PO BID [facility] Medical History Type 2 diabetes mellitus with renal complication Obstructive sleep apnea Lichen planus of tongue Irritable bowel syndrome Hypersomnia with sleep apnea Hyperlipidemia Hallux valgus of left foot Chronic kidney disease, stage 3a Chronic headache disorder Acquired hypothyroidism Hypertension Surgical History History of knee surgery History of tubal ligation History of appendectomy History of tonsillectomy Family History Father Diabetes Social History (Reviewed 02/20/25 @ 13:38 by OLI Amos Alcohol intake: current Patient Tobacco Use Status: Former Tobacco user Physical Exam Vital Signs: BMI result Body Mass Index 35.2 Const Other: Well-nourished well-developed very friendly female awake alert and oriented x3 in no acute distress Extrem Other: Bilateral lower extremity examination shows good capillary refill, no skin lesions noted, normal sensation light touch Bilateral knee examination shows minimal effusions, palpable crepitus with range of motion, pain with range of motion, no instability Office Procedures AMB Joint Injection/Aspiration Joint Injection/Aspiration Primary Site: left knee Prep: site was prepped using aseptic technique Injected: 40 mg of, DepoMedrol and 1% plain lidocaine Procedure: The patient tolerated the procedure well Coding - Large joint Procedure code (CPT) selection complete AMB Joint Injection/Aspiration Joint Injection/Aspiration Primary Site: right knee Prep: site was prepped using aseptic technique Injected: 40 mg of, DepoMedrol and 1% plain lidocaine Procedure: The patient tolerated the procedure well Coding - Large joint Procedure code (CPT) selection complete Assessment & Plan Assessment & Plan (1) Arthritis of left knee: Code(s): M17.12 - Unilateral primary osteoarthritis, left knee Category: Medical (2) Arthritis of right knee: Code(s): M17.11 - Unilateral primary osteoarthritis, right knee Category: Medical Plan Ms. Lundy presents with bilateral knee pains due to osteoarthritis. The risks and benefits of bilateral knee cortisone injections were discussed at length with the patient. The patient wished to proceed. She tolerated the injections well. She will continue with her home exercise program. She will contact me prior to her follow-up appointment in 3 months should any questions or concerns arise. Feel free to call me at any time should questions regarding her orthopedic management arise. I spent 22 minutes in reviewing the patient's records and imaging studies, seeing the patient and documenting in the medical record. Orders: Orders AMB Joint Injection/Aspiration Today M17.11 - Unilateral primary osteoarthritis, right knee AMB Joint Injection/Aspiration Today M17.12 - Unilateral primary osteoarthritis, left knee Coding Level of Care Code Est Pt Level 3 (14252) Complex EM visit Add On G2211 Diagnoses Arthritis of left knee M17.12 Arthritis of right knee M17.11 CPT Codes Coding - 24142 Large joint: 09926 - Large joint ([id number]) Coding - 32850 Large joint: 64425 - Large joint ([id number])
[2025-02-20 13:36] VITALS: BMI 35.2
--- OUTSIDE RECORDS SUMMARY | 2025-02-20 14:23 | XMS_ITS | Clinical Summary ---
Author Organization [facility] Address [address] [place] [address] Phone Care Team Providers Care Technical Systems Architect Name Role Phone [email or web address] doran Primary Care Provider [phone] Allergies Active Allergy Reactions Criticality Noted Date [...] 05/18/2023 02/15/2023, 11/0 02/2022 Influenza Vaccine (#1) 2025 , 02/22/2020, 03/30/2019, Additional history exists Hepatitis B Vaccine Aged Out 09/09/2008, 10/13/2001, 09/18/2001 No longer eligible based on patient's age to complete this topic Pneumococcal Vaccine: 50+ Years Completed 10/06/2015, 03/13/2013 Insurance Medicare [facility] Medicare [facility] Care Teams Technical Systems Architect Relationship Specialty Start Date End Date Geoffrey Dooley [address] [place] [id number] PCP - General Internal Medicine 03/28/23
--- OUTSIDE RECORDS SUMMARY | 2025-02-20 14:23 | XMS_ITS | Clinical Summary ---
Author Organization [facility] Address [address] [place] [address] Care Team Providers Care Embroidery Designer Name Role Phone Vy France MD Primary Care Provider [phone] Allergies Active Allergy Reactions Criticality Noted Date [...] emulsion Apply to eye. 0 Ac tive [place]-3 Fatty Acids (FISH OIL PO) by Does [...] 1-dose 75+ series) 09/27/2022 Influenza Vaccine (#1) 2025 2, 02/22/2020, 03/30/2019, Additional history exists DTap [...] age to complete this topic Care Teams Embroidery Designer Relationship Specialty Start Date End Date Vy France MD PCP - General Internal Medicine 02/27/17
--- OUTSIDE RECORDS SUMMARY | 2025-02-20 14:23 | XMS_ITS | Clinical Summary ---
Author Organization 175 [facility] Address [address] [place] [address] Phone Care Team Providers Care [employer] Name Role Phone Geoffrey Velasco MD Primary Care Provider [phone] Allergies Active Allergy Reactions Criticality Noted Date [...] BREATH 8.5 each 3 06/05/20 24 Active polyethylene glycol (PEG) 17 gram/dose oral powder DISSOLVE 17 GRAMS IN 8 OZ OF FLUID LIQUID DRINK DAILY DIRECTED 238 g 10/05/19 25 Active levothyroxine (SYNTHROID, LEVOTHROID) 25 mcg tabletIndication s:Hypothyroidism , unspecified TAKE 1 TABLET BY MOUTH EVERY DAY 90 tablet 1 10/15/19 25 Active fluticasone propionate (FLONASE) 50 mcg/actuation nasal sprayIndications :PND (post-nasal drip) Administer 2 sprays into each nostril 1 (one) time each day. Shake gently. Before first use, prime pump. After use, clean tip and replace cap. 16 g 11 12/13/19 25 026 Active Advair HFA 230-21 mcg/actuation inhalerIndicatio ns:Mild persistent asthma, uncomplicated Inhale 2 puffs by mouth 2 (two) times a day. Rinse mouth with water after use to reduce aftertaste and incidence of candidiasis. Do not swallow. 12 each 5 12/13/19 25 025 Active aMILoride (MIDAMOR) 5 mg tablet TAKE 1/2 TABLET BY MOUTH ONCE DAILY 45 tablet 1 12/17/19 25 Active Ozempic 0.25 mg or 0.5 mg (2 mg/3 mL) injection penIndications:T ype 2 diabetes mellitus without complication, without long-term current use of insulin ([facility] V24, [facility] V28) INJECT 0.5 MG UNDER THE SKIN EVERY 7 (SEVEN) DAYS. 6 mL 1 12/21/19 25 Active atorvastatin (LIPITOR) 80 mg tabletIndication s:Type 2 diabetes mellitus with diabetic chronic kidney disease ([facility] V24, [facility] V28) TAKE 1 TABLET BY MOUTH EVERY DAY 90 tablet 01/07/20 25 Active nortriptyline (PAMELOR) 50 mg capsuleIndicatio ns:Headache, unspecified TAKE 1 CAPSULE BY MOUTH EVERYDAY AT BEDTIME 90 capsule 01/07/20 25 Active mirtazapine (REMERON) 7.5 mg tabletIndication s:Psychophysiolo gic insomnia TAKE 1 TABLET BY MOUTH EVERYDAY AT BEDTIME 90 tablet 01/14/20 25 Active lisinopriL (PRINIVIL,ZESTRI L) 20 mg tabletIndication s:Essential (primary) hypertension,Chr onic kidney disease, stage 3 unspecified (CMS/HCC V24, CMS/HCC V28) TAKE 1 TABLET BY MOUTH EVERY DAY 90 tablet 02/04/20 25 Active lisinopriL (PRINIVIL,ZESTRI L) 20 mg tabletIndication s:Essential (primary) hypertension,Chr onic kidney disease, stage 3 unspecified (CMS/HCC V24, CMS/HCC V28) TAKE 1 TABLET BY MOUTH EVERY DAY 90 tablet 1 08/16/19 25 025 Discontinued Active Problems Problem Noted Date Diagnosed Date Mild persistent asthma, uncomplicated 12/21/2024 Reactive airway disease without complication 11/2024 PND (post-nasal drip) 12/12/2024 Insomnia 09/07/2023 Occlusion of left subclavian artery [...] apnea syndrome 09/25/2020 Type 2 diabetes mellitus (CMS/HCC V24, CMS/[facility] V 28) 07/09/2020 DM (diabetes mellitus), type 2 with renal complications ([facility] V24, [facility] V28) 07/09/2020 Assessment & Plan (05/28/2024 6:06 [...] kidney disease) stage 3, GFR 30-59 ml/min ([facility] V24, [facility] V28) 02/25/2014 Overview (09/13/2023): Assessment & Plan [...] Encounters Date Type Department Care Team Description 02/06/2025 2:44 PM EDT - 02/06/2025 11:59 PM EDT Hospital Encounter Radiology Department - [address] [phone] Screening mammogram for breast cancer Discharge Disposition: Home or Self Care 12/23/2024 12:00 PM EDT Ancillary Procedure [facility] - [address] [place] [address] Occlusion of left subclavian artery; Arteriosclerosis of carotid artery, unspecified laterality; Dizziness 12/23[facility] [address] [address] Kathrine Montero [place] DME-cpap supplies 12/18[facility] [address] [phone] Mignon Denis NP DME request ([employer]) 12/16[facility] [address] [phone] Mignon Denis NP pulse ox 12/12/2024 1:00 PM EDT [facility] [address] [address] Mignon Denis NP Mild persistent asthma, uncomplicated (Primary Dx); PND (post-nasal drip); Obstructive sleep apnea syndrome; Insomnia, unspecified type; Severe obesity (CMS/HCC V24, CMS/HCC V28) from Last 3 Months Immunizations Name Administration Dates Next Due H1N1 Inj Preservative Free 06/26/2009 Hepatitis A Adult (Havrix; V aqta) 19yo and older 09/18/2001 Hepatitis A Pediatric (Havri x; Vaqta) 12mo to less than 19yo 09/03/2008 Hepatitis B (Boebezh-P-Vqfzh , Recombivax HB-Adult) 19yo and older 09/09/2008,10/13/2001,09/18/2001 [...] PROCEDURE: [place] BIOPSY TONGUE ANTERIOR TWO-THIRDS; COMMENT: Leukoplakia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 Also sees Dr. Ulloa ANKLE FRACTURE [...] atypical Diet-controlled type 2 diabe gayla mellitus (CMS/HCC V24, CMS/HCC V28) 10/07/2015 DX:Diet-controlled type 2 diabetes mellitus (HCC) Acquired hypothyroidism 12/01/2016 DX:Acqui red hypothyroidism Severe obesity (BMI 35.0-39. 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/27/2023 DX:St eal syndrome, subclavian Family History Medical History Relation Name Comments Liver cancer Brother 1 Hypertension Brother 2 Stroke Brother 2 Diabetes Father late Hypertension Father Breast cancer Maternal Grandmother Arthritis Mother Coronary artery disease Mother Hypertension Mother Leukemia Mother Colon cancer Paternal Grandfather Heart attack Sister 1 Arthritis Sister 2 Hypertension Sister 2 Heart attack Sister 3 No Known Problems Son Ovarian cancer Neg Hx Relation Name Status Comments Brother 1 (Age 40's) Pancreat ic cancer Brother 2 Alive HTN, stroke age 39 Father Diabetes, HTN, Maternal Grandmother Mother (Age 53) aggressive leukemia Paternal Grandfather Sister 1 (Age 49) unknown, m assive [place]?, niece wouldn't share autopsy results Sister 2 [...] care for your loved ones. For example, early childhood director or elderly care for an older adult? [...] Sexual Orientation Not on file Obstetrics History Para Term AB IAB SAB Ectopic Multiple Livin g Live Births 3 3 3 3 Date Outcome GA Total Labor Labor/2nd/3rd Weight Sex Type Anes PTL Haley A1 A5 Name Clin Term Term Term Last Filed Vital Signs Vital Sign Reading Time Taken Comments Blood Pressure 132/60 12/12/2024 1:10 PM EDT Pulse 92 12/12/2024 1:10 PM EDT Temperature 36.2 C (97.1 F) 12/12/2024 1:10 PM EDT Respiratory Rate 16 12/12/2024 1:10 PM EDT Oxygen Saturation 95% 12/12/2024 1:10 PM EDT Inhaled Oxygen Concentration - - Weight 103 kg (226 lb 6.4 oz) 12/12/2024 1:10 PM EDT Height 170.2 cm (5' 7 ) 12/12/2024 1:10 PM EDT Body Mass Index 35.46 12/12/2024 1:10 PM EDT Plan of Treatment Upcoming Encounters Date Type Department Care Team (Late st Contact Info) Description 03/13/2025 11:00 AM EDT Office Visit Vascular Surgery - [place] [address] [place] [address] Jez Koenig MD [address] [place] [address] 04/04/2025 2:30 PM EDT Office Visit Internal Medicine - [facility] [address] [place] [address] Tami Young, GRAEME [address] [place] [address] 06/19/2025 2:45 PM EST Office Visit Pulmonolgy - [place] [address] [place] [phone] Mignon Denis NP 175 [facility] [address] [place] [address] Health Maintenance Due Date Last Done Comments [...] Urine Albumin-Creatinine Ratio (uACR) 01/24/2025 01/25/2024, 11/10/2022 Influenza Vaccine (#1) 2025 , 03/30/2023, 03/30/2023, Additional history exists Diabetes: Blood Sugar Control Test (HGBA1C) 04/06/2025 10/04/2024, 05/28/2024, 01/25/2024, Additional history exists Social Influencers of Health Screening 05/27/2025 05/27/2024 Diabetes: Annual GFR (Glomerular Filtration Rate) 10/04/2025 [...] 03/13/2013 Zoster Vaccines Completed 01/24/2020, 09/07, 11/25/2011 Hepatitis C Screening Completed 06/09/2022, 014 RSV Immunization Adult Patients Completed 05/09/2024 Depression Screening Completed 09/27/2024, 05/16/20 23 Breast Cancer Screening Discontinued 02/07/20, 11/18/2021, 06/12/2020, Additional history exists HIB Vaccines Aged Out No longer eligi [...] Procedure Name Priority Date/Time Associated Diagnosis Comments MG MAMMO DIGITAL SCREENING W JOSE BILAT Routine 02/06/2025 3:17 PM EDT Screening mammogram for breast cancer VAS US DUPLEX CAROTID BILATERAL Routine 12/23/2024 12:21 PM EDT Occlusion of left subclavian artery Arteriosclerosis of carotid artery, unspecified laterality Dizziness EXTERNAL DIABETIC RETINA EYE EXAM 10/15/2024 COMPREHENSIVE METABOLIC PANEL Routine 10/04/2024 4:27 PM EDT Screening for metabolic disorder HEMOGLOBIN A1C Routine 10/04/2024 4:27 PM EDT Type 2 diabetes mellitus without complication, without long-term current use of insulin ([facility]/HCC V24, CMS/[facility] V28) LIPID PANEL WITH REFLEX TO DIRECT LDL Routine 10/04/2024 4:27 PM EDT Type 2 diabetes mellitus without complication, without long-term current use of insulin (CMS/HCC V24, CMS/[facility] V28) URINE ALBUMIN CREATININE RATIO Routine 01/25/2024 DEPRESSION SCREENING Routine 05/16/2023 HEPATITIS C SCREENING Routine 06/09/2022 DXA BONE DENSITY STUDY 1+ SITS AXIAL SKEL Routine 11/26/2018 3:53 PM EDT Asymptomatic menopausal state from Last 3 Months or Most Recently Relevant to Health Maintenance Results * MG Mammo Digital Screening w Jose bilat (02/06/2025 3:17 PM EDT) Anatomical Region Laterality Modality Breast Bilateral Mammography 02/10/2025 11:5 1 AM EDT Impressions 02/10/2025 11:52 AM EDT No mammographic evidence of malignancy. BREAST DENSITY: B - There are scattered areas of fibroglandular density. BI-RADS CATEGORY: 1 - NEGATIVE RECOMMENDATION: Screening bilateral mammogram is recommended in 1 year. MAMMO LOCATION: [facility], [address] [place] [address], [phone], . -------- FINAL REPORT -------- Dictated By: Nohelia Licea Dictated Date: 02/10/2025 11:51 ET Assigned Physician: Nohelia Licea Reviewed and Electronically Signed By: Nohelia Licea Signed Date: 02/10/2025 11:52 ET Workstation ID: [id number] Transcribed By: Self Edit Transcribed Date: 02/10/2025 11:51 ET Narrative 02/10/2025 11:52 AM EDT EXAM: Screening Mammogram CLINICAL: 79 years old, Female, routine annual exam. COMPARISON: 11/18/2021 and 06/12/2020 TECHNIQUE: Bilateral MLO and CC views were obtained digitally with 3-D mammogram (digital breast tomosynthesis). Computer-aided detection was utilized in evaluation of this exam (CAD). FINDINGS: No new suspicious mass, architectural distortion, or suspicious calcifications. Procedure Note Nohelia Licea MD - 02/10/2025 EXAM: Screening Mammogram CLINICAL: 79 years old, Female, routine annual exam. COMPARISON: 11/18/2021 and 06/12/2020 TECHNIQUE: Bilateral MLO and CC views were obtained digitally with 3-Dmammogram (digital breast tomosynthesis). Computer-aided detection wasutilized in evaluation of this exam (CAD). FINDINGS: No new suspicious mass, architectural distortion, or suspiciouscalcifications. IMPRESSION: No mammographic evidence of malignancy. BREAST DENSITY: B - There are scattered areas of fibroglandular density. BI-RADS CATEGORY: 1 - NEGATIVE RECOMMENDATION: Screening bilateral mammogram is recommended in 1 year. MAMMO LOCATION: [facility], [address] [place] [address], [phone], . -------- FINAL REPORT -------- Dictated By: Nohelia Licea Dictated Date: 02/10/2025 11:51 ET Assigned Physician: Nohelia Licea Reviewed and Electronically Signed By: Nohelia Licea Signed Date: 02/10/2025 11:52 ET Workstation ID: [id number] Transcribed By: Self Edit Transcribed Date: 02/10/2025 11:51 ET us Geoffrey Velasco MD IMG BI PROCEDURES Final R esult * Vascular US duplex carotid bilateral (12/23/2024 12:21 PM EDT) Left CCA dist zarate 17 cm/s CV VAS LAB Left CCA dist sys 80 cm/s CV VAS LAB LEFT COMMON CAROTID ARTERY MID D 23 cm/s CV VAS LAB LEFT COMMON CAROTID ARTERY MID S 101 cm/s CV VAS LAB Left CCA prox zarate 25 cm/s CV VAS LAB Left CCA prox sys 111 cm/s CV VAS LAB LEFT EXTERNAL CAROTID ARTERY D 21 cm/s CV VAS LAB Left ECA sys 137 cm/s CV VAS LAB Left ICA/CCA sys 1.60 no units CV VAS LAB Left ICA dist zarate 27 cm/s CV VAS LAB Left ICA dist sys 92 cm/s CV VAS LAB Left ICA mid zarate 35 cm/s CV VAS LAB Left ICA mid sys 125 cm/s CV VAS LAB Left ICA prox zarate 19 cm/s CV VAS LAB Left ICA prox sys 75 cm/s CV VAS LAB Left vertebral sys 93 cm/s CV VAS LAB Right CCA dist zarate 11 cm/s CV VAS LAB Right cca dist sys 61 cm/s CV VAS LAB RIGHT COMMON CAROTID ARTERY MID D 17 cm/s CV VAS LAB RIGHT COMMON CAROTID ARTERY MID S 92 cm/s CV VAS LAB Right CCA prox zarate 18 cm/s CV VAS LAB Right CCA prox sys 104 cm/s CV VAS LAB RIGHT EXTERNAL CAROTID ARTERY D 18 cm/s CV VAS LAB Right eca sys 163 cm/s CV VAS LAB Right ICA/CCA sys 2.40 no units CV VAS LAB Right ICA dist zarate 34 cm/s CV VAS LAB Right ICA dist sys 145 cm/s CV VAS LAB Right ICA mid zarate 34 cm/s CV VAS LAB Right ICA mid sys 121 cm/s CV VAS LAB Right ICA prox zarate 14 cm/s CV VAS LAB Right ICA prox sys 74 cm/s CV VAS LAB Right vertebral sys 78 cm/s CV VAS LAB Left Prox Subclavian PSV 144 cm/s CV VAS LAB Right Prox Subclavian PSV 222 cm/s CV VAS LAB Right arm BP 150 mmHg CV VAS LAB Left arm BP 95 mmHg CV VAS LAB Anatomical Region Laterality Modality Vascular, Abdomen Ultrasound Narrative 12/24/2024 4:28 PM EDT Right proximal ICA: There is minimal heterogeneous plaque. RIGHT. 1. There is atherosclerotic plaque in the carotid system as noted above. 2. There is less than 50% stenosis in the internal carotid artery based on Doppler velocity. 3. The subclavian artery has normal Doppler flow pattern. 4. Vertebral artery has normal antegrade flow. LEFT. 1. There is atherosclerotic plaque in the carotid system as noted above. 2. There is less than 50% stenosis in the internal carotid artery based on Doppler velocity. 3. The subclavian artery has abnormal Doppler flow pattern with steal physiology consistent with occlusion versus stenosis. Correlate clinically. 4. Vertebral artery has normal retrograde flow. Right Carotid The CCA has no significant plaque. The proximal ICA has minimal heterogeneous plaque. The ECA has no significant plaque. Right BP= 150/67 Vertebral flow is antegrade. Left Carotid The CCA has no significant plaque. The bifurcation has trace plaque. The ECA has no significant plaque. The vertebral artery flow is retrograde. The subclavian artery has turbulent flow. The subclavian artery waveforms are monophasic. Left BP= 945/65 [employer] Specialist Details A weber scale, color and doppler analysis ultrasound was performed. During the study longitudinal and transverse views were obtained. Pulsed wave doppler was performed. us Jez Koenig MD CV VASCULAR PROCEDURES Final Re sult * External Diabetic Retina Eye Exam Report (10/15/2024) Anatomical Region Laterality Modality Ultrasound us Provider [facility] IMG US PROCEDURES Final Result * (ABNORMAL) Lipid panel with reflex to direct LDL (10/04/2024 4:27 PM EDT) [facility] Cholesterol 181 0 - 200 mg/dL LAB CHEMISTRY METHOD 10/04/2024 7:00 PM EDT [facility] Triglycerides 153(H) 0 - 150 mg/dL LAB CHEMISTRY METHOD 10/04/2024 7:00 PM EDT [facility] HDL 68 >=40 mg/dL LAB CHEMISTRY METHOD 10/04/2024 7:00 PM EDT [facility] LDL Calculated 82 0 - 100 mg/dL LAB CHEMISTRY METHOD 10/04/2024 7:00 PM EDT [facility] VLDL Cholesterol Romaine 30.6 mg/dL LAB CHEMISTRY METHOD 10/04/2024 7:00 PM EDT [facility] Non HDL Chol. (LDL+VLDL) 113 <145 mg/dL LAB CHEMISTRY METHOD 10/04/2024 7:00 PM EDT [facility] Chol/HDL Ratio 2.7 0.0 - 4.4 LAB CHEMISTRY METHOD 10/04/2024 7:00 PM EDT [facility] Blood Venous blood specimen / Unknown Venipuncture / Unknown 10/04/2024 4:27 PM EDT 10/04/2024 4:27 PM EDT us Tami Angeles COMPUTER CUSTOMER SUPPORT SPECIALIST LAB BLOOD ORDERABLES Final R esult [facility] [address] [place] [address], * Hemoglobin A1c (10/04/2024 4:27 PM EDT) Hemoglobin A1C 6.4 <6.5 % LAB CHEMISTRY METHOD 10/04/2024 8:20 PM EDT [facility] Mean Bld Glu Estim. 137 mg/dL LAB CHEMISTRY METHOD 10/04/2024 8:20 PM EDT [facility] Blood Venous blood specimen / Unknown Venipuncture / Unknown 10/04/2024 4:27 PM EDT 10/04/2024 4:27 PM EDT us Tami Angeles COMPUTER CUSTOMER SUPPORT SPECIALIST LAB BLOOD ORDERABLES Final R esult [facility] [address] [place] [address], * Comprehensive metabolic panel (10/04/2024 4:27 PM EDT) Sodium 139 133 - 145 mmol/L LAB CHEMISTRY METHOD 10/04/2024 7:00 PM [facility] Potassium 4.7 3.5 - 5.5 mmol/L LAB CHEMISTRY METHOD 10/04/2024 7:00 PM [facility] Chloride 105 96 - 110 mmol/L LAB CHEMISTRY METHOD 10/04/2024 7:00 PM [facility] CO2 25 21 - 32 mmol/L LAB CHEMISTRY METHOD 10/04/2024 7:00 PM [facility] Anion Gap 9 3 - 11 LAB CHEMISTRY METHOD 10/04/2024 7:00 PM [facility] Glucose 94 70 - 100 mg/dL LAB CHEMISTRY METHOD 10/04/2024 7:00 PM [facility] BUN 25 5 - 25 mg/dL LAB CHEMISTRY METHOD 10/04/2024 7:00 PM [facility] Creatinine 0.88 0.50 - 1.10 mg/dL LAB CHEMISTRY METHOD 10/04/2024 7:00 PM [facility] eGFR 68 >=60 mL/min/1. 73m2 LAB CHEMISTRY METHOD 10/04/2024 7:00 PM [facility] Comment:Calculation based on the Chronic Kidney Disease Epidemiology Collaboration (CKD-EPI) equation refit without adjustment for race. BUN/Creatinine Ratio 28.4 LAB CHEMISTRY METHOD 10/04/2024 7:00 PM [facility] Calcium 10.0 8.5 - 10.5 mg/dL LAB CHEMISTRY METHOD 10/04/2024 7:00 PM EDT [facility] AST (SGOT) 24 10 - 42 unit/L LAB CHEMISTRY METHOD 10/04/2024 7:00 PM EDT [facility] ALT (SGPT) 36 10 - 60 unit/L LAB CHEMISTRY METHOD 10/04/2024 7:00 PM T [facility] Alkaline Phosphatase 118 42 - 121 unit/L LAB CHEMISTRY METHOD 10/04/2024 7:00 PM EDT [facility] Total Protein 7.0 6.0 - 8.0 g/dL LAB CHEMISTRY METHOD 10/04/2024 7:00 PM [facility] Albumin 4.1 3.2 - 5.0 g/dL LAB CHEMISTRY METHOD 10/04/2024 7:00 PM [facility] Total Bilirubin 1.1 0.0 - 1.4 mg/dL LAB CHEMISTRY METHOD 10/04/2024 7:00 PM EDT [facility] Blood Venous blood specimen / Unknown Venipuncture / Unknown 10/04/2024 4:27 PM EDT 10/04/2024 4:27 PM EDT Tami Angeles NP LAB BLOOD ORDERABLES Final R esult [facility] [address] [place] [address], * Urine Albumin Creatinine Ratio (01/25/2024) Pathologist [facility] Urine Albumin Creatinine Ratio Abstracted Historical Provider HEALTH MAINTENANCE Final Result * Depression Screening (05/16/2023) Pathologist [facility] Depression Screening Abstracted Historical Provider HEALTH MAINTENANCE Final Result * Hepatitis C Screening (06/09/2022) Pathologist [facility] Hepatitis C Screening Abstracted Historical Provider HEALTH MAINTENANCE Final Result * DXA BONE DENSITY STUDY 1+ KARINA LAU SKBRENDAN (11/26/2018 3:53 PM EDT) Anatomical Region Laterality Modality Bone Densitometr y 11/02/2018 3:06 PM EDT Narrative 11/26/2018 4:40 PM EDT BONE DENSITY Lumbar Spine T-score is +2.2 (SD relative to 20-29 y/o adult) Z-score is +4.3 (SD relative to age matched peers) This is normal by criteria defined by the WHO. Left Hip T-score is -2.0 Z-score is -0.2 This is consistent with osteopenia by criteria defined by the WHO. Comparison exam(s): significant increase in bone density of hip and lumbar spine when compared to most recent bone density examination Confidence level is +/-95%. Impression: Based on the World Health Organization criteria, Destiny Lundy should be classified as having osteopenia. This patient has a 11% risk of major osteoporotic fracture and a 2% risk of hip fracture over the next 10 years. (World Health Organization Fracture Risk Assessment) The [facility] Department of Internal Medicine recommends using [...] (World Health Organization Fracture Risk Assessment) The [facility] Department of Internal Medicine recommendsusing National [...] fracture risk by FRAX. Vy France MD IMSaurabh DXA PROCEDURES Final Re sult from Last 3 Months or Most Recently Relevant to Health Maintenance Insurance MEDICARE [facility] Care Teams [employer] Relationship Specialty Start Date End Date Geoffrey Velasco MD [address] [place] [phone] PCP - General Internal Medicine 04/21/20
--- OUTSIDE RECORDS SUMMARY | 2025-02-20 14:23 | XMS_ITS ---
Author Name [facility] Organization Unknown History of Medication Use Medication Directions Dispensed Refills Start Date End Date Stat us lidocaine (PF) 100 mg/5 mL (2 %) injection syringe Take 4 mL by injection route. 12/28/2023 active lidocaine (PF) 10 mg/mL (1 %) injection solution Take 2 mL by injection route. 11/25/2022 3 active cyclobenzaprine 5 mg tablet TAKE 1 TABLET BY MOUTH 3 TIMES DAILY NEEDED FOR MUSCLE SPASMS FOR UP TO 5 DAYS *NOT COVD* 3 completed prednisolone acetate 1 % eye drops,suspension PLACE 1 DROP BOTH EYES 4 TIMES A DAY DIRECTED FOR 3 WEEKS 3 completed Prolensa 0.07 % eye drops INSTILL 1 DROP IN OPERATED EYE AT BEDTIME FOR 3 WEEKS 3 completed amiloride 5 mg tablet TAKE 1 TABLET BY MOUTH EVERY DAY active Ozempic 0.25 mg or 0.5 mg (2 mg/3 mL) subcutaneous pen injector INJECT 0.25 MG INTO THE SKIN EVERY 7 DAYS FOR 14 DAYS, THEN 0.5 MG EVERY 7 DAYS FOR 90 DAYS. active Allergies Allergen Reaction Severity Comment Documented Date Source Statu s SULFA (SULFONAMIDE ANTIBIOTICS) [facility] Problems Problem Status Onset Date Problem Type Date of Resoluti on Source Osteoarthritis of left knee joint active 2022-11-25 ProblemAct [facility] Osteoarthritis of right knee joint active 2022-11-25 ProblemAct [facility] Pain of bilateral knee joints active 2023-02-24 ProblemAct [facility] Encounters Encounter Type Encounter Reason Primary Diagnosis Location Date Ambulatory [facility] 12/29/2023 Ambulatory [facility] 12/28/2023 Ambulatory [facility] 09/14/2023 Ambulatory [facility] 09/13/2023 Ambulatory [facility] 06/08/2023 Ambulatory [facility] 02/23/2023 Ambulatory [facility] 02/22/2023 Ambulatory [facility] 02/21/2023 Ambulatory [facility] 12/30/2022 Ambulatory [facility] 11/25/2022 Ambulatory [facility] 11/25/2022 Ambulatory [facility] 11/23/2022 Ambulatory [facility] 11/18/2022 Ambulatory [facility] 11/18/2022 Ambulatory [facility] 11/18/2022 Ambulatory [facility] 10/06/2022 Care Team Organization Name Specialty Phone Email Start Date End Da te [facility] KELLY Primary Care 06/09/202202/25 [facility] Sheila Sanon APRN Primary Care 05/17/2022 02/26/2024
== END 2025-02-20 13:59 | disposition home or self-care (01) ==
LOC: HO.HOS 13:33
PROVIDERS: PCP Internal Medicine; Visit Provider Orthopaedic Surgery
DX: M17.0 Bilateral primary osteoarthritis of knee (principal)
CPT/HCPCS: 20610

== ENCOUNTER → 2025-02-20 13:32 | Outpatient (BNVA) | payer MEDICARE, OTHER, SELFPAY | PROVIDERS: PCP Internal Medicine; Visit Provider Orthopaedic Surgery | DX: M17.0 Bilateral primary osteoarthritis of knee (principal) | CPT/HCPCS: 20610; J1010; J2003 ==

== ENCOUNTER 2025-03-20 13:35 | Outpatient (AMB) | payer MEDICARE, OTHER, SELFPAY ==
--- NOTE | 2025-03-20 13:43 | HO.NEPHOV ---
Vital Signs 03/20/25 13:46 Height 5 ft 7 in Weight 227 lb BMI 35.5 BP 132/80 Blood Pressure Location Rt brachial Position Sitting Pulse 81 Pulse Source Pulse Oximeter Pulse Oximetry (%) 98 Oxygen Delivery Method Room Air Intake Visit Reasons: 6 mo follow up-[facility] School Commissioner Required: No Accompanied by: Self / Same As Patient Allergies Sulfa (Sulfonamide Antibiotics) Allergy (Verified 03/20/25 13:46) Unknown HPI Comments Details: Destiny in follow-up of her chronic kidney disease and hypertension. She has history of diabetes and hypertension. She also has history of Raynaud's as well as arthritic symptoms. Her A1c is good. She had seen a php architect in the past. She was taking nonsteroidal anti-inflammatory medications in the past. She is on RADHA-inhibitor and diuretics. She feels her blood sugar and blood pressure well controlled. She has no history of coronary disease, CVA, CARLOS, CHF, renal stones. She has a diagnosis of carotid / subclavian stenosis and is following Vascular surgeon. She had a pneumonia this July. [facility] Medical History Type 2 diabetes mellitus with renal complication Obstructive sleep apnea Lichen planus of tongue Irritable bowel syndrome Hypersomnia with sleep apnea Hyperlipidemia Hallux valgus of left foot Chronic kidney disease, stage 3a Chronic headache disorder Acquired hypothyroidism Hypertension Surgical History History of knee surgery History of tubal ligation History of appendectomy History of tonsillectomy Family History Father Diabetes Social History Alcohol intake: current Patient Tobacco Use Status: Former Tobacco user Review of Systems Const All systems reviewed & are unremarkable except as noted in HPI and below Physical Exam Vital Signs: Last Vital Signs Pulse 81 03/20/25 13:46 BP 132/80 03/20/25 13:46 Pulse Ox 98 03/20/25 13:46 Oxygen Delivery Method Room Air 03/20/25 13:46 BMI result Body Mass Index 35.5 Const General: comfortable and no acute distress Orientation/consciousness: patient oriented x3 HEENT Head: Yes normocephalic Mouth: Normal oral and palatal mucosa present Eyes EOM: EOMs intact bilaterally Neck Neck: Yes supple Resp Auscultation: clear to auscultation bilaterally Cardio Jugular venous distension: no JVD Rate: regular rate GI Palpation (GI): Soft to palpation Auscultation: normal bowel sounds General: Yes no CVA tenderness Back/Spine/Pelvis Back: no CVA tenderness Skin General skin exam: no rashes or lesions noted Neuro General: patient oriented x3 and moves all extremities Extrem General: Yes no pedal edema Assessment & Plan Assessment & Plan (1) CKD (chronic kidney disease) stage 3, GFR 30-59 ml/min: Code(s): N18.30 - Chronic kidney disease, stage 3 unspecified Category: Medical Qualifiers: Chronic kidney disease stage 3 subtype: stage 3a (GFR 45-59) Qualified Code(s): N18.31 - Chronic kidney disease, stage 3a (2) Hypertension: Code(s): I10 - Essential (primary) hypertension Category: Medical Qualifiers: Hypertension type: primary hypertension Qualified Code(s): I10 - Essential (primary) hypertension Plan 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 She is on RADHA-inhibitor. She had sulfa allergy and takes only amiloride. She was encouraged to minimize nonsteroidal anti-inflammatories and maintain good hydration. She needs good blood sugar and blood pressure control. Her renal function is quite stable. She may be a candidate for Doppler of renal arteries in the future. Follow-up lab work was ordered. Answered all questions Orders: Orders Blood Urea Nitrogen 7 Months I10 - Essential (primary) hypertension, N18.31 - Chronic kidney disease, stage 3a Creatinine 7 Months I10 - Essential (primary) hypertension, N18.31 - Chronic kidney disease, stage 3a Electrolytes 7 Months I10 - Essential (primary) hypertension, N18.31 - Chronic kidney disease, stage 3a Protein Creatinine Ratio, Ur 7 Months I10 - Essential (primary) hypertension, N18.31 - Chronic kidney disease, stage 3a UA and rflx microscopic 7 Months I10 - Essential (primary) hypertension, N18.31 - Chronic kidney disease, stage 3a Coding Level of Care Code Est Pt Level 4 (11714) Diagnoses Stage 3a chronic kidney disease N18.31 Chronic kidney disease stage 3 subtype: stage 3a (GFR 45-59) Primary hypertension I10 Hypertension type: primary hypertension
[2025-03-20 13:46] VITALS: BP 132/80; PULSE 81; O2SAT 98; BMI 35.5
--- OUTSIDE RECORDS SUMMARY | 2025-03-20 17:28 | XMS_ITS | Clinical Summary ---
Author Organization [facility] Address [address] [facility] [address] [place] [address] Phone Care Team Providers Care Partner Marketing Manager Name Role Phone [email or web address] doran Primary Care Provider [phone] Allergies Active Allergy Reactions Criticality Noted Date [...] 10/06/2015, 03/13/2013 Insurance Medicare [facility] Medicare [facility] Care Teams Partner Marketing Manager Relationship Specialty Start Date End Date Geoffrey Dooley [address] [place] [phone] PCP - General Internal Medicine 03/28/23
--- OUTSIDE RECORDS SUMMARY | 2025-03-20 17:28 | XMS_ITS | Clinical Summary ---
Author Organization [facility] Address [address] [place] [address] Care Team Providers Care 2Nd Grade Teacher Name Role Phone Vy France MD Primary Care Provider [phone] Allergies Active Allergy Reactions Criticality Noted Date [...] emulsion Apply to eye. 0 Ac tive [place]-3 Fatty Acids (FISH OIL PO) by Does [...] age to complete this topic Care Teams 2Nd Grade Teacher Relationship Specialty Start Date End Date Vy France MD PCP - General Internal Medicine 02/27/17
== END 2025-03-20 14:06 | disposition home or self-care (01) ==
LOC: HO.HKAS 13:35
PROVIDERS: Visit Provider Internal Medicine Nephrology
DX: N18.31 Chronic kidney disease, stage 3a (principal); I10 Essential (primary) hypertension
CPT/HCPCS: 99214

== ENCOUNTER → 2025-03-20 13:35 | Outpatient (BNVA) | payer MEDICARE, OTHER, SELFPAY | PROVIDERS: PCP Internal Medicine; Visit Provider Internal Medicine Nephrology | DX: N18.31 Chronic kidney disease, stage 3a (principal); I10 Essential (primary) hypertension | CPT/HCPCS: 99212 ==

== ENCOUNTER 2025-05-29 13:05 | Outpatient (AMB) | payer MEDICARE, OTHER, SELFPAY ==
--- NOTE | 2025-05-29 13:12 | MHC.OFFVIS ---
Vital Signs 05/29/25 13:13 Height 5 ft 7 in Weight 227 lb BMI 35.5 Intake Visit Reasons: inj-B/L knee injection-last inj 02/20/25 Intake Note: Destiny is a 79 year old female who presents with complaints of bilateral knee pains. She describes her pains as sharp in nature. She has tried Tylenol which gives her minimal relief. She does walk with a walker. She has had cortisone injections which have given her fairly good relief. Allergies Sulfa (Sulfonamide Antibiotics) Allergy (Verified 05/29/25 13:19) Unknown Medication List - Last Reconciled 05/29/25 by Ever Martin MD acetaminophen ER (Tylenol Arthritis Pain) 1,300 mg PO BID albuterol sulfate 90 mcg/actuation inhalation amiloride mg PO aspirin 81 mg PO BID atorvastatin 80 mg PO DAILY coenzyme Q10 (CoQ-10) 100 mg PO DAILY fluticasone propion-salmeterol 115-21 mcg/actuation (Advair HFA) 2 puffs inhalation BID levothyroxine 25 mcg PO DAILY lisinopril 20 mg PO DAILY magnesium oxide 400 mg PO DAILY mirtazapine 15 mg PO BEDTIME multivitamin 1 tab PO DAILY nortriptyline 50 mg PO BEDTIME PRN omega 1-fpm-acf-fish oil 1,000 (120-180) mg (Fish Oil) 1 cap PO BID pen needle, diabetic (BD Ultra-Fine Mini Pen Needle) As directed semaglutide (Ozempic) mg subcut vitamin B complex 1 tab PO DAILY vitamin E mixed units PO BID [facility] Medical History Type 2 diabetes mellitus with renal complication Obstructive sleep apnea Lichen planus of tongue Irritable bowel syndrome Hypersomnia with sleep apnea Hyperlipidemia Hallux valgus of left foot Chronic kidney disease, stage 3a Chronic headache disorder Acquired hypothyroidism Hypertension Surgical History History of knee surgery History of tubal ligation History of appendectomy History of tonsillectomy Family History Father Diabetes Social History Alcohol intake: current Patient Tobacco Use Status: Former Tobacco user Physical Exam Vital Signs: BMI result Body Mass Index 35.5 Const Other: Well-nourished well-developed very friendly female awake alert and oriented x3 in no acute distress Extrem Other: Bilateral knee examination shows minimal effusions, palpable crepitus with range of motion, pain with range of motion, no instability Office Procedures AMB Joint Injection/Aspiration Joint Injection/Aspiration Primary Site: Left Knee Prep: site was prepped using aseptic technique Injected: 40 mg of, DepoMedrol, with 3 mL of and 1% plain Lidocaine Procedure: The patient tolerated the procedure well Coding - Large joint Procedure code (CPT) selection complete AMB Joint Injection/Aspiration Joint Injection/Aspiration Primary Site: Right Knee Prep: site was prepped using aseptic technique Injected: 40 mg of, DepoMedrol, with 3 mL of and 1% plain Lidocaine Procedure: The patient tolerated the procedure well Coding - Large joint Procedure code (CPT) selection complete Results Reviewed Results Reviewed: X-rays of the patient's bilateral knees taken previously show joint space narrowing, subchondral sclerosis, no acute bony abnormalities Assessment & Plan Assessment & Plan (1) Arthritis of left knee: Code(s): M17.12 - Unilateral primary osteoarthritis, left knee Category: Medical (2) Arthritis of right knee: Code(s): M17.11 - Unilateral primary osteoarthritis, right knee Category: Medical Plan Ms. Lundy presents with bilateral knee pains due to osteoarthritis. The risks and benefits of bilateral knee cortisone injections were discussed at length with the patient. The patient wished to proceed. She tolerated the injections well. She will continue with her home exercise program. She will contact me prior to follow-up appointment in 3 months should any questions or concerns arise. Feel free to call at any time should questions regarding her orthopedic management arise. I spent 21 minutes in reviewing the patient's records and imaging studies, seeing the patient and documenting in the medical record. Orders: Orders AMB Joint Injection/Aspiration Today M17.12 - Unilateral primary osteoarthritis, left knee AMB Joint Injection/Aspiration Today M17.11 - Unilateral primary osteoarthritis, right knee Coding Level of Care Code Est Pt Level 3 (05258) Complex visit Add On G2211 Diagnoses Arthritis of left knee M17.12 Arthritis of right knee M17.11 CPT Codes Coding - 33296 Large joint: 81045 - Large joint ([id number]) Coding - 87911 Large joint: 44113 - Large joint ([id number])
[2025-05-29 13:13] VITALS: BMI 35.5
--- OUTSIDE RECORDS SUMMARY | 2025-05-29 18:41 | XMS_ITS | Data Portability ---
Author Organization [place] [facility] Yordan Magana AONE [place] Address [address] [place] [address] Care Team Providers Care Orthopedics Pediatric Physician Name Role Phone ABI KELLY Referring Provider ABI KELLY Primary Care Provider [phone] Assessment Encounter Date Assessment Date Assessment LastModified [...] findings at length with the patient today. We discussed the nature and etiology of this problem along with current treatment options. We discussed the expected course and outcomes and what to expect. We also discussed risks and benefits. All of their questions were answered today, and there was exhibited understanding and comprehension of all that was discussed. Time Spent: 10 minutes were spent reviewing previous imaging and charting. 10 minutes were spent obtaining patient history. 5 minutes were spent on physical exam. 5minutes were spent explaining diagnosis and assessment. Today's [...] findings at length with the patient today. We discussed the nature and etiology of this problem along with current treatment options. We discussed the expected course and outcomes and what to expect. We also discussed risks and benefits. All of their questions were answered today, and there was exhibited understanding and comprehension of all that was discussed. Time Spent: 10 minutes were spent reviewing previous imaging and charting. 10 minutes were spent obtaining patient history. 5 minutes were spent on physical exam. 5minutes were spent explaining diagnosis and assessment. Today's [...] findings at length with the patient today. We discussed the nature and etiology of this problem along with current treatment options. We discussed the expected course and outcomes and what to expect. We also discussed risks and benefits. All of their questions were answered today, and there was exhibited understanding and comprehension of all that was discussed. Time Spent: 10 minutes were spent reviewing previous imaging and charting. 10 minutes were spent obtaining patient history. 5 minutes were spent on physical exam. 5minutes were spent explaining diagnosis and assessment. Today's [...] findings at length with the patient today. We discussed the nature and etiology of this problem along with current treatment options. We discussed the expected course and outcomes and what to expect. We also discussed risks and benefits. All of their questions were answered today, and there was exhibited understanding and comprehension of all that was discussed. Time Spent: 10 minutes were spent reviewing previous imaging and charting. 10 minutes were spent obtaining patient history. 5 minutes were spent on physical exam. 5minutes were spent explaining diagnosis and assessment. Today's documentation was made using voice recognition software. This note may contain grammatical errors secondary to the software. Not available 09/15/2023 08:47:32 12/28/2023 12/28/2023 78-year-old female with bilateral knee pain. History, examination and x-rays are consistent with advanced vkgp-hh-ctrr osteoarthritis. After discussion regarding treatment options she wishes to proceed with cortisone injections to bilateral knees. See the attached procedure note. Follow-up is as needed. This patient was seen and evaluated by Michael Abreu MS, PA-C in indirect conjunction with documenting/supe rvising provider [...] view 2023 024 [email or web address] 2 [facility], [address], [place], [address], 4 11:22:24 XR, knee, 4 or more view 2023 024 [email or web address] 2 [facility], [address], [place], [address], 4 11:22:24 XR, knee, 1 or 2 view - Left Knee Pain 2022 023 [facility], [address], [place], [address], 3 12:17:33 XR, knee, 1 or 2 view - Right Knee Pain 2022 023 [facility], [address], [place], [address], 3 12:17:33 XR, knee, weightbeari ng - Bilateral Knee Pain 2022 023 [facility], [address], [place], [address], 3 12:17:33 Medication Orders Marcaine (PF) 0.5 % (5 mg/mL) injection solution [address], [address], [place], [address], 4 11:14:32 lidocaine (PF) 100 mg/5 mL (2 %) injection syringe [address], [address], [place], [address], 4 11:14:32 triamcinolo ne acetonide 40 mg/mL suspension for injection [address], [address], [place], [address], 4 11:14:32 Marcaine (PF) 0.5 % (5 mg/mL) injection solution [address], [address], [place], [address], 4 11:14:32 lidocaine (PF) 100 mg/5 mL (2 %) injection syringe [address], [address], [place], [address], 4 11:14:32 triamcinolo ne acetonide 40 mg/mL suspension for injection [address], [address] [place], [address], 4 11:14:32 Kenalog 40 mg/mL suspension for [...] mg/mL suspension for injection 2022 023 [email or web address], [address], [place], [address], 4 11:32:00 lidocaine (PF) 10 mg/mL (1 %) injection solution 2022 023 [email or web address], [address], [place], [address], 11:32:03 Kenalog 40 mg/mL suspension for injection 2022 023 [address] [address], [place], [address], 11:32:00 lidocaine (PF) 10 mg/mL (1 %) injection solution [address]17, [address], [place], [address], 11:32:03 Patient TargetsNo targets recorded. Patient Instructions Encounter Date Encounter Id Patient Instructions Last Modified By Organization Details Last Modified Time 11/25/2022 [id number] You have been provided with a cortisone [...] hours following the injection. This is called demetria jauregui . To help minimize the chances of [...] is observed. Not available 11/25/2022 10:35:40 02/23/2023 [id number] You have been provided with a cortisone [...] following the injection. This is called a andres jauregui . To help minimize the chances of this, please see the post-injection instructions above. There is a less than 1% chance of an infection. If you notice any signs of infection (redness, warmth, drainage, fever greater than 100 degrees) please call our office or contact us through the portal [facility]. Not available 02/24/2023 07:59:38 06/08/2023 [id number] You have been provided with a cortisone [...] following the injection. This is called a f lare . To help minimize the chances of this, please see the post-injection instructions above. There is a less than 1% chance of an infection. If you notice any signs of infection (redness, warmth, drainage, fever greater than 100 degrees) please call our office or contact us through the portal [facility]. Not available 06/08/2023 12:48:41 09/14/2023 [id number] You have been provided with a cortisone [...] following the injection. This is called a f lare . To help minimize the chances of this, please see the post-injection instructions above. There is a less than 1% chance of an infection. If you notice any signs of infection (redness, warmth, drainage, fever greater than 100 degrees) please call our office or contact us through the portal [facility]. Not available 09/15/2023 08:46:31 12/28/2023 [id number] 8 view X-ray shua dy obtained during today's office encounter show evidence of severe bilateral knee osteoarthritis. There is joint space narrowing, subchondral sclerosis and marginal osteophytosis. Kellgren-Alex grade 4. No evidence of acute fracture or osteolytic findings. There is complete collapse of medial joint space bilaterally. Not available 12/28/2023 11:14:18 Reason for Referral None Reported. Problems Name Problem SNOMED Code Status Onset Date Resolution Date Notes Provider Name and Address Organization Details Recorded Time Primary gonarthro sis, bilateral 829253336 Active 2017 Primary osteoarth ritis of both knees Not Available [facility] 5 00:38:23 Arthritis of right knee joint [id number] 17695 Active 2017 Arthritis of knee, right Not Available [facility] 5 00:38:22 Arthritis of left knee joint 93440057235 00420 Active 2017 Arthritis of knee, left Not Available [facility] 5 00:38:22 Osteoarth ritis of right knee joint 65777172149 9100 Active 2022 MICHAEL AUGUSTIN PA-C [address], [place], [address] , [place] [facility] 3 10:32:55 Osteoarth ritis of left knee joint 86126066843 9109 Active 2022 MICHAEL AUGUSTIN PA-C [address], [place], [address] , [place] [facility], [facility] 3 10:33:00 Pain of bilateral knee joints 61861273716 4104 Active 2022 MICHAEL AUGUSTIN PA-C [address], [place], [address] , [place] [facility], [facility] 3 07:59:43 Problem Notes None recorded. Procedures Surgical History Date Name Laterality Status Provider Name and Address Organization Details Recorded Time 4 MJG Knee injection w/US completed MICHAEL ABREU PA-C [address], [place], [address], [place] [facility], P 12/28/2023 11:11:46 4 Knee Joint/Bursa Asp & Inj completed MICHAEL AUGUSTIN PA-C [address], [place], [address], [place] [facility], [facility] 09/15/2023 08:46:31 3 Knee Joint/Bursa Asp & Inj completed MICHAEL AUGUSTIN PA-C [address] [facility] [address], [place], [address], [place] [facility], [facility] 06/08/2023 12:48:41 3 Knee Joint/Bursa Asp & Inj completed MICHAEL AUGUSTIN PA-C [address] [facility] [address], [place], [address], [place] [facility], [facility] 02/24/2023 07:59:38 3 Knee Joint/Bursa Asp & Inj completed MICHAEL AUGUSTIN PA-C [address] [facility] [address], [place], [address], [place] [facility], [facility] 11/25/2022 10:32:45 Imaging Results None recorded. Procedure Notes None recorded. Medical Equipment None Reported. Allergies Allergen ID Allergen Name Allergen Category Reaction Reaction Severity Criticality Documentation Date Start Date Code Code System Note Provider Name and Address Organization Details Recorded Time 01963 Substance with sulfonami de structure and antibacte rial mechanism of action (substanc e) medicatio n Not available Not available Not available 06/08/2023 20548 8003 SNOMED Maryanne [place] [facility], [place] - [facility] 3 13:05:26 Medications Name Sig Start Date Stop Date Status Note LastModified by Organization Details LastModified Time methocarbam ol 500 mg tablet 2021 active Not Available Not Available Not Avai lable atorvastati n 80 mg tablet TAKE 1 TABLET BY MOUTH EVERY DAY active Not Available Not Available No t Available diltiazem ER (XR/XT) 240 mg capsule,ext ended release 24 hr, controlled Take 240 mg by mouth daily. 2016 active Not Available Not Available Not Avai lable ibuprofen 800 mg tablet TAKE 1 TABLET BY MOUTH 2 TIMES DAILY NEEDED FOR PAIN. 2020 active Not Available Not Available Not Avai lable meloxicam 15 mg tablet Take 15 mg by mouth. 2018 active Not Available Not Available Not Avai lable lisinopril 20 mg tablet TAKE 1 TABLET BY MOUTH EVERY DAY active Not Available Not Available No t Available methylpredn isolone 4 mg tablet PLEASE SEE ATTACHED FOR DETAILED DIRECTION S active Not Available Not Available No t Available aspirin 81 mg tablet,luis miguel yed release 1 TABLET DAILY 2007 active Not Available Not Available Not Avai lable levothyroxi ne 25 mcg tablet TAKE 1 TABLET BY MOUTH EVERY DAY active Not Available Not Available No t Available clobetasol 0.05 % topical gel APPLY TOPICALLY AT BEDTIME DIRECTED BY DR CORNELL 2016 active Not Available Not Available Not Avai lable amiloride 5 mg tablet TAKE 1/2 TABLET [...] Not Available Not Available Not Avai lable methylpredn isolone acetate 40 mg/mL suspension for injection 08/16 completed Not Available Not Available Not Available lisinopril 10 mg tablet Take 10 mg by mouth daily. 2016 active Not Available Not Available Not Avai lable mirtazapine 15 mg tablet TAKE 1 TABLET BY MOUTH ONE HOUR BEFORE BEDTIME active Not Available Not Available No t Available albuterol sulfate HFA 90 mcg/actuati on aerosol inhaler Inhale 2 puffs into the lungs. active Not Available Not Available No t Available fluticasone propionate 50 mcg/actuati on nasal spray,suspe nsion USE 1 SPRAY INTO EACH NOSTRIL TWICE DAILY 2016 active Not Available Not Available Not Avai lable sertraline 50 mg tablet Take 50 mg by mouth daily. 2019 active Not Available Not Available Not Avai lable nortriptyli ne 50 mg capsule TAKE 1 CAPSULE BY MOUTH EVERYDAY AT BEDTIME active Not Available Not Available No t Available coenzyme Q10 30 mg capsule Take by mouth. active Not Available Not Available No t Available melatonin ER 3 mg tablet,exte nded release Take by mouth. active Not Available Not Available No t Available cyclobenzap rine 5 mg tablet TAKE 1 TABLET BY MOUTH 3 TIMES DAILY NEEDED FOR MUSCLE SPASMS FOR UP TO 5 DAYS *NOT COVD* 06/08 completed Not Available Not Available Not Available cyclosporin e 0.05 % eye drops in a dropperette Apply to eye. active Not Available Not Available No t Available Marcaine (PF) 0.5 % (5 mg/mL) [...] Not Available Not Available No t Available hylan g-f 20 48 mg/6 mL intra-artic ular syringe 05/03 completed Not Available Not Available Not Available glucosamine sulf dipotassium Cl 500 mg-chondroi tin sulf 400 mg tablet Take by mouth. active Not Available Not Available No t [...] Not Available Not Available No t Available hyaluronate sodium, stabilized 60 mg/3 mL intra-artic ular syringe 04/02 completed Not Available Not Available Not Available Ozempic 0.25 mg or 0.5 mg [...] Diagnosis SNOMED-CT Code Diagnosis ICD10 Code Diagnosis IMO Codes Diagnosis Note [id number] GUERRERO BLACK [employer] [address] [address] 11/25/2022 10:01:15 11/25/2022 10:39:21 Pain of bilateral knee joints 8999111856 72218 M25.561 M25.562 Osteoarthr itis of right knee joint 9205337616 M17.11 Osteoarthr itis of left knee joint 6481716839 44336 M17.12 [id number] [facility]ERRERO BLACK [facility] [address] [place] [address] 02/23/2023 12:55:08 02/23/2023 13:29:47 Osteoarthritis of right knee joint 8636422572 M17.11 Osteoarthr itis of left knee joint 7970155604 86210 M17.12 Pain of bi lateral knee joints 1205363958 04842 M25.561 M25.562 [id number] [facility]ERRERO BLACK [facility] [address] [address] 06/08/2023 12:47:14 06/08/2023 13:30:34 Osteoarthritis of right knee joint 3316483661 M17.11 Osteoarthr itis of left knee joint 0465115782 41840 M17.12 Pain of bi lateral knee joints 8633385185 13869 M25.561 M25.562 [id number] GUERRERO BLACK [employer] [address] [address] 09/14/2023 11:29:49 09/14/2023 11:50:47 Osteoarthritis of left knee joint 5698418689 10380 M17.12 Osteoarthr itis of right knee joint 8903954200 M17.11 Pain of bi lateral knee joints 5547633505 35363 M25.561 M25.562 [id number] GUERRERO SMALL [facility] [address] [place] [address] 12/28/2023 10:35:48 12/28/2023 11:22:24 Pain of right knee joint 7654882340 46445 M25.561 Additional diagnosis detail: Pain in joint of right knee Pain of le ft knee joint 2379557748 33653 M25.562 Additional diagnosis detail: Pain in joint of left knee Osteoarthr itis of right knee joint 5224778282 15795 M17.11 Osteoarthr itis of left knee joint 0630740556 04519 M17.12 Health Concerns Section Related Observation LastModified by Organization Detai ls LastModified Time None Recorded Concern Status LastModified by Organization Details LastModified Time None Recorded Advance Directives Directive None Recorded Payers Insurance Date Sequence Insurance Name Policy Number Policy Harman Covered Member ID Harman Member ID Guarantor Name 12/25/2023 2 [facility] - PLAN 1 (MEDICARE SUPPLEMENT) [id number] 1 Destiny Pruett Papirio [id number] Destiny Lundy 12/25/2023 1 MEDICARE B[place]: [facility] [employer] Destiny Pruett Papirio [id number] Destiny Papnita Notes Date Note Type Note Provider Name [...] at this time. MICHAEL AUGUSTIN PA-C [address] [facility] [address], [place], [address], [place] [facility], P 11/25/2022 10:36:26 02/23/2023 text/html This is a 77-year-old female last seen on 11/25/2022 for which she had cortisone injections which gave her good satisfactory relief. She states this gives her approximately 3 months of relief however her symptoms have started to return of medial joint space pain. She takes ljgk-mbd-dczoubt pain medication which gives her some relief. Denies swelling denies fevers or chills here for evaluation and treatment. MICHAEL AUGUSTIN PA-C [address] [facility],[address], [place], [address], [facility] - [facility], P 02/24/2023 08:02:14 06/08/2023 text/html This is a 77-year-old female last seen on 02/23/2023 for which she had cortisone injections which gave her good satisfactory relief. She states this gives her approximately 3 months of relief however her symptoms have started to return of medial/generalized bilateral joint space pain. She takes dqfz-oxy-ummwvag pain medication which gives her some relief. Denies swelling denies fevers or chills here for evaluation and treatment. MICHAEL AUGUSTIN PA-C [address] [facility],[address], [place], [address], [facility] P 06/08/2023 13:30:46 09/14/2023 text/html This is a 77-year-old female last seen on 06/08/2023 for which she had cortisone injections which gave her good satisfactory relief. She states this gives her approximately 3 months of relief however her symptoms have started to return of medial/generalized bilateral joint space pain. She takes hexa-erq-erkevqx pain medication which gives her some relief. Denies swelling denies fevers or chills here for evaluation and treatment. MICHAEL AUGUSTIN PA-C [address] [facility],[address] [address], [place], [address], [facility], P 09/15/2023 13:26:31 12/28/2023 text/html 78-year-old female presents with bilateral knee pain. She is [...] to be a good surgical candidate. MICHAEL ABREU PA-C [address] [facility],[address] [address], [place], [address], [place] - [facility], P 12/28/2023 11:14:25 OBGyn Episode No OBEpisode recorded.
--- OUTSIDE RECORDS SUMMARY | 2025-05-29 18:41 | XMS_ITS | Clinical Summary ---
Author Organization [facility] Address [address] [place] [address] Care Team Providers Care Trauma Surgeon Name Role Phone Vy France MD Primary Care Provider [phone] Allergies Active Allergy Reactions Criticality Noted Date [...] emulsion Apply to eye. 0 Ac tive Epsom-3 Fatty Acids (FISH OIL PO) by Does [...] age to complete this topic Care Teams Trauma Surgeon Relationship Specialty Start Date End Date Vy France MD PCP - General Internal Medicine 02/27/17
== END 2025-05-29 13:33 | disposition home or self-care (01) ==
LOC: HO.HOS 13:06
PROVIDERS: PCP Internal Medicine; Visit Provider Orthopaedic Surgery
DX: M17.0 Bilateral primary osteoarthritis of knee (principal)
CPT/HCPCS: 20610; 99213

== ENCOUNTER → 2025-05-29 13:05 | Outpatient (BNVA) | payer MEDICARE, OTHER, SELFPAY | PROVIDERS: PCP Internal Medicine; Visit Provider Orthopaedic Surgery | DX: M17.0 Bilateral primary osteoarthritis of knee (principal); Z79.01 Long term (current) use of anticoagulants; Z87.891 Personal history of nicotine dependence | CPT/HCPCS: 20610; 99212; J1010; J2003 ==